=== PATIENT | male | born 1980 | race Caucasian/White ===

== ENCOUNTER 2019-08-15 20:47 | Emergency (ER) | payer OTHER ==
[~2019-08-15] VITALS: Ht 180 cm; Wt 81.0 kg
[2019-08-15] MEDS ORDERED: PROMETHAZINE INJ 25 MG/ML (PHENERGAN) AMP IVP STA (21:18)
[2019-08-15] MEDS ORDERED: NS IV 1000 ML 1,000 ML IV SCH (21:18)
[2019-08-15] MEDS ORDERED: morphine INJ 10 MG/ML 1ML (SYR OR VIAL) IVP STA (21:19)
[2019-08-15 21:21] LABS: BASOPHILS % (AUTO) 0 % (0-10); EOSINOPHILS # (AUTO) 0.5 10^3/uL (0.0-0.3); EOSINOPHILS % (AUTO) 5 % (0-10); HEMATOCRIT 44 % (40-54); HEMOGLOBIN 14.4 G/DL (13.3-17.7); LYMPHOCYTES # (AUTO) 2.5 X 10^3 (1.0-4.0); LYMPHOCYTES % (AUTO) 24 % (12-44); MEAN CORPUSCULAR HEMOGLOBIN 30 PG (25-34); MEAN CORPUSCULAR HGB CONC 33 G/DL (32-36); MEAN CORPUSCULAR VOLUME 91 FL (80-99); MEAN PLATELET VOLUME 10.8 FL (7.4-10.4); MONOCYTES # (AUTO) 0.6 X 10^3 (0.0-1.0); MONOCYTES % (AUTO) 6 % (0-12); NEUTROPHILS # (AUTO) 6.6 X 10^3 (1.8-7.8); NEUTROPHILS % (AUTO) 65 % (42-75); PLATELET COUNT 239 10^3/uL (130-400); RED CELL DISTRIBUTION WIDTH 14.9 % (10.0-14.5); WHITE BLOOD COUNT 10.3 10^3/uL (4.3-11.0)
--- NOTE | 2019-08-15 21:31 | ED GU-Male ---
General Chief Complaint: Abdominal/GI Problems Stated Complaint: KIDNEY STONE SYMPTOMS Nursing Triage Note: PT AMBULATES TO [facility] WITH c/o RIGHT SIDED FLANK PAIN, STARTED AT 2000 THIS EVENING. PT HAS HX OF KIDNEY STONES AND REPORTS PASSING A FEW LAST WEEK. PT ALSO REPORTS N/V WITH ONSET OF PAIN. History of Present Illness Date Seen by Provider: Aug 15, 2019 Time Seen by Provider: 21:00 Initial Comments 39-year-old male presents for right sided abdominal and low back pain compatible with kidney stone. She chronically has kidney stones and kidney disease. He sees a Disability Benefits Specialist in [place], [place]. He is on Morphine ER po at home for chronic kidney pain and breakthrough pain. He also vomited, due to the pain. Symptoms began at 2000 tonight. He reports last passing stones 2 weeks ago. They are usually small enough to pass and he hasn't required surgery for several years. Patient tearful, from pain. Patient taking Amoxicillin from his PCP for UTI. Timing/Duration: just prior to arrival Severity/Quality: severe Location: RLQ Radiation: right flank Activities at Onset: none Associated Symptoms: abdominal pain, dysuria, lower back pain, nausea/vomiting Allergies and Home Medications Allergies Coded Allergies: acetaminophen (Unverified Allergy, Intermediate, 08/15/19) dexamethasone (Unverified Allergy, Intermediate, 08/15/19) fentanyl (Unverified Allergy, Intermediate, 08/15/19) glycopyrrolate (Unverified Allergy, Intermediate, 08/15/19) ketorolac (Unverified Allergy, Intermediate, 08/15/19) metoclopramide (Unverified Allergy, Intermediate, 08/15/19) oxycodone (Unverified Allergy, Intermediate, 08/15/19) prochlorperazine (Unverified Allergy, Intermediate, 08/15/19) promethazine (Unverified Allergy, Intermediate, 08/15/19) suppository route only Patient Home Medication List Home Medication List Reviewed: Yes Review of Systems Review of Systems Constitutional: no symptoms reported, see HPI Gastrointestinal: RLQ, see HPI Genitourinary: see HPI, flank pain All Other Systemes Reviewed Negative Unless Noted: Yes Past Dswjtde-Pgaduh-Vxgiho Hx Past Med/Social Hx: Reviewed Nursing Past Med/Soc Hx Patient Social History Alcohol Use: Denies Use Recreational Drug Use: No Smoking Status: Never a Smoker 2nd Hand Smoke Exposure: No Recent Foreign Travel: No Contact w/Someone Who Travel: No Recent Infectious Disease Expo: No Recent Hopitalizations: No Physical Abuse: No Sexual Abuse: No Mistreated: No Fear: No Seasonal Allergies Seasonal Allergies: No Past Medical History Surgeries: Yes (2 LITHOTRIPSY ) Respiratory: No Cardiac: No Neurological: No Genitourinary: No Gastrointestinal: No Musculoskeletal: No Endocrine: No HEENT: No Cancer: No Psychosocial: No Integumentary: No Blood Disorders: No Physical Exam Vital Signs Vital Signs - First Documented 08/15/19 20:55 Temp 37.2 Pulse 135 Resp 18 B/P (MAP) 136/89 (105) Pulse Ox 89 O2 Delivery Room Air Capillary Refill : Less Than 3 Seconds Height, Weight, BMI Height: '" Weight: lbs. oz. kg; 25.00 BMI Method: General Appearance: WD/WN, no apparent distress HEENT: PERRL/EOMI, normal ENT inspection, TMs normal, pharynx normal Neck: non-tender, full range of motion, supple, normal inspection Cardiovascular: normal peripheral pulses, regular rate, rhythm Respiratory: chest non-tender, lungs clear, normal breath sounds Gastrointestinal: normal bowel sounds, soft; No distended, No guarding, No rebound; tenderness (right lower quadrant) Back: normal inspection, no vertebral tenderness, CVA tenderness (R); No CVA tenderness (L) Extremities: normal range of motion, non-tender, normal inspection Neurologic/Psychiatric: no motor/sensory deficits, alert, normal mood/affect, oriented x 3 Skin: normal color, warm/dry Progress/Results/Core Measures Suspected Sepsis Recent Fever Within 48 Hours: No Infection Criteria Present: None New/Unexplained Altered Menta: No Sepsis Screen: No Definite Risk SIRS Temperature: Pulse: 135 Respiratory Rate: 18 Laboratory Tests 08/15/19 21:10: White Blood Count 10.3 Blood Pressure 136 /89 Mean: 105 Laboratory Tests 08/15/19 21:10: Creatinine 3.35H, Platelet Count 239, Total Bilirubin 0.4 Results/Orders Lab Results Laboratory Tests Test 08/15/19 21:10 08/15/19 21:24 Range/Units White Blood Count 10.3 4.3-11.0 10^3/uL Red Blood Count 4.85 4.35-5.85 10^6/uL Hemoglobin 14.4 13.3-17.7 G/DL Hematocrit 44 40-54 % Mean Corpuscular Volume 91 80-99 FL Mean Corpuscular Hemoglobin 30 25-34 PG Mean Corpuscular Hemoglobin Concent 33 32-36 G/DL Red Cell Distribution Width 14.9 H 10.0-14.5 % Platelet Count 239 130-400 10^3/uL Mean Platelet Volume 10.8 H 7.4-10.4 FL Neutrophils (%) (Auto) 65 42-75 % Lymphocytes (%) (Auto) 24 12-44 % Monocytes (%) (Auto) 6 0-12 % Eosinophils (%) (Auto) 5 0-10 % Basophils (%) (Auto) 0 0-10 % Neutrophils # (Auto) 6.6 1.8-7.8 X 10^3 Lymphocytes # (Auto) 2.5 1.0-4.0 X 10^3 Monocytes # (Auto) 0.6 0.0-1.0 X 10^3 Eosinophils # (Auto) 0.5 H 0.0-0.3 10^3/uL Basophils # (Auto) 0.0 0.0-0.1 10^3/uL Sodium Level 142 135-145 MMOL/L Potassium Level 3.4 L 3.6-5.0 MMOL/L Chloride Level 106 98-107 MMOL/L Carbon Dioxide Level 24 21-32 MMOL/L Anion Gap 12 5-14 MMOL/L Blood Urea Nitrogen 29 H 7-18 MG/DL Creatinine 3.35 H 0.60-1.30 MG/DL Estimat Glomerular Filtration Rate 21 BUN/Creatinine Ratio 9 Glucose Level 135 H 70-105 MG/DL Calcium Level 9.2 8.5-10.1 MG/DL Corrected Calcium 8.8 8.5-10.1 MG/DL Total Bilirubin 0.4 0.1-1.0 MG/DL Aspartate Amino Transf (AST/SGOT) 22 5-34 U/L Alanine Aminotransferase (ALT/SGPT) 26 0-55 U/L Alkaline Phosphatase 162 H 40-136 U/L Total Protein 8.5 H 6.4-8.2 GM/DL Albumin 4.5 3.2-4.5 GM/DL Urine Color YELLOW Urine Clarity CLEAR Urine pH 7 5-9 Urine Specific [place] 1.015 L 1.016-1.022 Urine Protein 3+ H NEGATIVE Urine Glucose (UA) 2+ H NEGATIVE Urine Ketones NEGATIVE NEGATIVE Urine Nitrite NEGATIVE NEGATIVE Urine Bilirubin NEGATIVE NEGATIVE Urine Urobilinogen NORMAL NORMAL MG/DL Urine Leukocyte Esterase 3+ H NEGATIVE Urine RBC (Auto) 3+ H NEGATIVE Urine RBC 0-2 /HPF Urine WBC 50-100 H /HPF Urine Squamous Epithelial Cells NONE /HPF Urine Crystals NONE /LPF Urine Bacteria FEW H /HPF Urine Casts NONE /LPF Urine Mucus NEGATIVE /LPF Urine Culture Indicated YES My Orders Orders - MARVIN WILLIAMSON Ua Culture If Indicated (08/15/19 20:54) Ct Abd/Pelvis Wo(Kidney Stone) (08/15/19 21:05) Cbc With Automated Diff (08/15/19 21:05) Comprehensive Metabolic Panel (08/15/19 21:05) Ed Iv/Invasive Line Start (08/15/19 21:10) Promethazine Injection (Phenergan Injec (08/15/19 21:18) Ed Iv/Invasive Line Start (08/15/19 21:18) Ns Iv 1000 Ml (Sodium Chloride 0.9%) (08/15/19 21:18) Morphine Injection (Morphine Injection (08/15/19 21:19) Urine Culture (08/15/19 21:24) Vital Signs/I&O 08/15/19 20:55 Temp 37.2 Pulse 135 Resp 18 B/P (MAP) 136/89 (105) Pulse Ox 89 O2 Delivery Room Air Capillary Refill : Less Than 3 Seconds Blood Pressure Mean: 105 Progress Note : Time: 21:00 Progress Note Patient seen and evaluated, we'll obtain CT of the abdomen and pelvis for kidney stones, Phenergan 25 mg IV for nausea and vomiting(Patient can having IV Phenergan, does not tolerate Phenergan suppository), morphine 5 mg IV for pain, normal saline 1 L per IV. Pain 05/19 2145 Pain 02/[address] findings with the patient and his mother. He does report that his last creatinine was around 3.2 but he is unsure of the exact amount. Today at 3.35. She reports no further nausea and vomiting. Pain continues to be maintained. Discharge instructions and return precautions reviewed with him. He will schedule follow-up with his automatic spooler operator. Diagnostic Imaging Diagonstic Imaging: CT Plain Films/CT/US/NM/MRI: abdomen, pelvis Comments NAME: YUE GIL [facility] REC#: [id number] PT STATUS: REG ER : 1980 PHYSICIAN: MARVIN WILLIAMSON ADMIT DATE: 08/15/19/ER Draft Date of Exam:08/15/19 CT ABD/PELVIS WO(KIDNEY STONE) INDICATION: Abdominal pain, history of kidney stones. CT abdomen and pelvis obtained without IV contrast. Visualized portions of the lung bases are clear. There were no pleural fluid collections. There is no free intraperitoneal air. The liver and gallbladder appear normal. Spleen, adrenals, and pancreas appear normal. Kidneys bilaterally show numerous nonocclusive stones throughout both kidneys as well as some medullary calcifications. There is a cyst in the right kidney measuring about 3 cm. There is no retroperitoneal mass or adenopathy. There is no ureteral stone or hydronephrosis. There is no pelvic mass. Visualized bowel loops including the appendix appear unremarkable. IMPRESSION: Extensive bilateral nephrolithiasis. Benign-appearing cyst in right kidney. There is no hydronephrosis or ureteral stone. Dictated on workstation # [id number] Dict: 08/15/192135 Trans: 08/15/192141 [facility] [id number] Interpreted by: LUCIA HAIRSTON MD Electronically signed by: Reviewed: Reviewed by Me Departure Impression Primary Impression: Recurrent nephrolithiasis Additional Impressions: Urinary tract infection Qualified Codes: N30.01 - Acute cystitis with hematuria Chronic kidney disease (CKD) Qualified Codes: N18.9 - Chronic kidney disease, unspecified Disposition: HOME, SELF-CARE Condition: Improved Departure-Patient Inst. Decision time for Depature: 22:15 Referrals: SEAN MCGREGOR MD (PCP/Family) Primary Care Physician Patient Instructions: Kidney Stones (DC) Add. Discharge Instructions: Continue taking your amoxicillin. Continue taking your home medications for pain and nausea. Schedule follow-up with your automatic spooler operator. Return to the emergency department for fever greater than 101 not relieved by Tylenol or ibuprofen, persistent nausea and vomiting, or new concerns. All discharge instructions reviewed with patient and/or family. Voiced understanding. MARVIN WILLIAMSON Aug 15, 2019 21:31
[2019-08-15 21:36] LABS: BILIRUBIN,URINE NEGATIVE (NEGATIVE); CLARITY,URINE CLEAR; COLOR,URINE YELLOW; GLUCOSE, URINE (UA) 2+ (NEGATIVE); KETONES,URINE NEGATIVE (NEGATIVE); LEUKOCYTE ESTERASE ,URINE 3+ (NEGATIVE); NITRITE,URINE NEGATIVE (NEGATIVE); PH,URINE 7 (5-9); PROTEIN,URINE 3+ (NEGATIVE); UROBILINOGEN,URINE NORMAL (NORMAL)
[2019-08-15 21:43] LABS: BACTERIA,URINE FEW /HPF; RBC,URINE 0-2 /HPF; WBC,URINE 50-100 /HPF
[2019-08-15 21:44] LABS: ALBUMIN 4.5 GM/DL (3.2-4.5); BILIRUBIN,TOTAL 0.4 MG/DL (0.1-1.0); CALCIUM 9.2 MG/DL (8.5-10.1); CREATININE SERUM 3.35 MG/DL (0.60-1.30); POTASSIUM 3.4 MMOL/L (3.6-5.0); TOTAL PROTEIN 8.5 GM/DL (6.4-8.2)
--- NOTE | 2019-08-15 21:44 | Diagnostic Imaging Report ---
INDICATION: Abdominal pain, history of kidney stones. CT abdomen and pelvis obtained without IV contrast. Visualized portions of the lung bases are clear. There were no pleural fluid collections. There is no free intraperitoneal air. The liver and gallbladder appear normal. Spleen, adrenals, and pancreas appear normal. Kidneys bilaterally show numerous nonocclusive stones throughout both kidneys as well as some medullary calcifications. There is a cyst in the right kidney measuring about 3 cm. There is no retroperitoneal mass or adenopathy. There is no ureteral stone or hydronephrosis. There is no pelvic mass. Visualized bowel loops including the appendix appear unremarkable. IMPRESSION: Extensive bilateral nephrolithiasis. Benign-appearing cyst in right kidney. There is no hydronephrosis or ureteral stone. Dictated by: Dictated on workstation # [id number]
[2019-08-15 22:38] VITALS: BP 130/88
== END 2019-08-15 22:38 | disposition home or self-care (01) ==
LOC: EDUNIT# 20:47 → ER 20:50
DX: N20.0 Calculus of kidney (principal); N39.0 Urinary tract infection, site not specified; N18.9 Chronic kidney disease, unspecified; Z88.6 Allergy status to analgesic agent; Z88.5 Allergy status to narcotic agent; Z88.8 Allergy status to other drugs, medicaments and biological substances
CPT/HCPCS: 36415; 74176; 80053; 81000; 85025; 87088

== ENCOUNTER 2021-03-13 15:44 | Emergency (ER) | payer MEDICARE, MEDICAID ==
[~2021-03-13] VITALS: Ht 180.3 cm; Wt 67.7 kg
[2021-03-13 16:11] LABS: BILIRUBIN,URINE NEGATIVE (NEGATIVE); CLARITY,URINE CLEAR; COLOR,URINE YELLOW; GLUCOSE, URINE (UA) TRACE (NEGATIVE); KETONES,URINE NEGATIVE (NEGATIVE); LEUKOCYTE ESTERASE ,URINE TRACE (NEGATIVE); NITRITE,URINE POSITIVE (NEGATIVE); PROTEIN,URINE 2+ (NEGATIVE)
[2021-03-13 16:20] LABS: AMORPHOUS SEDIMENT,UR FEW AMOR URATES /LPF; BACTERIA,URINE TRACE /HPF; RENAL EPITHELIAL CELLS,URINE 0-2 /HPF; SQUAMOUS EPITHELIAL CELL,UR 0-2 /HPF
[2021-03-13] MEDS ORDERED: NS IV 1000 ML 1,000 ML IV SCH (16:30)
[2021-03-13] MEDS ORDERED: fentaNYL INJ 100 MCG/2 ML AMP IVP ONE (16:45)
[2021-03-13] MEDS ORDERED: ONDANSETRON 4 MG/2 ML (SDV) Z0FRAN IVP ONE (16:45)
[2021-03-13] MEDS ORDERED: morphine INJ 4 MG/ML 1 ML (VIAL/SYRINGE) IVP ONE (16:45)
[2021-03-13] MEDS ORDERED: morphine INJ 10 MG/ML 1ML (SYR OR VIAL) ONE (16:48)
[2021-03-13 16:49] LABS: BASOPHILS # (AUTO) 0.1 10^3/uL (0.0-0.1); BASOPHILS % (AUTO) 1 % (0-10); EOSINOPHILS % (AUTO) 0 % (0-10); HEMATOCRIT 35 % (40-54); HEMOGLOBIN 11.2 g/dL (13.3-17.7); LYMPHOCYTES # (AUTO) 1.7 10^3/uL (1.0-4.0); LYMPHOCYTES % (AUTO) 23 % (12-44); MEAN CORPUSCULAR HEMOGLOBIN 30 pg (25-34); MEAN CORPUSCULAR HGB CONC 32 g/dL (32-36); MEAN CORPUSCULAR VOLUME 95 fL (80-99); MEAN PLATELET VOLUME 12.1 fL (9.0-12.2); MONOCYTES # (AUTO) 0.3 10^3/uL (0.0-1.0); MONOCYTES % (AUTO) 5 % (0-12); NEUTROPHILS # (AUTO) 5.1 10^3/uL (1.8-7.8); NEUTROPHILS % (AUTO) 71 % (42-75); PLATELET COUNT 175 10^3/uL (130-400); WHITE BLOOD COUNT 7.2 10^3/uL (4.3-11.0)
[2021-03-13] MEDS ORDERED: morphine INJ 10 MG/ML 1ML (SYR OR VIAL) IVP STA (16:53)
[2021-03-13 16:57] LABS: AMPHETAMINE SCREEN, URINE NEGATIVE (NEGATIVE); BARBITURATE SCREEN URINE NEGATIVE (NEGATIVE); BENZODIAZEPINES SCREEN URINE NEGATIVE (NEGATIVE); CANNABINOID SCREEN, URINE NEGATIVE (NEGATIVE); COCAINE SCREEN URINE NEGATIVE (NEGATIVE); METHADONE STAT NEGATIVE (NEGATIVE); METHAMPHETAMINE SCREEN URINE S NEGATIVE (NEGATIVE); OPIATE SCREEN URINE POSITIVE (NEGATIVE); OXYCODONE STAT NEGATIVE (NEGATIVE); PROPOXYPHENE STAT NEGATIVE (NEGATIVE); TRICYCLIC ANTIDEPRESSANTS SCRE NEGATIVE (NEGATIVE)
[2021-03-13 17:04] LABS: ALBUMIN 4.1 GM/DL (3.2-4.5); BILIRUBIN,TOTAL 0.5 MG/DL (0.1-1.0); CALCIUM 8.9 MG/DL (8.5-10.1); CREATININE SERUM 3.47 MG/DL (0.60-1.30); POTASSIUM 2.8 MMOL/L (3.6-5.0); TOTAL PROTEIN 7.6 GM/DL (6.4-8.2)
--- NOTE | 2021-03-13 17:43 | Diagnostic Imaging Report ---
PROCEDURE: CT urinary tract, rule out kidney stone. TECHNIQUE: Multiple contiguous axial images were obtained through the abdomen and pelvis without the use of intravenous contrast. Auto Exposure Controls were utilized during the CT exam to meet ALARA standards for radiation dose reduction. INDICATION: Right flank pain, history of nephrolithiasis. COMPARISON: Exam compared with study of 08/15/2019. 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 There is no hydroureteronephrosis. A right renal cyst is unchanged. No perinephric or periureteric edema. No radiopaque ureteral calculi. There was no bladder stone. The bladder wall is non thickened. Uterus is absent. No adnexal lesion. There is noninflamed diverticulosis of the sigmoid. The appendix is unremarkable. There are stones layering within the dependent gallbladder. No bile duct dilatation. Spleen, adrenals, and pancreas are unremarkable. IMPRESSION: Bilateral nephrolithiasis, unchanged. No hydronephrosis or ureteral stone. Nonacute appendix. Noninflamed diverticulosis. Cholelithiasis without CT findings of acute cholecystitis or biliary ductal dilatation. Dictated by: Dictated on workstation # [id number]
[2021-03-13] MEDS: POTASSIUM CL 10MEQ/50ML IVPB 50 ML IV SCH ×2 (17:56→18:58)
--- NOTE | 2021-03-13 17:56 | ED GU-Male ---
General Chief Complaint: Abdominal/GI Problems Stated Complaint: FLANK PAIN Nursing Triage Note: AMB TO ED WITH FEMALE C/O R SIDE PAIN HAS PMH OF KIDNEY DIEASE AND SEE'S NEPHROLOGY IN [place] HAS APPOINTMENT ON 03/15 REPORTS KIDNEYS HAS LOTS OF STONES. History of Present Illness Date Seen by Provider: March 13, 2021 Time Seen by Provider: 15:50 Initial Comments 41-year-old male presents for bilateral flank pain. He has had multiple kidney stones in the past and follows with a cook house supervisor in [place] for medullary sponge kidney disease. He complains of significant nausea and vomited after taking his morphine at home. He has an appointment scheduled in 2 days with his cook house supervisor. He last passed kidney stones approximately 4 weeks ago. Timing/Duration: this afternoon Severity/Quality: moderate Location: right flank, left flank Activities at Onset: none Associated Symptoms: lower back pain, nausea/vomiting Allergies and Home Medications Allergies Coded Allergies: acetaminophen (Unverified Allergy, Intermediate, 08/15/19) dexamethasone (Unverified Allergy, Intermediate, 08/15/19) fentanyl (Unverified Allergy, Intermediate, 08/15/19) glycopyrrolate (Unverified Allergy, Intermediate, 08/15/19) ketorolac (Unverified Allergy, Intermediate, 08/15/19) metoclopramide (Unverified Allergy, Intermediate, 08/15/19) oxycodone (Unverified Allergy, Intermediate, 08/15/19) prochlorperazine (Unverified Allergy, Intermediate, 08/15/19) promethazine (Unverified Allergy, Intermediate, 08/15/19) suppository route only Home Medications Nitrofurantoin Macrocrystal 100 Mg Capsule, 100 MG PO BID Prescribed by: MARVIN WILLIAMSON on 03/13/211913 Ondansetron 4 Mg Tab.rapdis, 4 MG PO Q6H PRN for NAUSEA/VOMITING Prescribed by: MARVIN WILLIAMSON on 03/13/211913 Patient Home Medication List Home Medication List Reviewed: Yes Review of Systems Review of Systems Constitutional: no symptoms reported, see HPI Gastrointestinal: see HPI; No diarrhea; nausea, vomiting Genitourinary: see HPI, dysuria, pain All Other Systemes Reviewed Negative Unless Noted: Yes Past Zdyhqal-Qrxyyp-Dpulvq Hx Past Med/Social Hx: Reviewed Nursing Past Med/Soc Hx Patient Social History Alcohol Use: Denies Use Smoking Status: Never a Smoker 2nd Hand Smoke Exposure: No Recent Infectious Disease Expo: No Recent Hopitalizations: No Seasonal Allergies Seasonal Allergies: No Past Medical History Surgeries: Yes (2 LITHOTRIPSY ) Respiratory: No Cardiac: No Neurological: No Genitourinary: Yes Gastrointestinal: No Musculoskeletal: No Endocrine: No HEENT: No Cancer: No Psychosocial: No Integumentary: No Blood Disorders: No Physical Exam Vital Signs Vital Signs - First Documented 03/13/21 15:48 Temp 36.5 Pulse 100 Resp 18 B/P (MAP) 130/66 (87) Pulse Ox 100 O2 Delivery Room Air Capillary Refill : Less Than 3 Seconds Height, Weight, BMI Height: '" Weight: lbs. oz. kg; 20.00 BMI Method: General Appearance: WD/WN, no apparent distress HEENT: PERRL/EOMI, normal ENT inspection, TMs normal, pharynx normal Neck: non-tender, full range of motion, supple, normal inspection Cardiovascular: normal peripheral pulses, regular rate, rhythm Respiratory: chest non-tender, lungs clear, normal breath sounds Gastrointestinal: normal bowel sounds, non tender, soft; No distended, No guarding, No rebound, No tenderness Back: CVA tenderness (R), CVA tenderness (L) Extremities: normal range of motion, non-tender, normal inspection Neurologic/Psychiatric: no motor/sensory deficits, alert, normal mood/affect, oriented x 3 Skin: normal color, warm/dry Progress/Results/Core Measures Suspected Sepsis Recent Fever Within 48 Hours: No Infection Criteria Present: None New/Unexplained Altered Menta: No Sepsis Screen: No Definite Risk SIRS Temperature: Pulse: 100 Respiratory Rate: 18 Laboratory Tests 03/13/21 16:00: White Blood Count 7.2 Blood Pressure 130 /66 Mean: 87 Laboratory Tests 03/13/21 16:00: Creatinine 3.47H, Platelet Count 175, Total Bilirubin 0.5 Results/Orders Lab Results Laboratory Tests Test 03/13/21 16:00 03/13/21 16:05 Range/Units White Blood Count 7.2 4.3-11.0 10^3/uL Red Blood Count 3.71 L 4.30-5.52 10^6/uL Hemoglobin 11.2 L 13.3-17.7 g/dL Hematocrit 35 L 40-54 % Mean Corpuscular Volume 95 80-99 fL Mean Corpuscular Hemoglobin 30 25-34 pg Mean Corpuscular Hemoglobin Concent 32 32-36 g/dL Red Cell Distribution Width 13.5 10.0-14.5 % Platelet Count 175 130-400 10^3/uL Mean Platelet Volume 12.1 9.0-12.2 fL Immature Granulocyte % (Auto) 0 % Neutrophils (%) (Auto) 71 42-75 % Lymphocytes (%) (Auto) 23 12-44 % Monocytes (%) (Auto) 5 0-12 % Eosinophils (%) (Auto) 0 0-10 % Basophils (%) (Auto) 1 0-10 % Neutrophils # (Auto) 5.1 1.8-7.8 10^3/uL Lymphocytes # (Auto) 1.7 1.0-4.0 10^3/uL Monocytes # (Auto) 0.3 0.0-1.0 10^3/uL Eosinophils # (Auto) 0.0 0.0-0.3 10^3/uL Basophils # (Auto) 0.1 0.0-0.1 10^3/uL Immature Granulocyte # (Auto) 0.0 0.0-0.1 10^3/uL Sodium Level 140 135-145 MMOL/L Potassium Level 2.8 L 3.6-5.0 MMOL/L Chloride Level 103 98-107 MMOL/L Carbon Dioxide Level 29 21-32 MMOL/L Anion Gap 8 5-14 MMOL/L Blood Urea Nitrogen 22 H 7-18 MG/DL Creatinine 3.47 H 0.60-1.30 MG/DL Estimat Glomerular Filtration Rate 20 BUN/Creatinine Ratio 6 Glucose Level 113 H 70-105 MG/DL Calcium Level 8.9 8.5-10.1 MG/DL Corrected Calcium 8.8 8.5-10.1 MG/DL Total Bilirubin 0.5 0.1-1.0 MG/DL Aspartate Amino Transf (AST/SGOT) 16 5-34 U/L Alanine Aminotransferase (ALT/SGPT) 11 0-55 U/L Alkaline Phosphatase 75 40-136 U/L Total Protein 7.6 6.4-8.2 GM/DL Albumin 4.1 3.2-4.5 GM/DL Urine Color YELLOW Urine Clarity CLEAR Urine pH 6.0 5-9 Urine Specific [place] 1.020 1.016-1.022 Urine Protein 2+ H NEGATIVE Urine Glucose (UA) TRACE H NEGATIVE Urine Ketones NEGATIVE NEGATIVE Urine Nitrite POSITIVE H NEGATIVE Urine Bilirubin NEGATIVE NEGATIVE Urine Urobilinogen 0.2 < = 1.0 MG/DL Urine Leukocyte Esterase TRACE H NEGATIVE Urine RBC (Auto) 2+ H NEGATIVE Urine RBC NONE /HPF Urine WBC 5-10 H /HPF Urine Squamous Epithelial Cells 0-2 /HPF Urine Renal Epithelial Cells 0-2 /HPF Urine Crystals PRESENT H /LPF Urine Amorphous Sediment FEW LUCINDA URATES H /LPF Urine Bacteria TRACE /HPF Urine Casts NONE /LPF Urine Mucus NEGATIVE /LPF Urine Culture Indicated YES Urine Opiates Screen POSITIVE H NEGATIVE Urine Oxycodone Screen NEGATIVE NEGATIVE Urine Methadone Screen NEGATIVE NEGATIVE Urine Propoxyphene Screen NEGATIVE NEGATIVE Urine Barbiturates Screen NEGATIVE NEGATIVE Ur Tricyclic Antidepressants Screen NEGATIVE NEGATIVE Urine Phencyclidine Screen NEGATIVE NEGATIVE Urine Amphetamines Screen NEGATIVE NEGATIVE Urine Methamphetamines Screen NEGATIVE NEGATIVE Urine Benzodiazepines Screen NEGATIVE NEGATIVE Urine Cocaine Screen NEGATIVE NEGATIVE Urine Cannabinoids Screen NEGATIVE NEGATIVE My Orders Orders - CLAY,MARVIN DEVELOPMENTAL WRITING INSTRUCTOR Ua Culture If Indicated (03/13/21 15:47) Urine Culture (03/13/21 16:05) Ed Iv/Invasive Line Start (03/13/21 16:22) Ns Iv 1000 Ml (Sodium Chloride 0.9%) (03/13/21 16:30) Drug Screen Stat (Urine) (03/13/21 16:32) Ondansetron Injection (Zofran Injectio (03/13/21 16:45) Ct Abd/Pelvis Wo(Kidney Stone) (03/13/21 16:43) Cbc With Automated Diff (03/13/21 16:44) Comprehensive Metabolic Panel (03/13/21 16:44) Morphine Injection (Morphine Injection (03/13/21 16:53) Morphine Injection (Morphine Injection (03/13/21 16:48) Potassium Cl 10meq/50ml Ivpb (Kcl 10 Meq (03/13/21 17:45) Ceftriaxone For Iv Use (Rocephin For I (03/13/21 18:15) Rx-Nitrofurantoin [place] (Rx-Macrobid) (03/13/21 18:18) Rx-Ondansetron Po (Rx-Zofran Po) (03/13/21 18:18) Medications Given in ED Current Medications Medications Dose Ordered Sig/Ashley Route Start Time Stop Time Status Last Admin Dose Admin Ceftriaxone Sodium 2000 mg/ Sterile Water 20 ml @ 240 mls/hr ONCE ONCE IV 03/13/21 18:15 03/13/21 18:19 DC 03/13/21 18:25 240 MLS/HR Ondansetron HCl 8 mg ONCE ONCE IVP 03/13/21 16:45 03/13/21 16:46 DC 03/13/21 16:57 8 MG Vital Signs/I&O 03/13/21 03/13/21 15:48 19:38 Temp 36.5 36.5 Pulse 100 89 Resp 18 18 B/P (MAP) 130/66 (87) 128/67 (87) Pulse Ox 100 100 O2 Delivery Room Air Capillary Refill : Less Than 3 Seconds Blood Pressure Mean: 87 Progress Note : Time: 15:50 Progress Note Patient seen and evaluated, will give Toradol 30 mg IV, Zofran 8 mg IV, normal saline 1 L per IV, labs and obtain a CT of the abdomen pelvis for kidney stones. 1640 no nephrolithiasis, pain has improved after morphine 5 mg IV no further nausea or vomiting. Potassium is low we will give 20 mEq IV. 1730 UA results reviewed with the patient, will give Rocephin 2 g IV. 183 discharge instructions and return precautions reviewed with the patient. All questions answered. Diagnostic Imaging Diagonstic Imaging: CT Plain Films/CT/US/NM/MRI: abdomen, pelvis Comments NAME: YUE GIL [facility] REC#: [id number] PT STATUS: REG ER : 1980 PHYSICIAN: MARVIN WILLIAMSONP ADMIT DATE: 03/13/21/ER Signed Date of Exam:03/13/21 CT ABD/PELVIS WO(KIDNEY STONE) PROCEDURE: CT urinary tract, rule out kidney stone. TECHNIQUE: Multiple contiguous axial images were obtained through the abdomen and pelvis without the use of intravenous contrast. Auto Exposure Controls were utilized during the CT exam to meet ALARA standards for radiation dose reduction. INDICATION: Right flank pain, history of nephrolithiasis. COMPARISON: Exam compared with study of 08/15/2019. 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 There is no hydroureteronephrosis. A right renal cyst is unchanged. No perinephric or periureteric edema. No radiopaque ureteral calculi. There was no bladder stone. The bladder wall is non thickened. Uterus is absent. No adnexal lesion. There is noninflamed diverticulosis of the sigmoid. The appendix is unremarkable. There are stones layering within the dependent gallbladder. No bile duct dilatation. Spleen, adrenals, and pancreas are unremarkable. IMPRESSION: Bilateral nephrolithiasis, unchanged. No hydronephrosis or ureteral stone. Nonacute appendix. Noninflamed diverticulosis. Cholelithiasis without CT findings of acute cholecystitis or biliary ductal dilatation. Dictated by: Dictated on workstation # [id number] Dict: 03/13/21 1735 Trans: 03/13/211742 AS6 [id number] Interpreted by: CHARLIE STEELE Electronically signed by: CHARLIE STEELE 03/13/211742 Departure Impression Primary Impression: Medullary sponge kidney Additional Impressions: Urinary tract infection Qualified Codes: N30.01 - Acute cystitis with hematuria Nausea and vomiting Qualified Codes: R11.2 - Nausea with vomiting, unspecified Disposition: HOME, SELF-CARE Condition: Improved Departure-Patient Inst. Decision time for Depature: 18:30 Referrals: SEAN MCGREGOR MD (PCP/Family) Primary Care Physician Patient Instructions: Urinary Tract Infection, Adult (DC) Add. Discharge Instructions: Increase water intake, 16 ounces every 2-3 hours while awake. Take antibiotics as prescribed. Keep your scheduled follow-up with nephrology. Use Zofran every 6-8 hours as needed for nausea and vomiting. Return to the emergency department for new, urgent healthcare problems. All discharge instructions reviewed with patient and/or family. Voiced understanding. Scripts Ondansetron (Ondansetron Odt) 4 Mg Tab.rapdis 4 MG PO Q6H PRN for NAUSEA/VOMITING, #8 TAB 0 Refills Prov: MARVIN WILLIAMSON DEVELOPMENTAL WRITING INSTRUCTOR 03/13/21 Nitrofurantoin Macrocrystal (Nitrofurantoin) 100 Mg Capsule 100 MG PO BID, #14 CAP 0 Refills Prov: MARVIN WILLIAMSON DEVELOPMENTAL WRITING INSTRUCTOR 03/13/21 MARVIN WILLIAMSON DEVELOPMENTAL WRITING INSTRUCTOR March 13, 2021 17:56
[2021-03-13] MEDS ORDERED: cefTRIAXone FOR IV USE 2,000 MG in WATER (STERILE) FOR INJECTION 20 ML IV ONE (18:15)
[2021-03-13] MEDS ORDERED: RX-NITROFURANTOIN 100 MG (MACROBID) CAP PPK#2 PO STA (18:18)
[2021-03-13] MEDS ORDERED: RX-ONDANSETRON 4 MG ODT (ZOFRAN) PPK #4 PO STA (18:18)
[2021-03-13] MEDS ORDERED: ONDA4TAB11 PO (19:14)
[2021-03-13] MEDS ORDERED: NITR100C PO (19:14)
[2021-03-13 19:38] VITALS: BP 128/67
[2021-03-15] MEDS ORDERED: morphine IMMEDIATE RELEASE 15 MG TABLET PO SCH (14:15)
[2021-03-15] MEDS ORDERED: ONDANSETRON 4 MG/2 ML (SDV) Z0FRAN IVP ONE (14:15)
[2021-03-15] MEDS ORDERED: NS IV 1000 ML 1,000 ML IV SCH (14:15)
== END 2021-03-13 19:38 | disposition home or self-care (01) ==
LOC: EDUNIT# 15:44 → ER 15:46
DX: Q61.5 Medullary cystic kidney (principal); N39.0 Urinary tract infection, site not specified; R11.2 Nausea with vomiting, unspecified; Z88.5 Allergy status to narcotic agent; Z88.6 Allergy status to analgesic agent; Z88.8 Allergy status to other drugs, medicaments and biological substances
CPT/HCPCS: 36415; 74176; 80053; 80306; 81000; 85025; 87077; 87088

== ENCOUNTER 2021-03-15 14:02 | Emergency (ER) | payer MEDICARE, MEDICAID ==
[~2021-03-15] VITALS: Ht 180 cm; Wt 67.7 kg
[~2021-03-15 14:02] MED LIST: NITR100C PO; ONDA4TAB11 PO
--- NOTE | 2021-03-15 14:21 | ED GU-Female ---
General Chief Complaint: - Urinary Stated Complaint: L FLANK PAIN Nursing Triage Note: PT TO [facility] 7 BY EMS WITH CC OF KIDNEY STONES, CRYING ON ARRIVAL. TAKES MORPHINE PO BUT STATES HE KEEPS THROWING IT UP, LAST DOSE WAS 0800 THEN THREW UP A DOSE AT 1200. Nursing Sepsis Screen: No Definite Risk Source: patient Exam Limitations: no limitations History of Present Illness Date Seen by Provider: March 15, 2021 Time Seen by Provider: 14:19 Initial Comments To ER by [facility] with reports of severe right sided abdominal pain. He was here 2 days ago for the same with a CT demonstrating his known medullary sponge kidney for which he follows with nephrology in [place]. He is on morphine immediate release and extended release at home. His last dose was this morning, he is unable to take more of it because of nausea and vomiting. He states that he must have morphine or Dilaudid to control his pain. He is allergic to all other options. Timing/Duration: constant Severity/Quality: moderate Location: right flank Radiation: none Activities at Onset: none Prior Genitourinary Problems: none Associated Symptoms: denies symptoms Allergies and Home Medications Allergies Coded Allergies: acetaminophen (Unverified Allergy, Intermediate, 08/15/19) dexamethasone (Unverified Allergy, Intermediate, 08/15/19) fentanyl (Unverified Allergy, Intermediate, 08/15/19) glycopyrrolate (Unverified Allergy, Intermediate, 08/15/19) ketorolac (Unverified Allergy, Intermediate, 08/15/19) metoclopramide (Unverified Allergy, Intermediate, 08/15/19) oxycodone (Unverified Allergy, Intermediate, 08/15/19) prochlorperazine (Unverified Allergy, Intermediate, 08/15/19) promethazine (Unverified Allergy, Intermediate, 08/15/19) suppository route only Home Medications Nitrofurantoin Macrocrystal 100 Mg Capsule, 100 MG PO BID Prescribed by: MARVIN WILLIAMSON on 03/13/211913 Ondansetron 4 Mg Tab.rapdis, 4 MG PO Q6H PRN for NAUSEA/VOMITING Prescribed by: MARVIN WILLIAMSON on 03/13/211913 Patient Home Medication List Home Medication List Reviewed: Yes Review of Systems Review of Systems Constitutional: see HPI EENTM: see HPI Respiratory: no symptoms reported Cardiovascular: no symptoms reported Genitourinary: no symptoms reported Musculoskeletal: no symptoms reported Skin: no symptoms reported Psychiatric/Neurological: No Symptoms Reported Endocrine: No Symptoms Reported Hematologic/Lymphatic: No Symptoms Reported Past Kktftqm-Qumqux-Ppllja Hx Patient Social History Alcohol Use: Denies Use Smoking Status: Never a Smoker 2nd Hand Smoke Exposure: No Recent Infectious Disease Expo: No Recent Hopitalizations: No Seasonal Allergies Seasonal Allergies: No Past Medical History Surgeries: Yes (3 LITHOTRIPSY ) Respiratory: No Cardiac: No Neurological: No Genitourinary: Yes Kidney Stones, UTI-Chronic Gastrointestinal: No Musculoskeletal: No Endocrine: No HEENT: No Cancer: No Psychosocial: No Integumentary: No Blood Disorders: No Physical Exam Vital Signs Vital Signs - First Documented 03/15/21 14:08 Temp 37.0 Pulse 100 Resp 22 B/P (MAP) 107/78 (88) Pulse Ox 100 O2 Delivery Room Air Capillary Refill : Less Than 3 Seconds Height, Weight, BMI Height: '" Weight: lbs. oz. kg; 20.00 BMI Method: General Appearance: WD/WN, no apparent distress, other (Crying. Stable vital signs) HEENT: PERRL/EOMI, normal ENT inspection Neck: non-tender, full range of motion Respiratory: no respiratory distress, no accessory muscle use Gastrointestinal: normal bowel sounds, soft, tenderness Extremities: normal range of motion, non-tender Neurologic/Psychiatric: alert, normal mood/affect Skin: normal color, warm/dry Progress/Results/Core Measures Suspected Sepsis Recent Fever Within 48 Hours: No Infection Criteria Present: None New/Unexplained Altered Menta: No Sepsis Screen: No Definite Risk SIRS Temperature: Pulse: 100 Respiratory Rate: 22 Laboratory Tests 03/15/21 14:13: White Blood Count 7.0 Blood Pressure 107 /78 Mean: 88 Laboratory Tests 03/15/21 14:13: Creatinine 3.19H, Platelet Count 171, Total Bilirubin 0.6 Results/Orders Lab Results Laboratory Tests Test 03/15/21 14:13 03/15/21 15:05 03/15/21 15:45 Range/Units White Blood Count 7.0 4.3-11.0 10^3/uL Red Blood Count 3.65 L 4.30-5.52 10^6/uL Hemoglobin 11.1 L 13.3-17.7 g/dL Hematocrit 34 L 40-54 % Mean Corpuscular Volume 93 80-99 fL Mean Corpuscular Hemoglobin 30 25-34 pg Mean Corpuscular Hemoglobin Concent 33 32-36 g/dL Red Cell Distribution Width 13.4 10.0-14.5 % Platelet Count 171 130-400 10^3/uL Mean Platelet Volume 11.2 9.0-12.2 fL Immature Granulocyte % (Auto) 0 % Neutrophils (%) (Auto) 80 H 42-75 % Lymphocytes (%) (Auto) 13 12-44 % Monocytes (%) (Auto) 5 0-12 % Eosinophils (%) (Auto) 1 0-10 % Basophils (%) (Auto) 1 0-10 % Neutrophils # (Auto) 5.6 1.8-7.8 10^3/uL Lymphocytes # (Auto) 0.9 L 1.0-4.0 10^3/uL Monocytes # (Auto) 0.4 0.0-1.0 10^3/uL Eosinophils # (Auto) 0.1 0.0-0.3 10^3/uL Basophils # (Auto) 0.1 0.0-0.1 10^3/uL Immature Granulocyte # (Auto) 0.0 0.0-0.1 10^3/uL Sodium Level 141 135-145 MMOL/L Potassium Level 2.8 L 3.6-5.0 MMOL/L Chloride Level 105 98-107 MMOL/L Carbon Dioxide Level 25 21-32 MMOL/L Anion Gap 11 5-14 MMOL/L Blood Urea Nitrogen 18 7-18 MG/DL Creatinine 3.19 H 0.60-1.30 MG/DL Estimat Glomerular Filtration Rate 22 BUN/Creatinine Ratio 6 Glucose Level 115 H 70-105 MG/DL Calcium Level 9.1 8.5-10.1 MG/DL Corrected Calcium 8.9 8.5-10.1 MG/DL Total Bilirubin 0.6 0.1-1.0 MG/DL Aspartate Amino Transf (AST/SGOT) 18 5-34 U/L Alanine Aminotransferase (ALT/SGPT) 12 0-55 U/L Alkaline Phosphatase 79 40-136 U/L Total Protein 7.5 6.4-8.2 GM/DL Albumin 4.2 3.2-4.5 GM/DL Serum Alcohol < 10 <10 MG/DL Urine Color YELLOW Urine Clarity CLEAR Urine pH 7.0 5-9 Urine Specific [place] 1.015 L 1.016-1.022 Urine Protein 2+ H NEGATIVE Urine Glucose (UA) TRACE H NEGATIVE Urine Ketones 1+ H NEGATIVE Urine Nitrite NEGATIVE NEGATIVE Urine Bilirubin NEGATIVE NEGATIVE Urine Urobilinogen 0.2 < = 1.0 MG/DL Urine Leukocyte Esterase 1+ H NEGATIVE Urine RBC (Auto) 2+ H NEGATIVE Urine RBC NONE /HPF Urine WBC 2-5 /HPF Urine Squamous Epithelial Cells 0-2 /HPF Urine Crystals NONE /LPF Urine Bacteria TRACE /HPF Urine Casts NONE /LPF Urine Mucus NEGATIVE /LPF Urine Culture Indicated YES My Orders Orders - DONNA GIBSON APRN Cbc With Automated Diff (03/15/21 14:16) Comprehensive Metabolic Panel (03/15/21 14:16) Ua Culture If Indicated (03/15/21 14:16) Drug Screen Stat (Urine) (03/15/21 14:16) Alcohol (03/15/21 14:16) Ed Iv/Invasive Line Start (03/15/21 14:16) Morphine Immediate Release Tab (Morphine (03/15/21 14:30) Ondansetron Injection (Zofran Injectio (03/15/21 14:30) Ns Iv 1000 Ml (Sodium Chloride 0.9%) (03/15/21 14:30) Urine Culture (03/15/21 15:05) Potassium Chloride (Tablet) (Klor Con Ta (03/15/21 16:00) Medications Given in ED Current Medications Medications Dose Ordered Sig/Ashley Route Start Time Stop Time Status Last Admin Dose Admin Ondansetron HCl 8 mg ONCE ONCE IVP 03/15/21 14:30 03/15/21 14:31 DC 03/15/21 14:31 8 MG Vital Signs/I&O 03/15/21 03/15/21 14:08 14:49 Temp 37.0 37.0 Pulse 100 Resp 22 B/P (MAP) 107/78 (88) Pulse Ox 100 O2 Delivery Room Air Capillary Refill : Less Than 3 Seconds Blood Pressure Mean: 88 Departure Impression Primary Impression: Medullary sponge kidney Additional Impression: Chronic pain Disposition: 01 HOME, SELF-CARE Condition: Stable Departure-Patient Inst. Decision time for Depature: 16:01 Referrals: SEAN MCGREGOR MD (PCP/Family) Primary Care Physician Patient Instructions: Chronic Pain Scripts Ondansetron (Ondansetron Odt) 8 Mg Tab.rapdis 8 MG PO Q6H PRN for NAUSEA/VOMITING, #10 TAB Prov: DONNA IGBSON APRN 03/15/21 DONNA GIBSON APRN March 15, 2021 14:21
[2021-03-15 14:24] LABS: BASOPHILS # (AUTO) 0.1 10^3/uL (0.0-0.1); BASOPHILS % (AUTO) 1 % (0-10); EOSINOPHILS # (AUTO) 0.1 10^3/uL (0.0-0.3); EOSINOPHILS % (AUTO) 1 % (0-10); HEMATOCRIT 34 % (40-54); HEMOGLOBIN 11.1 g/dL (13.3-17.7); LYMPHOCYTES # (AUTO) 0.9 10^3/uL (1.0-4.0); LYMPHOCYTES % (AUTO) 13 % (12-44); MEAN CORPUSCULAR HEMOGLOBIN 30 pg (25-34); MEAN CORPUSCULAR HGB CONC 33 g/dL (32-36); MEAN CORPUSCULAR VOLUME 93 fL (80-99); MEAN PLATELET VOLUME 11.2 fL (9.0-12.2); MONOCYTES # (AUTO) 0.4 10^3/uL (0.0-1.0); MONOCYTES % (AUTO) 5 % (0-12); NEUTROPHILS # (AUTO) 5.6 10^3/uL (1.8-7.8); NEUTROPHILS % (AUTO) 80 % (42-75); PLATELET COUNT 171 10^3/uL (130-400)
[2021-03-15] MEDS ORDERED: morphine IMMEDIATE RELEASE 15 MG TABLET PO SCH (14:30)
[2021-03-15] MEDS ORDERED: NS IV 1000 ML 1,000 ML IV SCH (14:30)
[2021-03-15] MEDS ORDERED: ONDANSETRON 4 MG/2 ML (SDV) Z0FRAN IVP ONE (14:30)
[2021-03-15 15:14] LABS: BILIRUBIN,URINE NEGATIVE (NEGATIVE); CLARITY,URINE CLEAR; COLOR,URINE YELLOW; GLUCOSE, URINE (UA) TRACE (NEGATIVE); KETONES,URINE 1+ (NEGATIVE); LEUKOCYTE ESTERASE ,URINE 1+ (NEGATIVE); NITRITE,URINE NEGATIVE (NEGATIVE); PROTEIN,URINE 2+ (NEGATIVE)
[2021-03-15 15:18] LABS: BACTERIA,URINE TRACE /HPF; SQUAMOUS EPITHELIAL CELL,UR 0-2 /HPF
[2021-03-15 15:44] LABS: ALBUMIN 4.2 GM/DL (3.2-4.5); CHLORIDE 105 MMOL/L (98-107); POTASSIUM 2.8 MMOL/L (3.6-5.0); SODIUM 141 MMOL/L (135-145)
[2021-03-15 15:45] LABS: CALCIUM 9.1 MG/DL (8.5-10.1)
[2021-03-15 15:46] LABS: GLUCOSE 115 MG/DL (70-105); TOTAL PROTEIN 7.5 GM/DL (6.4-8.2)
[2021-03-15 15:47] LABS: CARBON DIOXIDE 25 MMOL/L (21-32)
[2021-03-15 15:48] LABS: BILIRUBIN,TOTAL 0.6 MG/DL (0.1-1.0)
[2021-03-15 15:50] LABS: ALKALINE PHOSPHATASE 79 U/L (40-136); CREATININE SERUM 3.19 MG/DL (0.60-1.30); GFR ESTIMATED 22
[2021-03-15 15:51] LABS: BUN/CREATININE RATIO 6
[2021-03-15 15:53] LABS: ALANINE AMINOTRANSFERASE 12 U/L (0-55)
[2021-03-15] MEDS ORDERED: KCL 10 MEQ TAB (MICRO K) PO ONE (16:00)
[2021-03-15] MEDS ORDERED: ONDA8TAB13 PO (16:02)
[2021-03-15 16:07] LABS: AMPHETAMINE SCREEN, URINE NEGATIVE (NEGATIVE); BARBITURATE SCREEN URINE NEGATIVE (NEGATIVE); BENZODIAZEPINES SCREEN URINE NEGATIVE (NEGATIVE); CANNABINOID SCREEN, URINE NEGATIVE (NEGATIVE); COCAINE SCREEN URINE NEGATIVE (NEGATIVE); METHADONE STAT NEGATIVE (NEGATIVE); METHAMPHETAMINE SCREEN URINE S NEGATIVE (NEGATIVE); OPIATE SCREEN URINE POSITIVE (NEGATIVE); OXYCODONE STAT NEGATIVE (NEGATIVE); PROPOXYPHENE STAT NEGATIVE (NEGATIVE); TRICYCLIC ANTIDEPRESSANTS SCRE NEGATIVE (NEGATIVE)
[2021-03-15 16:15] VITALS: BP 94/64
== END 2021-03-15 16:15 | disposition home or self-care (01) ==
LOC: EDUNIT# 14:02 → ER 14:06
DX: Q61.5 Medullary cystic kidney (principal); G89.29 Other chronic pain; Z88.5 Allergy status to narcotic agent; Z88.6 Allergy status to analgesic agent; Z88.8 Allergy status to other drugs, medicaments and biological substances
CPT/HCPCS: 80053; 80306; 81000; 85025; 87088; 99284; G0480; 36415; 80320

== ENCOUNTER 2021-03-17 19:15 | Emergency (ER) | payer MEDICARE, MEDICAID ==
[~2021-03-17] VITALS: Ht 180 cm; Wt 67.7 kg
[~2021-03-17 19:15] MED LIST changes: +ONDA8TAB13 PO
--- NOTE | 2021-03-17 19:35 | ED Back Pain ---
General Chief Complaint: Back Problems Stated Complaint: RIGHT FLANK PAIN Source of Information: Patient Exam Limitations: No Limitations History of Present Illness Date Seen by Provider: March 17, 2021 Time Seen by Provider: 19:18 Initial Comments Is a 41-year-old male with a history medullary sponge kidney presents to the ER with complaints of right-sided flank pain that started around 4 PM this afternoon. States pain came on suddenly, sharp in nature, constant. Currently rating pain 10/10. States he has a history of kidney stones and this feels like prior episodes. Has a history of chronic kidney pain and takes morphine at home. States he took morphine right his pain started and it seemed to help briefly however states pain has increased severely. Took Atarax at home for nausea reported some improvement. Has some urinary hesitancy, no frequency, no dysuria, no hematuria. No fever, chills, chest pain, shortness of breath. Allergies and Home Medications Allergies Coded Allergies: acetaminophen (Unverified Allergy, Intermediate, 08/15/19) dexamethasone (Unverified Allergy, Intermediate, 08/15/19) fentanyl (Unverified Allergy, Intermediate, 08/15/19) glycopyrrolate (Unverified Allergy, Intermediate, 08/15/19) ketorolac (Unverified Allergy, Intermediate, 08/15/19) metoclopramide (Unverified Allergy, Intermediate, 08/15/19) oxycodone (Unverified Allergy, Intermediate, 08/15/19) prochlorperazine (Unverified Allergy, Intermediate, 08/15/19) promethazine (Unverified Allergy, Intermediate, 08/15/19) suppository route only Home Medications Nitrofurantoin Macrocrystal 100 Mg Capsule, 100 MG PO BID Prescribed by: MARVIN WILLIAMSON on 03/13/211913 Ondansetron 4 Mg Tab.rapdis, 4 MG PO Q6H PRN for NAUSEA/VOMITING Prescribed by: MARVIN WILLIAMSON on 03/13/211913 Ondansetron 8 Mg Tab.rapdis, 8 MG PO Q6H PRN for NAUSEA/VOMITING Prescribed by: DONNA GIBSON on 03/15/21 1602 Patient Home Medication List Home Medication List Reviewed: Yes Review of Systems Constitutional: no symptoms reported EENTM: no symptoms reported Respiratory: no symptoms reported Cardiovascular: no symptoms reported Gastrointestinal: see HPI Genitourinary: see HPI Musculoskeletal: see HPI Skin: no symptoms reported Psychiatric/Neurological: No Symptoms Reported Past Qzzhhgw-Jrqehy-Gqkpze Hx Patient Social History 2nd Hand Smoke Exposure: No Recent Hopitalizations: No Seasonal Allergies Seasonal Allergies: No Past Medical History Surgeries: Yes (3 LITHOTRIPSY ) Respiratory: No Cardiac: No Neurological: No Genitourinary: Yes Kidney Stones, UTI-Chronic Gastrointestinal: No Musculoskeletal: No Endocrine: No HEENT: No Cancer: No Psychosocial: No Integumentary: No Blood Disorders: No Physical Exam Vital Signs Capillary Refill : Height, Weight, BMI Height: '" Weight: lbs. oz. kg; 20.00 BMI Method: General Appearance: No Apparent Distress, WD/WN HEENT: PERRL/EOMI, Normal ENT Inspection, Moist Mucous Membranes Neck: Full Range of Motion, Normal Inspection Cardiovascular: Regular Rate, Rhythm, Normal Peripheral Pulses Respiratory: Lungs Clear, Normal Breath Sounds, No Accessory Muscle Use Gastrointestinal: Normal Bowel Sounds, Non Tender, Soft Back: Normal Inspection, CVA Tenderness (R) Extremity: Normal Inspection, Normal Range of Motion Neurologic/Psychiatric: Alert, Oriented x3, No Motor/Sensory Deficits, Normal Mood/Affect Skin: Normal Color, Warm/Dry Progress/Results/Core Measures Results/Orders Lab Results Laboratory Tests Test 03/17/21 19:02 03/17/21 19:33 Range/Units Urine Color YELLOW Urine Clarity CLEAR Urine pH 8.0 5-9 Urine Specific [place] 1.015 L 1.016-1.022 Urine Protein 2+ H NEGATIVE Urine Glucose (UA) TRACE H NEGATIVE Urine Ketones NEGATIVE NEGATIVE Urine Nitrite NEGATIVE NEGATIVE Urine Bilirubin NEGATIVE NEGATIVE Urine Urobilinogen 0.2 < = 1.0 MG/DL Urine Leukocyte Esterase NEGATIVE NEGATIVE Urine RBC (Auto) 1+ H NEGATIVE Urine RBC NONE /HPF Urine WBC 0-2 /HPF Urine Squamous Epithelial Cells 0-2 /HPF Urine Crystals NONE /LPF Urine Bacteria TRACE /HPF Urine Casts NONE /LPF Urine Mucus NEGATIVE /LPF Urine Culture Indicated NO White Blood Count 6.8 4.3-11.0 10^3/uL Red Blood Count 4.00 L 4.30-5.52 10^6/uL Hemoglobin 12.0 L 13.3-17.7 g/dL Hematocrit 38 L 40-54 % Mean Corpuscular Volume 94 80-99 fL Mean Corpuscular Hemoglobin 30 25-34 pg Mean Corpuscular Hemoglobin Concent 32 32-36 g/dL Red Cell Distribution Width 13.4 10.0-14.5 % Platelet Count 179 130-400 10^3/uL Mean Platelet Volume 11.2 9.0-12.2 fL Immature Granulocyte % (Auto) 0 % Neutrophils (%) (Auto) 77 H 42-75 % Lymphocytes (%) (Auto) 16 12-44 % Monocytes (%) (Auto) 5 0-12 % Eosinophils (%) (Auto) 1 0-10 % Basophils (%) (Auto) 0 0-10 % Neutrophils # (Auto) 5.3 1.8-7.8 10^3/uL Lymphocytes # (Auto) 1.1 1.0-4.0 10^3/uL Monocytes # (Auto) 0.4 0.0-1.0 10^3/uL Eosinophils # (Auto) 0.1 0.0-0.3 10^3/uL Basophils # (Auto) 0.0 0.0-0.1 10^3/uL Immature Granulocyte # (Auto) 0.0 0.0-0.1 10^3/uL Sodium Level 144 135-145 MMOL/L Potassium Level 3.3 L 3.6-5.0 MMOL/L Chloride Level 104 98-107 MMOL/L Carbon Dioxide Level 29 21-32 MMOL/L Anion Gap 11 5-14 MMOL/L Blood Urea Nitrogen 20 H 7-18 MG/DL Creatinine 3.37 H 0.60-1.30 MG/DL Estimat Glomerular Filtration Rate 20 BUN/Creatinine Ratio 6 Glucose Level 116 H 70-105 MG/DL Calcium Level 9.2 8.5-10.1 MG/DL Corrected Calcium 8.9 8.5-10.1 MG/DL Total Bilirubin 0.5 0.1-1.0 MG/DL Aspartate Amino Transf (AST/SGOT) 20 5-34 U/L Alanine Aminotransferase (ALT/SGPT) 14 0-55 U/L Alkaline Phosphatase 85 40-136 U/L Total Protein 8.0 6.4-8.2 GM/DL Albumin 4.4 3.2-4.5 GM/DL My Orders Orders - GENE FUENTES APRN Hydromorphone Injection (Dilaudid Inject (03/17/21 19:45) Ondansetron Injection (Zofran Injectio (03/17/21 19:45) Ct Abd/Pelvis Wo(Kidney Stone) (03/17/21 19:33) Ed Iv/Invasive Line Start (03/17/21 19:33) Cbc With Automated Diff (03/17/21 19:33) Comprehensive Metabolic Panel (03/17/21 19:33) Ns Iv 1000 Ml (Sodium Chloride 0.9%) (03/17/21 19:45) Medications Given in ED Current Medications Medications Dose Ordered Sig/Ashley Route Start Time Stop Time Status Last Admin Dose Admin Hydromorphone HCl 1 mg ONCE ONCE IV 03/17/21 19:45 03/17/21 19:46 DC 03/17/21 19:40 1 MG Ondansetron HCl 4 mg ONCE ONCE IVP 03/17/21 19:45 03/17/21 19:46 DC 03/17/21 19:40 4 MG Sodium Chloride 1,000 ml @ 999 mls/hr Q1H ONCE IV 03/17/21 19:45 03/17/21 20:45 DC 03/17/21 19:44 999 MLS/HR Progress Progress Note : Progress Note Upon arrival patient is extremely tearful and crying, currently rating pain 10/10 in his right flank region. Orders placed for kidney stone work-up as he has h/o of multiple bilateral kidney stones, UA, Normal Saline 1litler, Dilaudid 1 mg IVP and Zofran 4mg IVP for severe pain and nausea. CT abdomen pelvis without shows bilateral renal calculi, no obstruction. Pain reduced 2/10 with Dilaudid reports improvement of nausea. Labs reviewed his BUN and creatinine at his baseline. Discussed calling Friday to follow-up with his slab worker as his appointment is currently scheduled in July. Reviewed discharge POC and he is agreeable with plan. Diagnostic Imaging Diagonstic Imaging: CT Plain Films/CT/US/NM/MRI: abdomen Comments NAME: YUE GIL Guillermo MED REC#: [id number] PT STATUS: REG ER : 1980 PHYSICIAN: GENE FUENTES CLEAN UP WORKER ADMIT DATE: 03/17/21/ER Draft Date of Exam:03/17/21 CT ABD/PELVIS WO(KIDNEY STONE) PROCEDURE: CT urinary tract, rule out kidney stone. TECHNIQUE: Multiple contiguous axial images were obtained through the abdomen and pelvis without the use of intravenous contrast. Auto Exposure Controls were utilized during the CT exam to meet ALARA standards for radiation dose reduction. INDICATION: Right flank pain. Nausea and vomiting. COMPARISON: 03/13/2021. FINDINGS: Included portions of the lung bases are clear. CT abdomen: Moderate air and stool is seen scattered throughout the colon. Small bowel loops are nondistended. Normal appendix is identified. Multiple bilateral nonobstructive calyceal and renal pelvic calculi are again identified, bilaterally. No ureteral calculi are seen on either side. Additionally, there is no hydroureteronephrosis or other evidence of obstruction. Hypodense right renal cyst is again noted. The adrenal glands, spleen, pancreas and liver have an unremarkable noncontrast CT appearance. There is cholelithiasis. No loculated fluid collection, free fluid or free air is seen within the abdomen. No abnormal mesenteric or retroperitoneal adenopathy is seen. Osseous structures show no acute abnormality. CT pelvis: Urinary bladder is unopacified. No calculi are seen within the urinary bladder. There is no loculated fluid collection, free fluid or free air. No abnormal lymph node is identified. Osseous structures show no acute abnormality. IMPRESSION: 1. Bilateral renal calculi. 2. No ureteral calculi, hydronephrosis or other evidence of obstruction. 3. Cholelithiasis. 4. Moderate colonic air and stool. Please correlate for constipation. Dictated on workstation # [id number] Dict: 03/17/212023 Trans: 03/17/212040 [facility] [id number] Interpreted by: ELIZABETH RODAS MD Electronically signed by: Reviewed: Reviewed by Me Departure Impression Primary Impression: Medullary sponge kidney Additional Impressions: Nephrolithiasis Constipation Disposition: 01 HOME, SELF-CARE Condition: Improved Departure-Patient Inst. Decision time for Depature: 20:45 Referrals: SEAN MCGREGOR MD (PCP/Family) Primary Care Physician Patient Instructions: Renal Colic (DC), Constipation, Adult ED Add. Discharge Instructions: Plan: 1. Call your slab worker on Friday for persistent problems. 2. Drink plenty of fluids. Use Miralax daily for constipation. Your Morphine increases your likelihood of developing constipation. 3. Continue Morphine as directed for pain and Atarax as directed for nausea. 4. Return to ER for any new or concerning symptoms. All discharge instructions reviewed with patient and/or family. Voiced understanding. GENE FUENTES CLEAN UP WORKER March 17, 2021 19:35
[2021-03-17 19:43] LABS: BASOPHILS % (AUTO) 0 % (0-10); EOSINOPHILS # (AUTO) 0.1 10^3/uL (0.0-0.3); EOSINOPHILS % (AUTO) 1 % (0-10); HEMATOCRIT 38 % (40-54); LYMPHOCYTES # (AUTO) 1.1 10^3/uL (1.0-4.0); LYMPHOCYTES % (AUTO) 16 % (12-44); MEAN CORPUSCULAR HEMOGLOBIN 30 pg (25-34); MEAN CORPUSCULAR HGB CONC 32 g/dL (32-36); MEAN CORPUSCULAR VOLUME 94 fL (80-99); MEAN PLATELET VOLUME 11.2 fL (9.0-12.2); MONOCYTES # (AUTO) 0.4 10^3/uL (0.0-1.0); MONOCYTES % (AUTO) 5 % (0-12); NEUTROPHILS # (AUTO) 5.3 10^3/uL (1.8-7.8); NEUTROPHILS % (AUTO) 77 % (42-75); PLATELET COUNT 179 10^3/uL (130-400); WHITE BLOOD COUNT 6.8 10^3/uL (4.3-11.0)
[2021-03-17] MEDS ORDERED: HYDROmorphone 2 MG/ML VIAL (DILAUDID) IV ONE (19:45)
[2021-03-17] MEDS ORDERED: NS IV 1000 ML 1,000 ML IV ONE (19:45)
[2021-03-17] MEDS ORDERED: ONDANSETRON 4 MG/2 ML (SDV) Z0FRAN IVP ONE (19:45)
[2021-03-17 20:03] LABS: ALBUMIN 4.4 GM/DL (3.2-4.5); BILIRUBIN,TOTAL 0.5 MG/DL (0.1-1.0); CALCIUM 9.2 MG/DL (8.5-10.1); CREATININE SERUM 3.37 MG/DL (0.60-1.30); POTASSIUM 3.3 MMOL/L (3.6-5.0)
[2021-03-17 20:15] LABS: BILIRUBIN,URINE NEGATIVE (NEGATIVE); CLARITY,URINE CLEAR; COLOR,URINE YELLOW; GLUCOSE, URINE (UA) TRACE (NEGATIVE); KETONES,URINE NEGATIVE (NEGATIVE); LEUKOCYTE ESTERASE ,URINE NEGATIVE (NEGATIVE); NITRITE,URINE NEGATIVE (NEGATIVE); PROTEIN,URINE 2+ (NEGATIVE)
[2021-03-17 20:24] LABS: BACTERIA,URINE TRACE /HPF; SQUAMOUS EPITHELIAL CELL,UR 0-2 /HPF; WBC,URINE 0-2 /HPF
--- NOTE | 2021-03-17 20:42 | Diagnostic Imaging Report ---
PROCEDURE: CT urinary tract, rule out kidney stone. TECHNIQUE: Multiple contiguous axial images were obtained through the abdomen and pelvis without the use of intravenous contrast. Auto Exposure Controls were utilized during the CT exam to meet ALARA standards for radiation dose reduction. INDICATION: Right flank pain. Nausea and vomiting. COMPARISON: 03/13/2021. FINDINGS: Included portions of the lung bases are clear. CT abdomen: Moderate air and stool is seen scattered throughout the colon. Small bowel loops are nondistended. Normal appendix is identified. Multiple bilateral nonobstructive calyceal and renal pelvic calculi are again identified, bilaterally. No ureteral calculi are seen on either side. Additionally, there is no hydroureteronephrosis or other evidence of obstruction. Hypodense right renal cyst is again noted. The adrenal glands, spleen, pancreas and liver have an unremarkable noncontrast CT appearance. There is cholelithiasis. No loculated fluid collection, free fluid or free air is seen within the abdomen. No abnormal mesenteric or retroperitoneal adenopathy is seen. Osseous structures show no acute abnormality. CT pelvis: Urinary bladder is unopacified. No calculi are seen within the urinary bladder. There is no loculated fluid collection, free fluid or free air. No abnormal lymph node is identified. Osseous structures show no acute abnormality. IMPRESSION: 1. Bilateral renal calculi. 2. No ureteral calculi, hydronephrosis or other evidence of obstruction. 3. Cholelithiasis. 4. Moderate colonic air and stool. Please correlate for constipation. Dictated by: Dictated on workstation # [id number]
[2021-03-17 21:08] VITALS: BP 106/63
== END 2021-03-17 21:11 | disposition home or self-care (01) ==
LOC: EDUNIT# 19:15 → ER 19:19
DX: Q61.5 Medullary cystic kidney (principal); N20.0 Calculus of kidney; K59.00 Constipation, unspecified; N39.0 Urinary tract infection, site not specified; Z88.6 Allergy status to analgesic agent; Z88.5 Allergy status to narcotic agent; Z88.8 Allergy status to other drugs, medicaments and biological substances; Z79.899 Other long term (current) drug therapy
CPT/HCPCS: 36415; 74176; 80053; 81000; 85025

== ENCOUNTER 2021-03-20 16:51 | Emergency (ER) | payer MEDICARE, MEDICAID ==
[~2021-03-20] VITALS: Ht 180.3 cm; Wt 67.7 kg
[2021-03-20] MEDS ORDERED: ONDANSETRON 4 MG (ZOFRAN) ORAL DISSOLVE TAB PO ONE (17:00)
--- NOTE | 2021-03-20 17:02 | ED General ---
General Stated Complaint: RIGHT SIDE PAIN Source of Information: Patient Exam Limitations: No Limitations History of Present Illness Date Seen by Provider: March 20, 2021 Time Seen by Provider: 17:01 Initial Comments To ER by private vehicle with recurrent right flank pain. He was seen here recently. States that morphine and Dilaudid are the most helpful things for his pain. He has medullary sponge kidney for which she is follows with nephrology in [place]. He is on oral morphine at home but it is not quite controlling his pain. Timing/Duration: 1-2 Days Severity: Moderate Associated Systoms: Denies Symptoms Allergies and Home Medications Allergies Coded Allergies: acetaminophen (Unverified Allergy, Intermediate, 08/15/19) dexamethasone (Unverified Allergy, Intermediate, 08/15/19) fentanyl (Unverified Allergy, Intermediate, 08/15/19) glycopyrrolate (Unverified Allergy, Intermediate, 08/15/19) ketorolac (Unverified Allergy, Intermediate, 08/15/19) metoclopramide (Unverified Allergy, Intermediate, 08/15/19) oxycodone (Unverified Allergy, Intermediate, 08/15/19) prochlorperazine (Unverified Allergy, Intermediate, 08/15/19) promethazine (Unverified Allergy, Intermediate, 08/15/19) suppository route only Home Medications Nitrofurantoin Macrocrystal 100 Mg Capsule, 100 MG PO BID Prescribed by: MARVIN WILLIAMSON on 03/13/211913 Ondansetron 4 Mg Tab.rapdis, 4 MG PO Q6H PRN for NAUSEA/VOMITING Prescribed by: MARVIN WILLIAMSON on 03/13/211913 Ondansetron 8 Mg Tab.rapdis, 8 MG PO Q6H PRN for NAUSEA/VOMITING Prescribed by: DONNA GIBSON on 03/15/21 1602 Patient Home Medication List Home Medication List Reviewed: Yes Review of Systems Review of Systems Constitutional: see HPI EENTM: see HPI Respiratory: no symptoms reported Cardiovascular: no symptoms reported Genitourinary: no symptoms reported Musculoskeletal: no symptoms reported Skin: no symptoms reported Psychiatric/Neurological: No Symptoms Reported Hematologic/Lymphatic: No Symptoms Reported Past Pxjoxjj-Nizizt-Rugndo Hx Patient Social History 2nd Hand Smoke Exposure: No Recent Hopitalizations: No Seasonal Allergies Seasonal Allergies: No Past Medical History Surgeries: Yes (3 LITHOTRIPSY ) Respiratory: No Cardiac: No Neurological: No Genitourinary: Yes Kidney Stones, UTI-Chronic Gastrointestinal: No Musculoskeletal: No Endocrine: No HEENT: No Cancer: No Psychosocial: No Integumentary: No Blood Disorders: No Physical Exam Vital Signs Capillary Refill : Height, Weight, BMI Height: '" Weight: lbs. oz. kg; 20.00 BMI Method: General Appearance: No Apparent Distress, WD/WN (Crying) Eyes: Bilateral Eye Normal Inspection, Bilateral Eye PERRL, Bilateral Eye EOMI Neck: Full Range of Motion, Normal Inspection Respiratory: No Accessory Muscle Use, No Respiratory Distress Gastrointestinal: Normal Bowel Sounds, Non Tender, Soft Extremity: Normal Capillary Refill, Normal Inspection Neurologic/Psychiatric: Alert, Oriented x3 Skin: Normal Color, Warm/Dry Progress/Results/Core Measures Suspected Sepsis SIRS Temperature: Pulse: Respiratory Rate: Blood Pressure / Mean: Results/Orders Vital Signs/I&O Capillary Refill : Departure Impression Primary Impression: Chronic pain Additional Impression: Medullary sponge kidney Disposition: 01 HOME, SELF-CARE Condition: Stable Departure-Patient Inst. Decision time for Depature: 17:02 Referrals: SEAN MCGREGOR MD (PCP/Family) Primary Care Physician Patient Instructions: CHRONIC PAIN DONNA GIBSON MANAGER LANDSCAPE March 20, 2021 17:02
[2021-03-20 17:25] LABS: POTASSIUM 3.8 MMOL/L (3.6-5.0)
[2021-03-20 17:26] LABS: CALCIUM 9.1 MG/DL (8.5-10.1)
[2021-03-20 17:31] LABS: CREATININE SERUM 3.39 MG/DL (0.60-1.30)
[2021-03-20 18:02] LABS: BASOPHILS % (AUTO) 1 % (0-10); EOSINOPHILS # (AUTO) 0.1 10^3/uL (0.0-0.3); EOSINOPHILS % (AUTO) 1 % (0-10); HEMATOCRIT 35 % (40-54); HEMOGLOBIN 11.4 g/dL (13.3-17.7); LYMPHOCYTES # (AUTO) 1.2 10^3/uL (1.0-4.0); LYMPHOCYTES % (AUTO) 19 % (12-44); MEAN CORPUSCULAR HEMOGLOBIN 30 pg (25-34); MEAN CORPUSCULAR HGB CONC 32 g/dL (32-36); MEAN CORPUSCULAR VOLUME 93 fL (80-99); MEAN PLATELET VOLUME 11.1 fL (9.0-12.2); MONOCYTES # (AUTO) 0.3 10^3/uL (0.0-1.0); MONOCYTES % (AUTO) 4 % (0-12); NEUTROPHILS # (AUTO) 4.8 10^3/uL (1.8-7.8); NEUTROPHILS % (AUTO) 75 % (42-75); PLATELET COUNT 175 10^3/uL (130-400); WHITE BLOOD COUNT 6.4 10^3/uL (4.3-11.0)
[2021-03-20 18:21] VITALS: BP 118/69
== END 2021-03-20 18:25 | disposition home or self-care (01) ==
LOC: EDUNIT# 16:51 → ER 16:54
DX: G89.29 Other chronic pain (principal); Q61.5 Medullary cystic kidney; Z88.6 Allergy status to analgesic agent; Z88.5 Allergy status to narcotic agent; Z88.8 Allergy status to other drugs, medicaments and biological substances
CPT/HCPCS: 36415; 80048; 85025

== ENCOUNTER 2021-03-23 16:20 | Emergency (ER) | payer MEDICARE, MEDICAID ==
[~2021-03-23] VITALS: Ht 180 cm; Wt 67.6 kg
--- NOTE | 2021-03-23 16:29 | ED General ---
General Stated Complaint: R SIDE FLANK PAIN Source of Information: Patient Exam Limitations: No Limitations History of Present Illness Date Seen by Provider: March 23, 2021 Time Seen by Provider: 16:27 Initial Comments To ER with recurrence ongoing right-sided flank pain uncontrolled by his chronic morphine. He is allergic to everything except morphine and Dilaudid for pain control. He states that his primary care provider is not comfortable prescribing higher doses of morphine. Timing/Duration: 1-2 Days Severity: Moderate Allergies and Home Medications Allergies Coded Allergies: acetaminophen (Unverified Allergy, Intermediate, 08/15/19) dexamethasone (Unverified Allergy, Intermediate, 08/15/19) fentanyl (Unverified Allergy, Intermediate, 08/15/19) glycopyrrolate (Unverified Allergy, Intermediate, 08/15/19) ketorolac (Unverified Allergy, Intermediate, 08/15/19) metoclopramide (Unverified Allergy, Intermediate, 08/15/19) oxycodone (Unverified Allergy, Intermediate, 08/15/19) prochlorperazine (Unverified Allergy, Intermediate, 08/15/19) promethazine (Unverified Allergy, Intermediate, 08/15/19) suppository route only Home Medications Nitrofurantoin Macrocrystal 100 Mg Capsule, 100 MG PO BID Prescribed by: MARVIN WILLIASMON on 03/13/211913 Ondansetron 4 Mg Tab.rapdis, 4 MG PO Q6H PRN for NAUSEA/VOMITING Prescribed by: MARVIN WILLIAMSON on 03/13/211913 Ondansetron 8 Mg Tab.rapdis, 8 MG PO Q6H PRN for NAUSEA/VOMITING Prescribed by: DONNA GIBSON on 03/15/21 1602 Patient Home Medication List Home Medication List Reviewed: Yes Review of Systems Review of Systems Constitutional: see HPI EENTM: see HPI Respiratory: no symptoms reported Cardiovascular: no symptoms reported Genitourinary: no symptoms reported Musculoskeletal: no symptoms reported Skin: no symptoms reported Psychiatric/Neurological: No Symptoms Reported Hematologic/Lymphatic: No Symptoms Reported Past Czlsqts-Stvtnm-Ulvtcn Hx Patient Social History 2nd Hand Smoke Exposure: No Recent Hopitalizations: No Seasonal Allergies Seasonal Allergies: No Past Medical History Surgeries: Yes (3 LITHOTRIPSY ) Respiratory: No Cardiac: No Neurological: No Genitourinary: Yes Kidney Stones, UTI-Chronic Gastrointestinal: No Musculoskeletal: No Endocrine: No HEENT: No Cancer: No Psychosocial: No Integumentary: No Blood Disorders: No Physical Exam Vital Signs Vital Signs - First Documented 03/23/21 16:25 Temp 36.6 Pulse 102 Resp 18 B/P (MAP) 104/70 (81) Pulse Ox 98 O2 Delivery Room Air Capillary Refill : Height, Weight, BMI Height: '" Weight: lbs. oz. kg; 20.00 BMI Method: General Appearance: No Apparent Distress, WD/WN, Other (Appears older than stated age, crying) Eyes: Bilateral Eye Normal Inspection, Bilateral Eye PERRL, Bilateral Eye EOMI Respiratory: No Accessory Muscle Use, No Respiratory Distress Gastrointestinal: Normal Bowel Sounds, Non Tender, Soft Neurologic/Psychiatric: Alert, Oriented x3 Skin: Normal Color, Warm/Dry Progress/Results/Core Measures Suspected Sepsis SIRS Temperature: Pulse: Respiratory Rate: Laboratory Tests 03/23/21 16:41: White Blood Count 6.6 Blood Pressure / Mean: Laboratory Tests 03/23/21 16:41: Creatinine 3.51H, Platelet Count 170 Results/Orders Lab Results Laboratory Tests Test 03/23/21 16:41 03/23/21 17:20 Range/Units White Blood Count 6.6 4.3-11.0 10^3/uL Red Blood Count 3.43 L 4.30-5.52 10^6/uL Hemoglobin 10.4 L 13.3-17.7 g/dL Hematocrit 32 L 40-54 % Mean Corpuscular Volume 94 80-99 fL Mean Corpuscular Hemoglobin 30 25-34 pg Mean Corpuscular Hemoglobin Concent 32 32-36 g/dL Red Cell Distribution Width 13.4 10.0-14.5 % Platelet Count 170 130-400 10^3/uL Mean Platelet Volume 10.9 9.0-12.2 fL Immature Granulocyte % (Auto) 0 % Neutrophils (%) (Auto) 73 42-75 % Lymphocytes (%) (Auto) 19 12-44 % Monocytes (%) (Auto) 5 0-12 % Eosinophils (%) (Auto) 1 0-10 % Basophils (%) (Auto) 1 0-10 % Neutrophils # (Auto) 4.9 1.8-7.8 10^3/uL Lymphocytes # (Auto) 1.3 1.0-4.0 10^3/uL Monocytes # (Auto) 0.4 0.0-1.0 10^3/uL Eosinophils # (Auto) 0.1 0.0-0.3 10^3/uL Basophils # (Auto) 0.1 0.0-0.1 10^3/uL Immature Granulocyte # (Auto) 0.0 0.0-0.1 10^3/uL Sodium Level 141 135-145 MMOL/L Potassium Level 3.5 L 3.6-5.0 MMOL/L Chloride Level 104 98-107 MMOL/L Carbon Dioxide Level 27 21-32 MMOL/L Anion Gap 10 5-14 MMOL/L Blood Urea Nitrogen 26 H 7-18 MG/DL Creatinine 3.51 H 0.60-1.30 MG/DL Estimat Glomerular Filtration Rate 19 BUN/Creatinine Ratio 7 Glucose Level 121 H 70-105 MG/DL Calcium Level 9.0 8.5-10.1 MG/DL Urine Color YELLOW Urine Clarity CLEAR Urine pH 7.5 5-9 Urine Specific [place] 1.020 1.016-1.022 Urine Protein 2+ H NEGATIVE Urine Glucose (UA) TRACE H NEGATIVE Urine Ketones NEGATIVE NEGATIVE Urine Nitrite NEGATIVE NEGATIVE Urine Bilirubin NEGATIVE NEGATIVE Urine Urobilinogen 0.2 < = 1.0 MG/DL Urine Leukocyte Esterase NEGATIVE NEGATIVE Urine RBC (Auto) 1+ H NEGATIVE Urine RBC NONE /HPF Urine WBC RARE /HPF Urine Squamous Epithelial Cells RARE /HPF Urine Crystals NONE /LPF Urine Bacteria NEGATIVE /HPF Urine Casts NONE /LPF Urine Mucus NEGATIVE /LPF Urine Culture Indicated NO My Orders Orders - DONNA GIBSON [employer] Cbc With Automated Diff (03/23/21 16:34) Basic Metabolic Panel (03/23/21 16:34) Ondansetron Oral Dissolve Tab (Zofran (03/23/21 16:45) Ua Culture If Indicated (03/23/21 16:38) Lidocaine 2% Pf 10 Ml (Xylocaine 2% Pf) (03/23/21 16:45) Ns Iv 500 Ml (Sodium Chloride 0.9%) (03/23/21 17:58) Medications Given in ED Current Medications Medications Dose Ordered Sig/Ashley Route Start Time Stop Time Status Last Admin Dose Admin Lidocaine HCl 5 ml ONCE ONCE INJ 03/23/21 16:45 03/23/21 17:35 DC 03/23/21 16:55 5 ML Ondansetron HCl 4 mg ONCE ONCE PO 03/23/21 16:45 03/23/21 17:35 DC 03/23/21 16:41 4 MG Vital Signs/I&O 03/23/21 16:25 Temp 36.6 Pulse 102 Resp 18 B/P (MAP) 104/70 (81) Pulse Ox 98 O2 Delivery Room Air Capillary Refill : Departure Communication (Admissions) Family Conversation 182-he reports that the IV lidocaine did help to "take the pressure off. He is no longer crying. He has had no rash or adverse effect and certainly no sergio rgic reaction to this IV lidocaine. We will discharged home with his mother who is at the bedside. 0-we will try IV lidocaine at a dose of 1.5 mg/kg which is 100 mg of preservative-free 2% lidocaine diluted in a flush administered over 10 minutes which has been shown to be safe and helpful in renal colic. I do have some concerns about opiate addiction given his high doses of oral morphine that are allegedly not controlling his pain. I spoke with his primary care provider's office in [place] who reports that they have not seen him since December but that visit was also for right flank pain follow-up from the ER. He follows with Dr. Duarte from nephrology in [place] and [facility] in [place] for "possible transplant". Impression Primary Impression: Chronic pain Additional Impression: Medullary sponge kidney Disposition: HOME, SELF-CARE Condition: Improved Departure-Patient Inst. Referrals: SEAN MCGREGOR MD (PCP/Family) Primary Care Physician DONNA GIBSON APRN March 23, 2021 16:28
[2021-03-23] MEDS ORDERED: ONDANSETRON 4 MG (ZOFRAN) ORAL DISSOLVE TAB PO ONE (16:45)
[2021-03-23] MEDS ORDERED: LIDOCAINE PF 2% 10 ML (XYLOCAINE) AMP INJ ONE (16:45)
[2021-03-23 16:53] LABS: BASOPHILS # (AUTO) 0.1 10^3/uL (0.0-0.1); BASOPHILS % (AUTO) 1 % (0-10); EOSINOPHILS # (AUTO) 0.1 10^3/uL (0.0-0.3); EOSINOPHILS % (AUTO) 1 % (0-10); HEMATOCRIT 32 % (40-54); HEMOGLOBIN 10.4 g/dL (13.3-17.7); LYMPHOCYTES # (AUTO) 1.3 10^3/uL (1.0-4.0); LYMPHOCYTES % (AUTO) 19 % (12-44); MEAN CORPUSCULAR HEMOGLOBIN 30 pg (25-34); MEAN CORPUSCULAR HGB CONC 32 g/dL (32-36); MEAN CORPUSCULAR VOLUME 94 fL (80-99); MEAN PLATELET VOLUME 10.9 fL (9.0-12.2); MONOCYTES # (AUTO) 0.4 10^3/uL (0.0-1.0); MONOCYTES % (AUTO) 5 % (0-12); NEUTROPHILS # (AUTO) 4.9 10^3/uL (1.8-7.8); NEUTROPHILS % (AUTO) 73 % (42-75); PLATELET COUNT 170 10^3/uL (130-400); WHITE BLOOD COUNT 6.6 10^3/uL (4.3-11.0)
[2021-03-23 17:02] LABS: POTASSIUM 3.5 MMOL/L (3.6-5.0)
[2021-03-23 17:08] LABS: CREATININE SERUM 3.51 MG/DL (0.60-1.30)
[2021-03-23 17:28] LABS: BILIRUBIN,URINE NEGATIVE (NEGATIVE); CLARITY,URINE CLEAR; COLOR,URINE YELLOW; GLUCOSE, URINE (UA) TRACE (NEGATIVE); KETONES,URINE NEGATIVE (NEGATIVE); LEUKOCYTE ESTERASE ,URINE NEGATIVE (NEGATIVE); NITRITE,URINE NEGATIVE (NEGATIVE); PH,URINE 7.5 (5-9); PROTEIN,URINE 2+ (NEGATIVE)
[2021-03-23 17:37] LABS: BACTERIA,URINE NEGATIVE /HPF; SQUAMOUS EPITHELIAL CELL,UR RARE /HPF; WBC,URINE RARE /HPF
[2021-03-23] MEDS ORDERED: NS IV 500 ML 500 ML ONE (17:58)
[2021-03-23 18:28] VITALS: BP 100/64
[2021-03-23] MEDS ORDERED: NS IV 500 ML 500 ML IV SCH (18:30)
== END 2021-03-23 18:27 | disposition home or self-care (01) ==
LOC: EDUNIT# 16:20 → ER 16:21
DX: G89.29 Other chronic pain (principal); Q61.5 Medullary cystic kidney; Z88.6 Allergy status to analgesic agent; Z88.5 Allergy status to narcotic agent; Z88.8 Allergy status to other drugs, medicaments and biological substances
CPT/HCPCS: 36415; 80048; 81000; 85025

== ENCOUNTER 2021-03-23 22:02 | Emergency (ER) | payer MEDICARE, MEDICAID ==
[~2021-03-23] VITALS: Ht 180.3 cm; Wt 67.5 kg
[2021-03-23] MEDS ORDERED: LACTATED RINGERS 1,000 ML IV ONE (23:45)
[2021-03-23] MEDS ORDERED: ONDANSETRON 4 MG/2 ML (SDV) Z0FRAN IVP ONE (23:45)
[2021-03-24 00:11] LABS: BASOPHILS % (AUTO) 1 % (0-10); EOSINOPHILS # (AUTO) 0.1 10^3/uL (0.0-0.3); EOSINOPHILS % (AUTO) 1 % (0-10); HEMATOCRIT 32 % (40-54); HEMOGLOBIN 10.6 g/dL (13.3-17.7); LYMPHOCYTES # (AUTO) 1.2 10^3/uL (1.0-4.0); LYMPHOCYTES % (AUTO) 17 % (12-44); MEAN CORPUSCULAR HEMOGLOBIN 30 pg (25-34); MEAN CORPUSCULAR HGB CONC 33 g/dL (32-36); MEAN CORPUSCULAR VOLUME 93 fL (80-99); MEAN PLATELET VOLUME 11.8 fL (9.0-12.2); MONOCYTES # (AUTO) 0.3 10^3/uL (0.0-1.0); MONOCYTES % (AUTO) 5 % (0-12); NEUTROPHILS # (AUTO) 5.2 10^3/uL (1.8-7.8); NEUTROPHILS % (AUTO) 76 % (42-75); PLATELET COUNT 201 10^3/uL (130-400); WHITE BLOOD COUNT 6.8 10^3/uL (4.3-11.0)
[2021-03-24 00:26] LABS: ALBUMIN 3.9 GM/DL (3.2-4.5); POTASSIUM 3.3 MMOL/L (3.6-5.0)
[2021-03-24 00:29] LABS: TOTAL PROTEIN 7.3 GM/DL (6.4-8.2)
[2021-03-24 00:30] LABS: BILIRUBIN,TOTAL 0.4 MG/DL (0.1-1.0)
[2021-03-24 00:32] LABS: CREATININE SERUM 3.52 MG/DL (0.60-1.30)
[2021-03-24 00:58] LABS: BILIRUBIN,URINE NEGATIVE (NEGATIVE); CLARITY,URINE CLEAR; COLOR,URINE YELLOW; GLUCOSE, URINE (UA) TRACE (NEGATIVE); KETONES,URINE NEGATIVE (NEGATIVE); LEUKOCYTE ESTERASE ,URINE NEGATIVE (NEGATIVE); NITRITE,URINE NEGATIVE (NEGATIVE); PH,URINE 7.5 (5-9); PROTEIN,URINE 1+ (NEGATIVE)
[2021-03-24 01:13] LABS: BACTERIA,URINE NEGATIVE /HPF; RBC,URINE 0-2 /HPF; SQUAMOUS EPITHELIAL CELL,UR 0-2 /HPF
[2021-03-24 01:14] LABS: AMPHETAMINE SCREEN, URINE NEGATIVE (NEGATIVE); BARBITURATE SCREEN URINE NEGATIVE (NEGATIVE); BENZODIAZEPINES SCREEN URINE NEGATIVE (NEGATIVE); CANNABINOID SCREEN, URINE NEGATIVE (NEGATIVE); COCAINE SCREEN URINE NEGATIVE (NEGATIVE); METHADONE STAT NEGATIVE (NEGATIVE); METHAMPHETAMINE SCREEN URINE S NEGATIVE (NEGATIVE); OPIATE SCREEN URINE POSITIVE (NEGATIVE); OXYCODONE STAT NEGATIVE (NEGATIVE); PROPOXYPHENE STAT NEGATIVE (NEGATIVE); TRICYCLIC ANTIDEPRESSANTS SCRE NEGATIVE (NEGATIVE)
--- NOTE | 2021-03-24 01:15 | ED Back Pain ---
General Chief Complaint: Back Problems Stated Complaint: R FLANK PAIN Nursing Triage Note: PATIENT STATES THAT HE WAS SEEN HERE IN THIS ED THIS AFTERNOON FOR RIGHT FLANK PAIN. HE STATES HE WAS GIVEN LIDOCAINE AND IT "HAS NOT HELPED". Nursing Sepsis Screen: No Definite Risk Source of Information: Patient, Old Records History of Present Illness Initial Comments PT ARRIVES VIA POV FROM HOME WITH MOTHER C/O RIGHT FLANK PAIN --CHRONIC PROBLEM STATES TODAY, IT STARTED AT 1440 TODAY. PT TAKES MORPHINE IR 15 MG TWICE A DAY, AND MORPHINE ER 15 MG TWICE A DAY. LAST DOSE WAS AT 8 PM TONIGHT. PER MED RECONCILIATION, LAST FILLED RX'S ON 03/08/21 PT WAS HERE A FEW HOURS AGO, DISMISSED AROUND 1830 TONIGHT, FOR THIS EXACT SAME COMPLAINT. PT WAS GIVEN LIDOCAINE IV. STATES IT HELPED A LITTLE, BUT ONLY LASTED AN HOUR AND NOW IS BAD IT WAS PT HAS BEEN TO THIS ER 6 TIMES SINCE 03/12/21 FOR THIS SAME COMPLAINT. PT STATES HE HAS MEDULLARY SPONGE KIDNEY, HAS KIDNEY STONES, AND UTI'S DENIES ANY PAIN OR URINARY SYMPTOMS NO FEVER NO NAUSEA/VOMITING NO PAIN IN ABDOMEN PT STATES HE SEES [facility] "DR Hart" IN [place]--LAST VISIT WAS 03/12/21--SEES HIM EVERY 6 MONTHS DOES NOT HAVE A UROLOGIST SEES DR. MCGREGOR AT [facility] FOR MORPHINE PRESCRIPTIONS Other Comments PCP: DR. MCGREGOR AT [facility]--NEXT APPOINTMENT 03/27/21 [facility]: DR. Henry" IN [place] Allergies and Home Medications Allergies Coded Allergies: acetaminophen (Unverified Allergy, Intermediate, 08/15/19) dexamethasone (Unverified Allergy, Intermediate, 08/15/19) fentanyl (Unverified Allergy, Intermediate, 08/15/19) glycopyrrolate (Unverified Allergy, Intermediate, 08/15/19) ketorolac (Unverified Allergy, Intermediate, 08/15/19) metoclopramide (Unverified Allergy, Intermediate, 08/15/19) oxycodone (Unverified Allergy, Intermediate, 08/15/19) prochlorperazine (Unverified Allergy, Intermediate, 08/15/19) promethazine (Unverified Allergy, Intermediate, 08/15/19) suppository route only Home Medications Nitrofurantoin Macrocrystal 100 Mg Capsule, 100 MG PO BID Prescribed by: MARVIN WILLIAMSON on 03/13/211913 Ondansetron 4 Mg Tab.rapdis, 4 MG PO Q6H PRN for NAUSEA/VOMITING Prescribed by: MARVIN WILLIAMSON on 03/13/211913 Ondansetron 8 Mg Tab.rapdis, 8 MG PO Q6H PRN for NAUSEA/VOMITING Prescribed by: DONNA GIBSON on 03/15/21 1602 Review of Systems Constitutional: no symptoms reported Respiratory: no symptoms reported Cardiovascular: no symptoms reported Gastrointestinal: no symptoms reported; No abdominal pain, No nausea, No vomiting Genitourinary: see HPI; No decreased output, No dysuria, No frequency, No hematuria, No hesitancy, No pain; other (RIGHT FLANK PAIN ) Musculoskeletal: see HPI, back pain Skin: no symptoms reported Psychiatric/Neurological: No Symptoms Reported Past Dbwbpid-Jwnteq-Wxqysp Hx Past Med/Social Hx: Reviewed and Corrections made Patient Social History Alcohol Use: Denies Use Drug of Choice: DENIES Smoking Status: Never a Smoker 2nd Hand Smoke Exposure: No Recent Infectious Disease Expo: No Recent Hopitalizations: No Seasonal Allergies Seasonal Allergies: No Past Medical History Surgeries: Yes ( LITHOTRIPSY X 3) Renal Respiratory: No Cardiac: No Neurological: No Genitourinary: Yes (MEDULLARY SPONGE KIDNEY) Kidney Stones, UTI-Chronic Gastrointestinal: No Musculoskeletal: Yes (CHRONIC FLANK PAIN ) Endocrine: No HEENT: No Cancer: No Psychosocial: No Integumentary: No Blood Disorders: No Physical Exam Vital Signs Vital Signs - First Documented 03/23/21 23:20 Temp 36.9 Pulse 116 Resp 22 B/P (MAP) 116/86 (96) O2 Delivery Room Air Capillary Refill : Less Than 3 Seconds Height, Weight, BMI Height: '" Weight: lbs. oz. kg; 20.00 BMI Method: General Appearance: Thin, Other (VERY DRAMATIC, CRYING LOUDLY) Cardiovascular: Regular Rate, Rhythm, No Murmur Respiratory: Normal Breath Sounds Gastrointestinal: Non Tender, Soft Back: No Vertebral Tenderness, CVA Tenderness (R) Extremity: Normal Inspection Neurologic/Psychiatric: Alert, Oriented x3, No Motor/Sensory Deficits Skin: Normal Color, Warm/Dry; No Rash Progress/Results/Core Measures Results/Orders Lab Results Laboratory Tests Test 03/24/21 00:04 03/24/21 00:50 Range/Units White Blood Count 6.8 4.3-11.0 10^3/uL Red Blood Count 3.50 L 4.30-5.52 10^6/uL Hemoglobin 10.6 L 13.3-17.7 g/dL Hematocrit 32 L 40-54 % Mean Corpuscular Volume 93 80-99 fL Mean Corpuscular Hemoglobin 30 25-34 pg Mean Corpuscular Hemoglobin Concent 33 32-36 g/dL Red Cell Distribution Width 13.5 10.0-14.5 % Platelet Count 201 130-400 10^3/uL Mean Platelet Volume 11.8 9.0-12.2 fL Immature Granulocyte % (Auto) 0 % Neutrophils (%) (Auto) 76 H 42-75 % Lymphocytes (%) (Auto) 17 12-44 % Monocytes (%) (Auto) 5 0-12 % Eosinophils (%) (Auto) 1 0-10 % Basophils (%) (Auto) 1 0-10 % Neutrophils # (Auto) 5.2 1.8-7.8 10^3/uL Lymphocytes # (Auto) 1.2 1.0-4.0 10^3/uL Monocytes # (Auto) 0.3 0.0-1.0 10^3/uL Eosinophils # (Auto) 0.1 0.0-0.3 10^3/uL Basophils # (Auto) 0.0 0.0-0.1 10^3/uL Immature Granulocyte # (Auto) 0.0 0.0-0.1 10^3/uL Sodium Level 142 135-145 MMOL/L Potassium Level 3.3 L 3.6-5.0 MMOL/L Chloride Level 104 98-107 MMOL/L Carbon Dioxide Level 28 21-32 MMOL/L Anion Gap 10 5-14 MMOL/L Blood Urea Nitrogen 26 H 7-18 MG/DL Creatinine 3.52 H 0.60-1.30 MG/DL Estimat Glomerular Filtration Rate 19 BUN/Creatinine Ratio 7 Glucose Level 99 70-105 MG/DL Calcium Level 9.0 8.5-10.1 MG/DL Corrected Calcium 9.1 8.5-10.1 MG/DL Total Bilirubin 0.4 0.1-1.0 MG/DL Aspartate Amino Transf (AST/SGOT) 20 5-34 U/L Alanine Aminotransferase (ALT/SGPT) 15 0-55 U/L Alkaline Phosphatase 70 40-136 U/L Total Protein 7.3 6.4-8.2 GM/DL Albumin 3.9 3.2-4.5 GM/DL Urine Color YELLOW Urine Clarity CLEAR Urine pH 7.5 5-9 Urine Specific [place] 1.015 L 1.016-1.022 Urine Protein 1+ H NEGATIVE Urine Glucose (UA) TRACE H NEGATIVE Urine Ketones NEGATIVE NEGATIVE Urine Nitrite NEGATIVE NEGATIVE Urine Bilirubin NEGATIVE NEGATIVE Urine Urobilinogen 0.2 < = 1.0 MG/DL Urine Leukocyte Esterase NEGATIVE NEGATIVE Urine RBC (Auto) 1+ H NEGATIVE Urine RBC 0-2 /HPF Urine WBC NONE /HPF Urine Squamous Epithelial Cells 0-2 /HPF Urine Crystals NONE /LPF Urine Bacteria NEGATIVE /HPF Urine Casts NONE /LPF Urine Mucus SMALL H /LPF Urine Culture Indicated NO Urine Opiates Screen POSITIVE H NEGATIVE Urine Oxycodone Screen NEGATIVE NEGATIVE Urine Methadone Screen NEGATIVE NEGATIVE Urine Propoxyphene Screen NEGATIVE NEGATIVE Urine Barbiturates Screen NEGATIVE NEGATIVE Ur Tricyclic Antidepressants Screen NEGATIVE NEGATIVE Urine Phencyclidine Screen NEGATIVE NEGATIVE Urine Amphetamines Screen NEGATIVE NEGATIVE Urine Methamphetamines Screen NEGATIVE NEGATIVE Urine Benzodiazepines Screen NEGATIVE NEGATIVE Urine Cocaine Screen NEGATIVE NEGATIVE Urine Cannabinoids Screen NEGATIVE NEGATIVE My Orders Orders - JIE WATSON DO Ed Iv/Invasive Line Start (03/23/21 23:36) Cbc With Automated Diff (03/23/21 23:36) Comprehensive Metabolic Panel (03/23/21 23:36) Drug Screen Stat (Urine) (03/23/21 23:36) Ua Culture If Indicated (03/23/21 23:36) Ed Iv/Invasive Line Start (03/23/21 23:36) Lactated Ringers (Lr 1000 Ml Iv Solution (03/23/21 23:45) Ondansetron Injection (Zofran Injectio (03/23/21 23:45) Ct Abd/Pelvis Wo(Kidney Stone) (03/24/21 00:01) Abdomen/Kub 1view (03/24/21 00:01) Medications Given in ED Current Medications Medications Dose Ordered Sig/Ashley Route Start Time Stop Time Status Last Admin Dose Admin Lactated Ringer's 1,000 ml @ 0 mls/hr Q0M ONCE IV 03/23/21 23:45 03/23/21 23:46 DC 03/24/21 00:09 999 MLS/HR Ondansetron HCl 4 mg ONCE ONCE IVP 03/23/21 23:45 03/23/21 23:46 DC 03/24/21 00:09 4 MG Vital Signs/I&O 03/23/21 23:20 Temp 36.9 Pulse 116 Resp 22 B/P (MAP) 116/86 (96) O2 Delivery Room Air Blood Pressure Mean: 96 Departure Impression Primary Impression: Chronic right flank pain Additional Impressions: Chronic renal failure Opiate dependence Disposition: HOME, SELF-CARE Condition: Stable Departure-Patient Inst. Referrals: SEAN MCGREGOR MD (PCP/Family) Primary Care Physician Patient Instructions: Chronic Pain (DC) Add. Discharge Instructions: TAKE YOUR MEDICATIONS PRESCRIBED FOLLOW UP WITH YOUR DR ON FRIDAY FOR FURTHER CARE All discharge instructions reviewed with patient and/or family. Voiced understanding. JIE WATSON DO March 24, 2021 01:15
[2021-03-24 03:09] VITALS: BP 114/75
--- NOTE | 2021-03-24 06:47 | Diagnostic Imaging Report ---
PROCEDURE: CT urinary tract, rule out kidney stone. TECHNIQUE: Multiple contiguous axial images were obtained through the abdomen and pelvis without the use of intravenous contrast. Auto Exposure Controls were utilized during the CT exam to meet ALARA standards for radiation dose reduction. INDICATION: Right-sided abdominal pain. Comparison is made with prior CT from 03/17/2021. The lung bases are clear. The liver is unremarkable. Gallbladder contains small stones. There is no biliary duct dilatation. The pancreas and spleen are unremarkable. No adrenal mass is detected. Innumerable calyceal and renal pelvic calculi are noted bilaterally. Low-density lesion in the lower pole right kidney is unchanged most consistent with a cyst. This measures 3.2 cm in size. No definite ureteral or bladder calculi are seen. There is no hydronephrosis. Aorta is nonaneurysmal. The small and large bowel loops are normal caliber. There is moderate stool in the colon. There is no free fluid or fluid collection. Prostate is unremarkable. IMPRESSION: 1. Bilateral nonobstructing nephrolithiasis, similar to prior exam. No ureteral or bladder calculi are seen. There is no evidence of hydronephrosis. 2. Cholelithiasis. 3. No acute feature in the abdomen or pelvis is identified. Dictated by: Dictated on workstation # [id number]
--- NOTE | 2021-03-24 06:52 | Diagnostic Imaging Report ---
HISTORY: Bilateral renal calcifications TECHNIQUE: Frontal view of the abdomen COMPARISON: CT from the same day FINDINGS: Extensive calcifications are seen throughout the kidneys bilaterally. No definite calcifications are seen along the expected course of the ureters or upper pelvis. There is a small to moderate amount of stool. No distended loops of bowel are seen. There is no large collection of free air. IMPRESSION: 1. Extensive calcifications throughout the kidneys bilaterally. No calcification is seen along the expected course of the ureters. Dictated by: Dictated on workstation # [id number]
== END 2021-03-24 03:12 | disposition home or self-care (01) ==
LOC: EDUNIT# 22:02 → ER 22:04
DX: G89.29 Other chronic pain (principal); R10.31 Right lower quadrant pain; N18.9 Chronic kidney disease, unspecified; F11.20 Opioid dependence, uncomplicated; Q61.5 Medullary cystic kidney; Z87.442 Personal history of urinary calculi; Z87.440 Personal history of urinary (tract) infections; Z88.5 Allergy status to narcotic agent; Z88.6 Allergy status to analgesic agent; Z88.8 Allergy status to other drugs, medicaments and biological substances
CPT/HCPCS: 36415; 74018; 74176; 80053; 80306; 81000; 85025

== ENCOUNTER 2021-05-22 18:17 | Emergency (ER) | payer MEDICARE, MEDICAID ==
[~2021-05-22] VITALS: Ht 180.3 cm; Wt 65.0 kg
[2021-05-22 18:50] LABS: BILIRUBIN,URINE NEGATIVE (NEGATIVE); CLARITY,URINE CLEAR; COLOR,URINE YELLOW; GLUCOSE, URINE (UA) TRACE (NEGATIVE); KETONES,URINE NEGATIVE (NEGATIVE); LEUKOCYTE ESTERASE ,URINE NEGATIVE (NEGATIVE); NITRITE,URINE NEGATIVE (NEGATIVE); PROTEIN,URINE 1+ (NEGATIVE)
[2021-05-22 19:16] LABS: AMORPHOUS SEDIMENT,UR RARE AMOR URATES /LPF; BACTERIA,URINE TRACE /HPF; RBC,URINE RARE /HPF; WBC,URINE 0-2 /HPF
--- NOTE | 2021-05-22 19:26 | Diagnostic Imaging Report ---
INDICATION: Right-sided pelvic pain and nausea. TIME OF EXAM: 7:23 PM COMPARISON is made with prior radiograph from 03/24/2021. Numerous bilateral renal calculi are again noted and similar to prior exam. No definite calculi along the course of the ureters are seen. Bowel gas pattern is nonobstructed. IMPRESSION: Bilateral nephrolithiasis. No definite calculi within the ureters are identified. Dictated by: Dictated on workstation # [id number]
[2021-05-22] MEDS ORDERED: morphine INJ 10 MG/ML 1ML (SYR OR VIAL) IVP STA (19:30)
--- NOTE | 2021-05-22 19:32 | ED GU-Male ---
General Chief Complaint: Abdominal/GI Problems Stated Complaint: KIDNEY PAIN Nursing Triage Note: AMB TO ED [facility] OF KIDNEY STONES. REPORTS STONES CARO IN BOTH KIDNEYS . APX 12AM TODAY ONSET OF PAIN IN R LOWER BACK WITH RADIATION TO R GROIN. Source: patient Exam Limitations: no limitations History of Present Illness Date Seen by Provider: May 22, 2021 Time Seen by Provider: 19:13 Initial Comments This is a 41-year-old male presents to the ER with complaints of right flank pain x4 days. This is a history of medullary sponge kidney and renal colic. He was evaluated and treated at [facility] for the same symptoms on Friday. States that he has intermittent episodes and is usually controlled with Zofran and his home morphine 15 mg extended release. States he took his morphine around 1600 this evening however his symptoms have not improved. He is out of Zofran and took Benadryl with some relief of nausea. Denies fever, chills, difficulty urinating, hesitancy. This pain is same as prior episodes. He is allergic to multiple medications states that Dilaudid is usually what helps with this pain. He has been given lidocaine in the past but reports this did not help at all. Allergies and Home Medications Allergies Coded Allergies: acetaminophen (Unverified Allergy, Intermediate, 08/15/19) dexamethasone (Unverified Allergy, Intermediate, 08/15/19) fentanyl (Unverified Allergy, Intermediate, 08/15/19) glycopyrrolate (Unverified Allergy, Intermediate, 08/15/19) ketorolac (Unverified Allergy, Intermediate, 08/15/19) metoclopramide (Unverified Allergy, Intermediate, 08/15/19) oxycodone (Unverified Allergy, Intermediate, 08/15/19) prochlorperazine (Unverified Allergy, Intermediate, 08/15/19) promethazine (Unverified Allergy, Intermediate, 08/15/19) suppository route only Home Medications Nitrofurantoin Macrocrystal 100 Mg Capsule, 100 MG PO BID Prescribed by: MARVIN WILLIAMSON on 03/13/211913 Ondansetron 4 Mg Tab.rapdis, 4 MG PO Q6H PRN for NAUSEA/VOMITING Prescribed by: MARVIN WILLIAMSON on 03/13/211913 Ondansetron 8 Mg Tab.rapdis, 8 MG PO Q6H PRN for NAUSEA/VOMITING Prescribed by: DONNA GIBSON on 03/15/21 1600 Patient Home Medication List Home Medication List Reviewed: Yes Review of Systems Review of Systems Constitutional: no symptoms reported EENTM: no symptoms reported Respiratory: no symptoms reported Cardiovascular: no symptoms reported Gastrointestinal: see HPI Genitourinary: see HPI Musculoskeletal: no symptoms reported Skin: no symptoms reported Psychiatric/Neurological: No Symptoms Reported Endocrine: No Symptoms Reported Hematologic/Lymphatic: No Symptoms Reported Past Xlhwult-Dndolo-Azcjno Hx Patient Social History Tobacco Use?: No Substance use?: No Alcohol Use?: No Immunizations Up To Date Influenza Vaccine Up-to-Date: Yes; Up-to-Date Seasonal Allergies Seasonal Allergies: No Past Medical History Surgery/Hospitalization HX: GALLBLADDER Surgeries: Yes ( LITHOTRIPSY X 3) Renal Respiratory: No Cardiac: No Neurological: No Genitourinary: Yes (MEDULLARY SPONGE KIDNEY) Kidney Stones, UTI-Chronic Gastrointestinal: No Musculoskeletal: Yes (CHRONIC FLANK PAIN ) Endocrine: No HEENT: No Cancer: No Psychosocial: No Integumentary: No Blood Disorders: No Physical Exam Vital Signs Vital Signs - First Documented 05/22/21 18:37 Pulse 100 Resp 18 Pulse Ox 100 O2 Delivery Room Air Capillary Refill : Less Than 3 Seconds Height, Weight, BMI Height: '" Weight: lbs. oz. kg; 19.00 BMI Method: General Appearance: WD/WN, no apparent distress HEENT: normal ENT inspection, pharynx normal Neck: full range of motion, normal inspection Cardiovascular: regular rate, rhythm, no murmur Respiratory: lungs clear, normal breath sounds Gastrointestinal: normal bowel sounds, non tender, soft Back: normal inspection, CVA tenderness (R) Neurologic/Psychiatric: no motor/sensory deficits, alert, normal mood/affect, oriented x 3 Skin: normal color, warm/dry Progress/Results/Core Measures Suspected Sepsis SIRS Temperature: Pulse: 100 Respiratory Rate: 18 Blood Pressure / Mean: Results/Orders Lab Results Laboratory Tests Test 05/22/21 18:39 Range/Units Urine Color YELLOW Urine Clarity CLEAR Urine pH 6.0 5-9 Urine Specific [place] 1.015 L 1.016-1.022 Urine Protein 1+ H NEGATIVE Urine Glucose (UA) TRACE H NEGATIVE Urine Ketones NEGATIVE NEGATIVE Urine Nitrite NEGATIVE NEGATIVE Urine Bilirubin NEGATIVE NEGATIVE Urine Urobilinogen 0.2 < = 1.0 MG/DL Urine Leukocyte Esterase NEGATIVE NEGATIVE Urine RBC (Auto) 1+ H NEGATIVE Urine RBC RARE /HPF Urine WBC 0-2 /HPF Urine Crystals PRESENT H /LPF Urine Amorphous Sediment RARE LUCINDA URATES H /LPF Urine Bacteria TRACE /HPF Urine Casts NONE /LPF Urine Mucus SMALL H /LPF Urine Culture Indicated NO My Orders Orders - GENE FUENTES SHAKE TABLE OPERATOR Ua Culture If Indicated (05/22/21 18:27) Ed Iv/Invasive Line Start (05/22/21 19:09) Cbc With Automated Diff (05/22/21 19:09) Comprehensive Metabolic Panel (05/22/21 19:09) Abdomen/Kub 1view (05/22/21 19:09) Morphine Injection (Morphine Injection (05/22/21 19:30) Ondansetron Injection (Zofran Injectio (05/22/21 19:45) Vital Signs/I&O 05/22/21 18:37 Pulse 100 Resp 18 B/P (MAP) Pulse Ox 100 O2 Delivery Room Air Capillary Refill : Less Than 3 Seconds Diagnostic Imaging Diagonstic Imaging: Xray Plain Films/CT/US/NM/MRI: abdomen Comments [facility] [place] [place] NAME: YUE GIL [facility] REC#: [id number] PT STATUS: REG ER : 1980 PHYSICIAN: GENE FUENTES SHAKE TABLE OPERATOR ADMIT DATE: 05/22/21/ER Signed Date of Exam:05/22/21 ABDOMEN/KUB 1VIEW INDICATION: Right-sided pelvic pain and nausea. TIME OF EXAM: 7:23 PM COMPARISON is made with prior radiograph from 03/24/2021. Numerous bilateral renal calculi are again noted and similar to prior exam. No definite calculi along the course of the ureters are seen. Bowel gas pattern is nonobstructed. IMPRESSION: Bilateral nephrolithiasis. No definite calculi within the ureters are identified. Dictated by: Dictated on workstation # [id number] Dict: 05/22/211922 Trans: 05/22/211925 [facility] [id number] Interpreted by: KELLEY SHARPE MD Electronically signed by: KELLEY SHARPE MD 05/22/211925 Reviewed: Reviewed by Me Departure Impression Primary Impression: Medullary sponge kidney Additional Impression: Nephrolithiasis Departure-Patient Inst. Referrals: SEAN MCGREGOR MD (PCP) Primary Care Physician Patient Instructions: Renal Colic (DC) Add. Discharge Instructions: 1. Continue home medications. 2. Follow up with your tool and production planner for persistent symptoms. 3. Drink plenty of fluids. 4. Return for any new, concerning, or worsening symptoms. All discharge instructions reviewed with patient and/or family. Voiced understanding. GENE FUENTES SHAKE TABLE OPERATOR May 22, 2021 19:32
[2021-05-22] MEDS ORDERED: ONDANSETRON 4 MG/2 ML (SDV) Z0FRAN IVP ONE (19:45)
[2021-05-22 20:14] LABS: BASOPHILS # (AUTO) 0.1 10^3/uL (0.0-0.1); BASOPHILS % (AUTO) 1 % (0-10); EOSINOPHILS % (AUTO) 0 % (0-10); HEMATOCRIT 35 % (40-54); HEMOGLOBIN 11.3 g/dL (13.3-17.7); LYMPHOCYTES # (AUTO) 1.6 10^3/uL (1.0-4.0); LYMPHOCYTES % (AUTO) 23 % (12-44); MEAN CORPUSCULAR HEMOGLOBIN 30 pg (25-34); MEAN CORPUSCULAR HGB CONC 33 g/dL (32-36); MEAN CORPUSCULAR VOLUME 92 fL (80-99); MEAN PLATELET VOLUME 10.4 fL (9.0-12.2); MONOCYTES # (AUTO) 0.4 10^3/uL (0.0-1.0); MONOCYTES % (AUTO) 5 % (0-12); NEUTROPHILS # (AUTO) 5.1 10^3/uL (1.8-7.8); NEUTROPHILS % (AUTO) 71 % (42-75); PLATELET COUNT 203 10^3/uL (130-400); WHITE BLOOD COUNT 7.2 10^3/uL (4.3-11.0)
[2021-05-22 20:39] LABS: ALBUMIN 4.5 GM/DL (3.2-4.5); POTASSIUM 3.2 MMOL/L (3.6-5.0)
[2021-05-22 20:40] LABS: CALCIUM 9.8 MG/DL (8.5-10.1)
[2021-05-22 20:42] LABS: TOTAL PROTEIN 8.2 GM/DL (6.4-8.2)
[2021-05-22 20:44] LABS: BILIRUBIN,TOTAL 0.6 MG/DL (0.1-1.0)
[2021-05-22 20:45] LABS: CREATININE SERUM 3.8 MG/DL (0.60-1.30)
[2021-05-22] MEDS ORDERED: morphine INJ 10 MG/ML 1ML (SYR OR VIAL) IV STA (21:16)
[2021-05-22 21:30] VITALS: BP 108/73
== END 2021-05-22 21:30 | disposition home or self-care (01) ==
LOC: EDUNIT# 18:17 → ER 18:19
DX: Q61.5 Medullary cystic kidney (principal); N20.0 Calculus of kidney; Z88.5 Allergy status to narcotic agent
CPT/HCPCS: 36415; 74018; 80053; 81000; 85025

== ENCOUNTER 2021-05-29 20:26 | Emergency (ER) | payer MEDICARE, MEDICAID ==
[2021-05-29 21:13] LABS: BILIRUBIN,URINE NEGATIVE (NEGATIVE); CLARITY,URINE CLEAR; COLOR,URINE YELLOW; GLUCOSE, URINE (UA) TRACE (NEGATIVE); KETONES,URINE NEGATIVE (NEGATIVE); LEUKOCYTE ESTERASE ,URINE NEGATIVE (NEGATIVE); NITRITE,URINE NEGATIVE (NEGATIVE); PROTEIN,URINE 1+ (NEGATIVE)
[2021-05-29 21:14] LABS: BASOPHILS # (AUTO) 0.1 10^3/uL (0.0-0.1); BASOPHILS % (AUTO) 1 % (0-10); EOSINOPHILS # (AUTO) 0.2 10^3/uL (0.0-0.3); EOSINOPHILS % (AUTO) 3 % (0-10); HEMATOCRIT 35 % (40-54); HEMOGLOBIN 11.4 g/dL (13.3-17.7); LYMPHOCYTES % (AUTO) 27 % (12-44); MEAN CORPUSCULAR HEMOGLOBIN 30 pg (25-34); MEAN CORPUSCULAR HGB CONC 32 g/dL (32-36); MEAN CORPUSCULAR VOLUME 94 fL (80-99); MONOCYTES # (AUTO) 0.4 10^3/uL (0.0-1.0); MONOCYTES % (AUTO) 5 % (0-12); NEUTROPHILS # (AUTO) 4.6 10^3/uL (1.8-7.8); NEUTROPHILS % (AUTO) 64 % (42-75); PLATELET COUNT 208 10^3/uL (130-400); WHITE BLOOD COUNT 7.2 10^3/uL (4.3-11.0)
[2021-05-29 21:17] LABS: ALBUMIN 4.1 GM/DL (3.2-4.5); POTASSIUM 3.8 MMOL/L (3.6-5.0)
[2021-05-29 21:18] LABS: CALCIUM 9.4 MG/DL (8.5-10.1)
[2021-05-29 21:20] LABS: TOTAL PROTEIN 7.8 GM/DL (6.4-8.2)
[2021-05-29 21:21] LABS: BILIRUBIN,TOTAL 0.4 MG/DL (0.1-1.0)
[2021-05-29 21:24] LABS: CREATININE SERUM 3.63 MG/DL (0.60-1.30)
[2021-05-29] MEDS ORDERED: diphenhydrAMINE 50 MG/ML INJ (BENADRYL) IVP ONE (21:30)
[2021-05-29] MEDS ORDERED: ONDANSETRON 4 MG/2 ML (SDV) Z0FRAN IVP ONE (21:30)
[2021-05-29] MEDS ORDERED: morphine INJ 10 MG/ML 1ML (SYR OR VIAL) IVP STA (21:30)
[2021-05-29] MEDS ORDERED: NS IV 1000 ML 1,000 ML IV SCH (21:30)
[2021-05-29 21:42] LABS: BACTERIA,URINE TRACE /HPF; RBC,URINE 0-2 /HPF; WBC,URINE 0-2 /HPF
--- NOTE | 2021-05-29 22:03 | Diagnostic Imaging Report ---
PROCEDURE: CT urinary tract, rule out kidney stone. TECHNIQUE: Multiple contiguous axial images were obtained through the abdomen and pelvis without the use of intravenous contrast. Auto Exposure Controls were utilized during the CT exam to meet ALARA standards for radiation dose reduction. INDICATION: Left flank pain, kidney stones. COMPARISON: 03/24/2021. FINDINGS: The lung bases are clear. The gallbladder is surgically absent. Again seen are multiple bilateral renal calculi. There is no hydronephrosis or hydroureter. No obstructive stones are seen. The urinary bladder is mildly distended. The prostate is not enlarged. The gallbladder is surgically absent. Additional solid organs, vascular structures and bowel are unremarkable. There is no free air or free fluid. There is some slight constipation in the colon. Osseous structures are stable. IMPRESSION: Nonobstructive bilateral renal calculi. No significant change. There is no hydronephrosis, inflammation or obstruction. Slight distention of the urinary bladder. Surgically absent gallbladder. No free fluid identified. Slight constipation. Dictated by: Dictated on workstation # [id number]
--- NOTE | 2021-05-29 22:32 | ED Abdominal Pain ---
General Chief Complaint: Abdominal/GI Problems Stated Complaint: L FLANK PAIN Source of Information: Patient Exam Limitations: No Limitations History of Present Illness Date Seen by Provider: May 29, 2021 Time Seen by Provider: 21:02 Initial Comments This 41-year-old gentleman with history of kidney stones and medullary sponge kidney presents to the emergency room with complaints of relatively sudden onset of fairly severe left flank pain that started around 17:00. It is accompanied by mild nausea. He has not noted any urinary changes, fever, or abdominal pain. His demurrage clerk is Dr. Duarte. He tried taking morphine 3.5 mg at home and that did not alleviate his pain. Allergies and Home Medications Allergies Coded Allergies: acetaminophen (Unverified Allergy, Intermediate, 08/15/19) dexamethasone (Unverified Allergy, Intermediate, 08/15/19) fentanyl (Unverified Allergy, Intermediate, 08/15/19) glycopyrrolate (Unverified Allergy, Intermediate, 08/15/19) ketorolac (Unverified Allergy, Intermediate, 08/15/19) metoclopramide (Unverified Allergy, Intermediate, 08/15/19) oxycodone (Unverified Allergy, Intermediate, 08/15/19) prochlorperazine (Unverified Allergy, Intermediate, 08/15/19) promethazine (Unverified Allergy, Intermediate, 08/15/19) suppository route only Home Medications Nitrofurantoin Macrocrystal 100 Mg Capsule, 100 MG PO BID Prescribed by: MARVIN WILLIAMSON on 03/13/211913 Ondansetron 4 Mg Tab.rapdis, 4 MG PO Q6H PRN for NAUSEA/VOMITING Prescribed by: MARVIN WILLIAMSON on 03/13/211913 Ondansetron 8 Mg Tab.rapdis, 8 MG PO Q6H PRN for NAUSEA/VOMITING Prescribed by: DONNA GIBSON on 03/15/21 1602 Patient Home Medication List Home Medication List Reviewed: Yes Review of Systems Review of Systems Constitutional: no symptoms reported EENTM: No Symptoms Reported Respiratory: No Symptoms Reported Cardiovascular: No Symptoms Reported Gastrointestinal: See HPI Genitourinary: See HPI Musculoskeletal: no symptoms reported Skin: no symptoms reported Psychiatric/Neurological: No Symptoms Reported Endocrine: No Symptoms Reported Hematologic/Lymphatic: No Symptoms Reported Past Qsvwxgz-Lblszr-Nrvjhk Hx Seasonal Allergies Seasonal Allergies: No Past Medical History Surgery/Hospitalization HX: GALLBLADDER Surgeries: Yes ( LITHOTRIPSY X 3) Renal Respiratory: No Cardiac: No Neurological: No Genitourinary: Yes (MEDULLARY SPONGE KIDNEY) Kidney Stones, UTI-Chronic Gastrointestinal: No Musculoskeletal: Yes (CHRONIC FLANK PAIN ) Endocrine: No HEENT: No Cancer: No Psychosocial: No Integumentary: No Blood Disorders: No Physical Exam Vital Signs Capillary Refill : Height/Weight/BMI Height: '" Weight: lbs. oz. kg; 19.00 BMI Method: General Appearance: WD/WN, moderate distress HEENT: PERRL/EOMI, normal ENT inspection Neck: normal inspection Respiratory: lungs clear, normal breath sounds, no respiratory distress Cardiovascular: regular rate, rhythm, no edema, no murmur Gastrointestinal: normal bowel sounds, non tender, soft Extremities: normal inspection, no pedal edema Back: normal inspection, no CVA tenderness, no vertebral tenderness Neurologic/Psychiatric: egg crater II-XII nml as tested, no motor/sensory deficits, alert, normal mood/affect, oriented x 3 Skin: normal color, warm/dry Progress/Results/Core Measures Results/Orders Lab Results Laboratory Tests Test 05/29/21 20:54 05/29/21 21:06 Range/Units White Blood Count 7.2 4.3-11.0 10^3/uL Red Blood Count 3.75 L 4.30-5.52 10^6/uL Hemoglobin 11.4 L 13.3-17.7 g/dL Hematocrit 35 L 40-54 % Mean Corpuscular Volume 94 80-99 fL Mean Corpuscular Hemoglobin 30 25-34 pg Mean Corpuscular Hemoglobin Concent 32 32-36 g/dL Red Cell Distribution Width 13.9 10.0-14.5 % Platelet Count 208 130-400 10^3/uL Mean Platelet Volume 11.0 9.0-12.2 fL Immature Granulocyte % (Auto) 0 % Neutrophils (%) (Auto) 64 42-75 % Lymphocytes (%) (Auto) 27 12-44 % Monocytes (%) (Auto) 5 0-12 % Eosinophils (%) (Auto) 3 0-10 % Basophils (%) (Auto) 1 0-10 % Neutrophils # (Auto) 4.6 1.8-7.8 10^3/uL Lymphocytes # (Auto) 2.0 1.0-4.0 10^3/uL Monocytes # (Auto) 0.4 0.0-1.0 10^3/uL Eosinophils # (Auto) 0.2 0.0-0.3 10^3/uL Basophils # (Auto) 0.1 0.0-0.1 10^3/uL Immature Granulocyte # (Auto) 0.0 0.0-0.1 10^3/uL Sodium Level 143 135-145 MMOL/L Potassium Level 3.8 3.6-5.0 MMOL/L Chloride Level 104 98-107 MMOL/L Carbon Dioxide Level 25 21-32 MMOL/L Anion Gap 14 5-14 MMOL/L Blood Urea Nitrogen 49 H 7-18 MG/DL Creatinine 3.63 H 0.60-1.30 MG/DL Estimat Glomerular Filtration Rate 19 BUN/Creatinine Ratio 13 Glucose Level 114 H 70-105 MG/DL Calcium Level 9.4 8.5-10.1 MG/DL Corrected Calcium 9.3 8.5-10.1 MG/DL Total Bilirubin 0.4 0.1-1.0 MG/DL Aspartate Amino Transf (AST/SGOT) 21 5-34 U/L Alanine Aminotransferase (ALT/SGPT) 20 0-55 U/L Alkaline Phosphatase 70 40-136 U/L C-Reactive Protein High Sensitivity 0.11 0.00-0.50 MG/DL Total Protein 7.8 6.4-8.2 GM/DL Albumin 4.1 3.2-4.5 GM/DL Lipase 106 H 8-78 U/L Urine Color YELLOW Urine Clarity CLEAR Urine pH 7.0 5-9 Urine Specific [place] 1.015 L 1.016-1.022 Urine Protein 1+ H NEGATIVE Urine Glucose (UA) TRACE H NEGATIVE Urine Ketones NEGATIVE NEGATIVE Urine Nitrite NEGATIVE NEGATIVE Urine Bilirubin NEGATIVE NEGATIVE Urine Urobilinogen 0.2 < = 1.0 MG/DL Urine Leukocyte Esterase NEGATIVE NEGATIVE Urine RBC (Auto) 1+ H NEGATIVE Urine RBC 0-2 /HPF Urine WBC 0-2 /HPF Urine Crystals NONE /LPF Urine Bacteria TRACE /HPF Urine Casts NONE /LPF Urine Mucus NEGATIVE /LPF Urine Culture Indicated NO My Orders Orders - JUANA LOW MD Ua Culture If Indicated (05/29/21 21:02) Cbc With Automated Diff (05/29/21 21:04) Comprehensive Metabolic Panel (05/29/21 21:04) Hs C Reactive Protein (05/29/21 21:04) Lipase (05/29/21 21:04) Morphine Injection (Morphine Injection (05/29/21 21:30) Diphenhydramine Injection (Benadryl Inje (05/29/21 21:30) Ondansetron Injection (Zofran Injectio (05/29/21 21:30) Ed Iv/Invasive Line Start (05/29/21 21:30) Ns Iv 1000 Ml (Sodium Chloride 0.9%) (05/29/21 21:30) Ct Abd/Pelvis Wo(Kidney Stone) (05/29/21 21:31) Medications Given in ED Current Medications Medications Dose Ordered Sig/Ashley Route Start Time Stop Time Status Last Admin Dose Admin Diphenhydramine HCl 25 mg ONCE ONCE IVP 05/29/21 21:30 05/29/21 21:32 DC 05/29/21 21:42 25 MG Ondansetron HCl 8 mg ONCE ONCE IVP 05/29/21 21:30 05/29/21 21:32 DC 05/29/21 21:44 8 MG Progress Progress Note : Progress Note Patient was given Zofran, morphine, and IV fluids. Because of his history of ureteral stones in the fairly sudden severe onset of pain, CT kidney stone search was obtained. Numerous stones within the kidneys were noted but no ureteral stones or evidence of hydronephrosis was identified. No other abnormalities to explain his pain were observed on CT. Patient was feeling much better and was discharged home. Source of his pain was suspected to be a muscle spasm or other musculoskeletal pain in the left lower back. He was offered a muscle relaxer which she declined. Diagnostic Imaging Diagonstic Imaging: CT Plain Films/CT/US/NM/MRI: abdomen, pelvis Comments CT abdomen and pelvis viewed by me and report reviewed. See report below: NAME: YUE GIL [facility] REC#: [id number] PT STATUS: REG ER : 1980 PHYSICIAN: JUANA LOW MD ADMIT DATE: 05/29/21/ER Draft Date of Exam:05/29/21 CT ABD/PELVIS WO(KIDNEY STONE) PROCEDURE: CT urinary tract, rule out kidney stone. TECHNIQUE: Multiple contiguous axial images were obtained through the abdomen and pelvis without the use of intravenous contrast. Auto Exposure Controls were utilized during the CT exam to meet ALARA standards for radiation dose reduction. INDICATION: Left flank pain, kidney stones. COMPARISON: 03/24/2021. FINDINGS: The lung bases are clear. The gallbladder is surgically absent. Again seen are multiple bilateral renal calculi. There is no hydronephrosis or hydroureter. No obstructive stones are seen. The urinary bladder is mildly distended. The prostate is not enlarged. The gallbladder is surgically absent. Additional solid organs, vascular structures and bowel are unremarkable. There is no free air or free fluid. There is some slight constipation in the colon. Osseous structures are stable. IMPRESSION: Nonobstructive bilateral renal calculi. No significant change. There is no hydronephrosis, inflammation or obstruction. Slight distention of the urinary bladder. Surgically absent gallbladder. No free fluid identified. Slight constipation. Dictated on workstation # [id number] Dict: 05/29/212155 Trans: 05/29/21 220 [facility] [id number] Interpreted by: LATONIA HARPER Departure Impression Primary Impression: Left flank pain Additional Impressions: Medullary sponge kidney Renal stones Disposition: 01 HOME, SELF-CARE Condition: Improved Departure-Patient Inst. Decision time for Depature: 22:30 Referrals: SEAN MCGREGOR MD (PCP/Family) Primary Care Physician Patient Instructions: Kidney Stones in Adults Add. Discharge Instructions: The cause of your pain is uncertain but could be related to a recently passed kidney stone or musculoskeletal pain/muscle spasm. Use your morphine as previously prescribed for pain control. Gentle heat and gentle stretching on your lower back may also be helpful. Follow-up with your primary care provider and/or demurrage clerk by phone tomorrow for further follow-up instructions. Drink plenty of clear liquids. Adhere to primarily a clear liquid diet until morning, and then gradually advance your diet with small quantities of bland food. Call with questions or concerns. Return to care if you have worsening symptoms. All discharge instructions reviewed with patient and/or family. Voiced und erstanding. Copy Copies To 1: GLENIS DAVALOS JOSHUA T MD May 29, 2021 22:32
[2021-05-29 22:50] VITALS: BP 106/55
== END 2021-05-29 22:48 | disposition home or self-care (01) ==
LOC: EDUNIT# 20:26 → ER 20:28
DX: Q61.5 Medullary cystic kidney (principal); N20.0 Calculus of kidney; Z88.5 Allergy status to narcotic agent
CPT/HCPCS: 36415; 74176; 80053; 81000; 83690; 85025; 86141

== ENCOUNTER 2021-05-30 21:13 | Emergency (ER) | payer MEDICARE, MEDICAID ==
[~2021-05-30] VITALS: Ht 180 cm; Wt 64.8 kg
[2021-05-30] MEDS ORDERED: morphine INJ 10 MG/ML 1ML (SYR OR VIAL) IVP STA (22:08)
[2021-05-30 22:09] LABS: BILIRUBIN,URINE NEGATIVE (NEGATIVE); CLARITY,URINE CLEAR; COLOR,URINE YELLOW; GLUCOSE, URINE (UA) TRACE (NEGATIVE); KETONES,URINE NEGATIVE (NEGATIVE); LEUKOCYTE ESTERASE ,URINE NEGATIVE (NEGATIVE); NITRITE,URINE NEGATIVE (NEGATIVE); PROTEIN,URINE 1+ (NEGATIVE)
[2021-05-30] MEDS ORDERED: diphenhydrAMINE 50 MG/ML INJ (BENADRYL) IVP ONE (22:15)
--- NOTE | 2021-05-30 22:32 | ED Abdominal Pain ---
General Chief Complaint: Abdominal/GI Problems Stated Complaint: FLANK PAIN Nursing Triage Note: Pt reports LUQ pain and L flank pain. Pt was seen in this ED yesterday; pancreatic enzymes were elevated. Pt reports pain is not resolving. Pt took 2mg morphine @ 1900 and 8mg zofran @ 1830 w/ no relief. Source of Information: Patient Exam Limitations: No Limitations History of Present Illness Date Seen by Provider: May 30, 2021 Allergies and Home Medications Allergies Coded Allergies: acetaminophen (Unverified Allergy, Intermediate, 08/15/19) dexamethasone (Unverified Allergy, Intermediate, 08/15/19) fentanyl (Unverified Allergy, Intermediate, 08/15/19) glycopyrrolate (Unverified Allergy, Intermediate, 08/15/19) ketorolac (Unverified Allergy, Intermediate, 08/15/19) metoclopramide (Unverified Allergy, Intermediate, 08/15/19) oxycodone (Unverified Allergy, Intermediate, 08/15/19) prochlorperazine (Unverified Allergy, Intermediate, 08/15/19) promethazine (Unverified Allergy, Intermediate, 08/15/19) suppository route only Home Medications Nitrofurantoin Macrocrystal 100 Mg Capsule, 100 MG PO BID Prescribed by: MARVIN WILLIAMSON on 03/13/211913 Ondansetron 4 Mg Tab.rapdis, 4 MG PO Q6H PRN for NAUSEA/VOMITING Prescribed by: MARVIN WILLIAMSON on 03/13/211913 Ondansetron 8 Mg Tab.rapdis, 8 MG PO Q6H PRN for NAUSEA/VOMITING Prescribed by: DONNA GIBSON on 03/15/21 1602 Past Qvuovuq-Clgibi-Amzpjk Hx Patient Social History Tobacco Use?: No Smoking Status: Never a Smoker Substance use?: No Alcohol Use?: No Pt feels they are or have been: No Seasonal Allergies Seasonal Allergies: No Past Medical History Surgery/Hospitalization HX: MEDULLARY KIDNEY DX Surgeries: Yes ( LITHOTRIPSY X 3) Renal Respiratory: No Cardiac: No Neurological: No Genitourinary: Yes (MEDULLARY SPONGE KIDNEY) Kidney Stones, UTI-Chronic Gastrointestinal: No Musculoskeletal: Yes (CHRONIC FLANK PAIN ) Endocrine: No HEENT: No Cancer: No Psychosocial: No Integumentary: No Blood Disorders: No Physical Exam Vital Signs Vital Signs - First Documented 05/30/21 21:40 Temp 37.2 Pulse 95 Resp 18 B/P (MAP) 107/64 (78) O2 Delivery Room Air Capillary Refill : Less Than 3 Seconds Height/Weight/BMI Height: '" Weight: lbs. oz. kg; 20.00 BMI Method: Progress/Results/Core Measures Results/Orders Lab Results Laboratory Tests Test 05/30/21 22:04 Range/Units Urine Color YELLOW Urine Clarity CLEAR Urine pH 7.0 5-9 Urine Specific [place] 1.010 L 1.016-1.022 Urine Protein 1+ H NEGATIVE Urine Glucose (UA) TRACE H NEGATIVE Urine Ketones NEGATIVE NEGATIVE Urine Nitrite NEGATIVE NEGATIVE Urine Bilirubin NEGATIVE NEGATIVE Urine Urobilinogen 0.2 < = 1.0 MG/DL Urine Leukocyte Esterase NEGATIVE NEGATIVE Urine RBC (Auto) 1+ H NEGATIVE Urine RBC NONE /HPF Urine WBC 0-2 /HPF Urine Squamous Epithelial Cells NONE /HPF Urine Renal Epithelial Cells NONE /HPF Urine Crystals NONE /LPF Urine Bacteria NEGATIVE /HPF Urine Casts NONE /LPF Urine Mucus NEGATIVE /LPF Urine Culture Indicated NO My Orders Orders - GENE FUENTES DIRECTOR DIGITAL ADVERTISING Ua Culture If Indicated (05/30/21 21:59) Morphine Injection (Morphine Injection (05/30/21 22:08) Diphenhydramine Injection (Benadryl Inje (05/30/21 22:15) Ed Iv/Invasive Line Start (05/30/21 22:26) Medications Given in ED Current Medications Medications Dose Ordered Sig/Ashley Route Start Time Stop Time Status Last Admin Dose Admin Diphenhydramine HCl 25 mg ONCE ONCE IVP 05/30/21 22:15 05/30/21 22:16 DC 05/30/21 22:44 25 MG Vital Signs/I&O 05/30/21 21:40 Temp 37.2 Pulse 95 Resp 18 B/P (MAP) 107/64 (78) O2 Delivery Room Air Blood Pressure Mean: 78 Departure Impression Primary Impression: Chronic right flank pain Additional Impressions: Medullary sponge kidney Nephrolithiasis Disposition: 01 HOME, SELF-CARE Condition: Improved Departure-Patient Inst. Referrals: SEAN MCGREGOR MD (PCP/Family) Primary Care Physician Patient Instructions: Flank Pain ED Add. Discharge Instructions: Plan: 1. Please follow up with your chemical waste management technician for your persistent kidney pain. Call office tomorrow and notify them of your persistent symptoms. 2. Continue your home pain medications. May take Bendaryl as needed for nausea/vomiting as well. 3. You can continue to use heat for comfort and gentle stretching exercises as previously directed. 4. Return for new, worsening, or concerning symptoms. All discharge instructions reviewed with patient and/or family. Voiced understanding. GENE FUENTES DIRECTOR DIGITAL ADVERTISING May 30, 2021 22:32
[2021-05-30 22:40] LABS: BACTERIA,URINE NEGATIVE /HPF; WBC,URINE 0-2 /HPF
[2021-05-30 23:10] VITALS: BP 107/64
== END 2021-05-30 23:11 | disposition home or self-care (01) ==
LOC: EDUNIT# 21:13 → ER 21:15
DX: Q61.5 Medullary cystic kidney (principal); N20.0 Calculus of kidney; Z88.6 Allergy status to analgesic agent
CPT/HCPCS: 81000

== ENCOUNTER 2021-06-01 20:03 | Emergency (ER) | payer MEDICARE, MEDICAID ==
[~2021-06-01] VITALS: Ht 180.3 cm; Wt 64.8 kg
[2021-06-01] MEDS ORDERED: diphenhydrAMINE 50 MG/ML INJ (BENADRYL) IM STA (20:21)
[2021-06-01 20:28] LABS: BILIRUBIN,URINE NEGATIVE (NEGATIVE); CLARITY,URINE CLEAR; COLOR,URINE YELLOW; GLUCOSE, URINE (UA) TRACE (NEGATIVE); KETONES,URINE NEGATIVE (NEGATIVE); LEUKOCYTE ESTERASE ,URINE NEGATIVE (NEGATIVE); NITRITE,URINE NEGATIVE (NEGATIVE); PROTEIN,URINE 2+ (NEGATIVE)
[2021-06-01 20:36] LABS: BACTERIA,URINE NEGATIVE /HPF; SQUAMOUS EPITHELIAL CELL,UR 0-2 /HPF; WBC,URINE 0-2 /HPF
--- NOTE | 2021-06-01 20:53 | ED GU-Male ---
General Chief Complaint: Back Problems Stated Complaint: L FLANK PAIN History of Present Illness Date Seen by Provider: Jun 01, 2021 Time Seen by Provider: 20:25 Initial Comments 41-year-old male presents for chronic left flank pain. He dosed with morphine 5 mg at 1700 today and took Zofran 4 mg for nausea. He continues to have significant pain but his nausea is better controlled. He has left messages with his small brake form operator but no return calls for a follow-up appointment. He was evaluated here 2 days ago, he has not obtained Benadryl to help with the symptoms. Timing/Duration: intermittent Severity/Quality: moderate Location: left flank Radiation: none Associated Symptoms: No dysuria, No fever/chills; lower back pain; No urinary frequency Allergies and Home Medications Allergies Coded Allergies: acetaminophen (Unverified Allergy, Intermediate, 08/15/19) dexamethasone (Unverified Allergy, Intermediate, 08/15/19) fentanyl (Unverified Allergy, Intermediate, 08/15/19) glycopyrrolate (Unverified Allergy, Intermediate, 08/15/19) ketorolac (Unverified Allergy, Intermediate, 08/15/19) metoclopramide (Unverified Allergy, Intermediate, 08/15/19) oxycodone (Unverified Allergy, Intermediate, 08/15/19) prochlorperazine (Unverified Allergy, Intermediate, 08/15/19) promethazine (Unverified Allergy, Intermediate, 08/15/19) suppository route only Home Medications Nitrofurantoin Macrocrystal 100 Mg Capsule, 100 MG PO BID Prescribed by: MARVIN WILLIAMSON on 03/13/211913 Ondansetron 4 Mg Tab.rapdis, 4 MG PO Q6H PRN for NAUSEA/VOMITING Prescribed by: MARVIN WILLIAMSON on 03/13/211913 Ondansetron 8 Mg Tab.rapdis, 8 MG PO Q6H PRN for NAUSEA/VOMITING Prescribed by: DONNA GIBSON on 03/15/21 1602 Patient Home Medication List Home Medication List Reviewed: Yes Review of Systems Review of Systems Constitutional: no symptoms reported, see HPI Gastrointestinal: see HPI, nausea; No vomiting Genitourinary: see HPI, flank pain All Other Systemes Reviewed Negative Unless Noted: Yes Past Brumrbi-Comilc-Ianigo Hx Seasonal Allergies Seasonal Allergies: No Past Medical History Surgery/Hospitalization HX: MEDULLARY KIDNEY DX Surgeries: Yes ( LITHOTRIPSY X 3) Renal Respiratory: No Cardiac: No Neurological: No Genitourinary: Yes (MEDULLARY SPONGE KIDNEY) Kidney Stones, UTI-Chronic Gastrointestinal: No Musculoskeletal: Yes (CHRONIC FLANK PAIN ) Endocrine: No HEENT: No Cancer: No Psychosocial: No Integumentary: No Blood Disorders: No Family Medical History Reviewed Nursing Family Hx Physical Exam Vital Signs Vital Signs - First Documented 06/01/21 20:09 Temp 37.0 Pulse 107 Resp 18 B/P (MAP) 121/79 (93) Pulse Ox 100 Capillary Refill : Height, Weight, BMI Height: '" Weight: lbs. oz. kg; 20.00 BMI Method: General Appearance: WD/WN, mild distress Neck: non-tender, full range of motion, supple, normal inspection Cardiovascular: normal peripheral pulses, regular rate, rhythm Respiratory: chest non-tender, lungs clear, normal breath sounds Gastrointestinal: normal bowel sounds, non tender, soft Back: normal inspection; No CVA tenderness (R); CVA tenderness (L) Extremities: normal range of motion, non-tender, normal inspection, no pedal edema, no calf tenderness Neurologic/Psychiatric: no motor/sensory deficits, alert, normal mood/affect, oriented x 3 Skin: normal color, warm/dry Progress/Results/Core Measures Suspected Sepsis SIRS Temperature: Pulse: Respiratory Rate: Blood Pressure / Mean: Results/Orders Lab Results Laboratory Tests Test 06/01/21 20:20 Range/Units Urine Color YELLOW Urine Clarity CLEAR Urine pH 7.0 5-9 Urine Specific [place] 1.020 1.016-1.022 Urine Protein 2+ H NEGATIVE Urine Glucose (UA) TRACE H NEGATIVE Urine Ketones NEGATIVE NEGATIVE Urine Nitrite NEGATIVE NEGATIVE Urine Bilirubin NEGATIVE NEGATIVE Urine Urobilinogen 0.2 < = 1.0 MG/DL Urine Leukocyte Esterase NEGATIVE NEGATIVE Urine RBC (Auto) 2+ H NEGATIVE Urine RBC NONE /HPF Urine WBC 0-2 /HPF Urine Squamous Epithelial Cells 0-2 /HPF Urine Crystals NONE /LPF Urine Bacteria NEGATIVE /HPF Urine Casts NONE /LPF Urine Mucus NEGATIVE /LPF Urine Culture Indicated NO My Orders Orders - MARVIN WILLIAMSON Ua Culture If Indicated (06/01/21 20:05) Diphenhydramine Injection (Benadryl Inje (06/01/21 20:21) Ondansetron Injection (Zofran Injectio (06/01/21 21:30) Morphine Injection (Morphine Injection (06/01/21 21:30) Ed Iv/Invasive Line Start (06/01/21 21:31) Ns Iv 1000 Ml (Sodium Chloride 0.9%) (06/01/21 21:45) Morphine Injection (Morphine Injection (06/01/21 21:44) Medications Given in ED Current Medications Medications Dose Ordered Sig/Ashley Route Start Time Stop Time Status Last Admin Dose Admin Morphine Sulfate 10 mg STK-MED ONCE .ROUTE 06/01/21 21:44 06/01/21 21:47 DC 06/01/21 21:55 4 MG Ondansetron HCl 8 mg ONCE ONCE IVP 06/01/21 21:30 06/01/21 21:31 DC 06/01/21 21:56 8 MG Vital Signs/I&O 06/01/21 20:09 Temp 37.0 Pulse 107 Resp 18 B/P (MAP) 121/79 (93) Pulse Ox 100 Capillary Refill : Progress Note : Time: 20:25 Progress Note Patient seen and evaluated, will give Benadryl 50 mg IM and monitor for symptoms. 2114 patient having vomiting, reports pain has not improved. Will give normal saline 1 L IV, morphine 4 mg IV and Zofran 8 mg IV. 2199 patient reports symptoms have resolved. he has no having pain or nausea. Discharge instructions and return precautions have been reviewed with him. Departure Impression Primary Impression: Flank pain, chronic Additional Impression: Medullary sponge kidney Disposition: HOME, SELF-CARE Condition: Improved Departure-Patient Inst. Decision time for Depature: 20:05 Referrals: SEAN MCGREGOR MD (PCP/Family) Primary Care Physician Patient Instructions: Flank Pain (DC) Add. Discharge Instructions: Continue to use your home medication as prescribed by your small brake form operator. Call your small brake form operator for a follow-up appointment. Return to the emergency department for new, emergent problems. All discharge instructions reviewed with patient and/or family. Voiced understanding. MARVIN WILLAIMSON Jun 01, 2021 20:52
[2021-06-01] MEDS ORDERED: ONDANSETRON 4 MG/2 ML (SDV) Z0FRAN IVP ONE (21:30)
[2021-06-01] MEDS ORDERED: morphine INJ 4 MG/ML 1 ML (VIAL/SYRINGE) IVP ONE (21:30)
[2021-06-01] MEDS ORDERED: morphine INJ 10 MG/ML 1ML (SYR OR VIAL) ONE (21:44)
[2021-06-01] MEDS ORDERED: NS IV 1000 ML 1,000 ML IV SCH (21:45)
[2021-06-01 23:16] VITALS: BP 110/67
== END 2021-06-01 23:20 | disposition home or self-care (01) ==
LOC: EDUNIT# 20:03 → ER 20:04
DX: Q61.5 Medullary cystic kidney (principal)
CPT/HCPCS: 81000; 96372; 96374; 96375

== ENCOUNTER 2021-06-05 17:51 | Emergency (ER) | payer MEDICARE, MEDICAID ==
[~2021-06-05] VITALS: Ht 180 cm; Wt 55.0 kg
--- NOTE | 2021-06-05 18:30 | ED General ---
General Stated Complaint: KIDNEY PAIN Source of Information: Patient Exam Limitations: No Limitations History of Present Illness Date Seen by Provider: Jun 05, 2021 Time Seen by Provider: 18:29 Initial Comments To ER with bilateral flank pain. This is a chronic issue for him. He requests Dilaudid or IV morphine on arrival to ER typically. He was seen here 2 days ago and 2 days before that receiving IV morphine each time. He also has oral morphine at home. Timing/Duration: 1-2 Days Severity: Moderate Associated Systoms: Denies Symptoms Allergies and Home Medications Allergies Coded Allergies: acetaminophen (Unverified Allergy, Intermediate, 08/15/19) dexamethasone (Unverified Allergy, Intermediate, 08/15/19) fentanyl (Unverified Allergy, Intermediate, 08/15/19) glycopyrrolate (Unverified Allergy, Intermediate, 08/15/19) ketorolac (Unverified Allergy, Intermediate, 08/15/19) metoclopramide (Unverified Allergy, Intermediate, 08/15/19) oxycodone (Unverified Allergy, Intermediate, 08/15/19) prochlorperazine (Unverified Allergy, Intermediate, 08/15/19) promethazine (Unverified Allergy, Intermediate, 08/15/19) suppository route only Home Medications Nitrofurantoin Macrocrystal 100 Mg Capsule, 100 MG PO BID Prescribed by: MARVIN WILLIAMSON on 03/13/211913 Ondansetron 4 Mg Tab.rapdis, 4 MG PO Q6H PRN for NAUSEA/VOMITING Prescribed by: MARVIN WILLIAMSON on 03/13/211913 Ondansetron 8 Mg Tab.rapdis, 8 MG PO Q6H PRN for NAUSEA/VOMITING Prescribed by: DONNA GIBSON on 03/15/21 1602 Patient Home Medication List Home Medication List Reviewed: Yes Review of Systems Review of Systems Constitutional: see HPI EENTM: see HPI Respiratory: no symptoms reported Cardiovascular: no symptoms reported Genitourinary: no symptoms reported Musculoskeletal: no symptoms reported Skin: no symptoms reported Psychiatric/Neurological: No Symptoms Reported Hematologic/Lymphatic: No Symptoms Reported Immunological/Allergic: no symptoms reported Past Btecmzu-Kdirhb-Hblzvw Hx Seasonal Allergies Seasonal Allergies: No Past Medical History Surgery/Hospitalization HX: MEDULLARY KIDNEY DX Surgeries: Yes ( LITHOTRIPSY X 3) Renal Respiratory: No Cardiac: No Neurological: No Genitourinary: Yes (MEDULLARY SPONGE KIDNEY) Kidney Stones, UTI-Chronic Gastrointestinal: No Musculoskeletal: Yes (CHRONIC FLANK PAIN ) Endocrine: No HEENT: No Cancer: No Psychosocial: No Integumentary: No Blood Disorders: No Physical Exam Vital Signs Vital Signs - First Documented 06/05/21 18:25 Temp 37.1 Pulse 120 Resp 18 B/P (MAP) 118/75 (89) Pulse Ox 100 O2 Delivery Room Air Capillary Refill : Height, Weight, BMI Height: '" Weight: lbs. oz. kg; 19.00 BMI Method: General Appearance: No Apparent Distress, WD/WN Eyes: Bilateral Eye Normal Inspection, Bilateral Eye PERRL, Bilateral Eye EOMI HEENT: PERRL/EOMI, TMs Normal Neck: Full Range of Motion, Normal Inspection Respiratory: No Accessory Muscle Use, No Respiratory Distress Cardiovascular: Regular Rate, Rhythm, Normal Peripheral Pulses Gastrointestinal: Normal Bowel Sounds, Non Tender, Soft Neurologic/Psychiatric: Alert, Oriented x3 Skin: Normal Color, Warm/Dry Progress/Results/Core Measures Suspected Sepsis SIRS Temperature: Pulse: Respiratory Rate: Laboratory Tests 06/05/21 19:20: White Blood Count 8.5 Blood Pressure / Mean: Laboratory Tests 06/05/21 19:20: Creatinine 3.98H, Platelet Count 206 Results/Orders Lab Results Laboratory Tests Test 06/05/21 19:20 Range/Units White Blood Count 8.5 4.3-11.0 10^3/uL Red Blood Count 3.53 L 4.30-5.52 10^6/uL Hemoglobin 10.7 L 13.3-17.7 g/dL Hematocrit 33 L 40-54 % Mean Corpuscular Volume 93 80-99 fL Mean Corpuscular Hemoglobin 30 25-34 pg Mean Corpuscular Hemoglobin Concent 33 32-36 g/dL Red Cell Distribution Width 13.9 10.0-14.5 % Platelet Count 206 130-400 10^3/uL Mean Platelet Volume 10.6 9.0-12.2 fL Immature Granulocyte % (Auto) 0 % Neutrophils (%) (Auto) 79 H 42-75 % Lymphocytes (%) (Auto) 16 12-44 % Monocytes (%) (Auto) 4 0-12 % Eosinophils (%) (Auto) 0 0-10 % Basophils (%) (Auto) 1 0-10 % Neutrophils # (Auto) 6.7 1.8-7.8 10^3/uL Lymphocytes # (Auto) 1.3 1.0-4.0 10^3/uL Monocytes # (Auto) 0.3 0.0-1.0 10^3/uL Eosinophils # (Auto) 0.0 0.0-0.3 10^3/uL Basophils # (Auto) 0.1 0.0-0.1 10^3/uL Immature Granulocyte # (Auto) 0.0 0.0-0.1 10^3/uL Sodium Level 140 135-145 MMOL/L Potassium Level 4.0 3.6-5.0 MMOL/L Chloride Level 106 98-107 MMOL/L Carbon Dioxide Level 24 21-32 MMOL/L Anion Gap 10 5-14 MMOL/L Blood Urea Nitrogen 41 H 7-18 MG/DL Creatinine 3.98 H 0.60-1.30 MG/DL Estimat Glomerular Filtration Rate 17 BUN/Creatinine Ratio 10 Glucose Level 107 H 70-105 MG/DL Calcium Level 9.6 8.5-10.1 MG/DL My Orders Orders - DONNA GIBSON APRN Cbc With Automated Diff (06/05/21 18:33) Basic Metabolic Panel (06/05/21 18:33) Morphine Immediate Release Tab (Morphine (06/05/21 18:45) Ondansetron Oral Dissolve Tab (Zofran (06/05/21 20:03) Vital Signs/I&O 06/05/21 18:25 Temp 37.1 Pulse 120 Resp 18 B/P (MAP) 118/75 (89) Pulse Ox 100 O2 Delivery Room Air Capillary Refill : Departure Impression Primary Impression: Chronic pain Additional Impressions: Chronic renal failure Opiate dependence Disposition: HOME, SELF-CARE Condition: Stable Departure-Patient Inst. Decision time for Depature: 18:30 Referrals: SEAN MCGREGOR MD (PCP/Family) Primary Care Physician Patient Instructions: CHRONIC PAIN DONNA GIBSON APRN Jun 05, 2021 18:30
[2021-06-05] MEDS ORDERED: morphine IMMEDIATE RELEASE 15 MG TABLET PO SCH (18:45)
[2021-06-05 19:29] LABS: BASOPHILS # (AUTO) 0.1 10^3/uL (0.0-0.1); BASOPHILS % (AUTO) 1 % (0-10); EOSINOPHILS % (AUTO) 0 % (0-10); HEMATOCRIT 33 % (40-54); HEMOGLOBIN 10.7 g/dL (13.3-17.7); LYMPHOCYTES # (AUTO) 1.3 10^3/uL (1.0-4.0); LYMPHOCYTES % (AUTO) 16 % (12-44); MEAN CORPUSCULAR HEMOGLOBIN 30 pg (25-34); MEAN CORPUSCULAR HGB CONC 33 g/dL (32-36); MEAN CORPUSCULAR VOLUME 93 fL (80-99); MEAN PLATELET VOLUME 10.6 fL (9.0-12.2); MONOCYTES # (AUTO) 0.3 10^3/uL (0.0-1.0); MONOCYTES % (AUTO) 4 % (0-12); NEUTROPHILS # (AUTO) 6.7 10^3/uL (1.8-7.8); NEUTROPHILS % (AUTO) 79 % (42-75); PLATELET COUNT 206 10^3/uL (130-400); WHITE BLOOD COUNT 8.5 10^3/uL (4.3-11.0)
[2021-06-05 19:49] LABS: CALCIUM 9.6 MG/DL (8.5-10.1); CREATININE SERUM 3.98 MG/DL (0.60-1.30)
[2021-06-05] MEDS ORDERED: ONDANSETRON 4 MG (ZOFRAN) ORAL DISSOLVE TAB PO STA (20:03)
[2021-06-05 20:05] VITALS: BP 97/56
== END 2021-06-05 20:05 | disposition home or self-care (01) ==
LOC: EDUNIT# 17:51 → ER 17:53
DX: G89.29 Other chronic pain (principal); R10.9 Unspecified abdominal pain; N18.9 Chronic kidney disease, unspecified; F11.20 Opioid dependence, uncomplicated; Z87.440 Personal history of urinary (tract) infections; Z87.442 Personal history of urinary calculi; Z88.6 Allergy status to analgesic agent; Z88.5 Allergy status to narcotic agent
CPT/HCPCS: 36415; 80048; 85025; 99283

== ENCOUNTER 2021-06-09 08:20 | Emergency (ER) | payer MEDICARE, MEDICAID ==
[~2021-06-09] VITALS: Ht 180 cm; Wt 67.0 kg
[2021-06-09] MEDS ORDERED: diphenhydrAMINE 50 MG/ML INJ (BENADRYL) IV ONE (09:00)
[2021-06-09] MEDS ORDERED: diphenhydrAMINE 50 MG/ML INJ (BENADRYL) IM ONE (09:00)
--- NOTE | 2021-06-09 09:09 | ED Abdominal Pain ---
General Chief Complaint: Abdominal/GI Problems Stated Complaint: RIGHT FLANK PAIN Nursing Triage Note: ARRIVED VIA [facility] WITH COMPLAINTS OF CHRONIC LEFT SIDED FLANK PAIN. STATES [facility] HAS TOLD HIM HE NEEDS ON A KIDNEY TRANSPLANT LIST. STATES HE HAS TAKEN MORPHINE AND ZOFRAN THIS AM. Source of Information: Patient Exam Limitations: No Limitations History of Present Illness Date Seen by Provider: Jun 09, 2021 Time Seen by Provider: 08:45 Initial Comments Rosales is a 41-year-old male well-known to me with a history of medullary sponge kidney and frequent ER visits. He had 6 visits in March of this year is and this is his sixth visit in May of this year. Patient states that his pain is out of control he complains of right flank pain. He has had multiple scans in his past to evaluate for kidney stones. He states the pain is worse this morning than usual. He denies any burning with urination or urgency or frequency. He has chronic kidney failure and follows with Dr. Duarte out of [facility] in [facility]. Patient states he is not scheduled to have an appointment until September with Dr. Duarte. He denies fevers or chills, he is having nausea and vomiting. He denies blood in his vomit. No diarrhea no black or bloody stools. Denies genitourinary complaints specifically swelling in his scrotum or testicular pain. He cannot recall the last time that he had an active kidney stone. He was most recently in the hospital 3 or 4 days ago. Normal work-up at that time. On May 29 he had a CAT scan of the abdomen and pelvis done which showed bilateral nonobstructing renal stones. No hydronephrosis. Per review of the medical record the patient's renal function has been steadily declining since he started coming to [facility]. His creatinine is 4 today. It has been in the range of 3 and a little higher on his previous ER visits. Rosales is strongly counseled on opiate dependence and seeking opiate medications in the ED. He tells me that he has a referral in progress to pain management out of [facility] in [place]. He states he is going to call on Friday to see the status of his referral. He has his oral morphine at home but states that his 4 mg tablets have not been treating his pain. He also has Zofran at home. He is "allergic" to most all other pain medications and nausea medications. He does not recall the adverse effects to most of these medicines. Nursing reported significant difficulty in obtaining IV access therefore IM Benadryl was given. He was given 15 mg of immediate release morphine. He was also given another 8 mg of oral Zofran. Timing/Duration: 12-24 Hours Severity/Quality: Severe, Aching Location: RLQ Radiation: No Radiation Activities at Onset: None Associated Symptoms: Nausea/Vomiting Allergies and Home Medications Allergies Coded Allergies: acetaminophen (Unverified Allergy, Intermediate, 08/15/19) dexamethasone (Unverified Allergy, Intermediate, 08/15/19) fentanyl (Unverified Allergy, Intermediate, 08/15/19) glycopyrrolate (Unverified Allergy, Intermediate, 08/15/19) ketorolac (Unverified Allergy, Intermediate, 08/15/19) metoclopramide (Unverified Allergy, Intermediate, 08/15/19) oxycodone (Unverified Allergy, Intermediate, 08/15/19) prochlorperazine (Unverified Allergy, Intermediate, 08/15/19) promethazine (Unverified Allergy, Intermediate, 08/15/19) suppository route only Home Medications Nitrofurantoin Macrocrystal 100 Mg Capsule, 100 MG PO BID Prescribed by: MARVIN WILLIAMSON on 03/13/211913 Ondansetron 4 Mg Tab.rapdis, 4 MG PO Q6H PRN for NAUSEA/VOMITING Prescribed by: MARVIN WILLIAMSON on 03/13/211913 Ondansetron 8 Mg Tab.rapdis, 8 MG PO Q6H PRN for NAUSEA/VOMITING Prescribed by: DONNA GIBSON on 03/15/21 1602 Patient Home Medication List Home Medication List Reviewed: Yes Review of Systems Review of Systems Constitutional: see HPI EENTM: No Symptoms Reported Respiratory: No Symptoms Reported Cardiovascular: No Symptoms Reported Gastrointestinal: Abdominal Pain, Nausea Genitourinary: No Symptoms Reported Musculoskeletal: no symptoms reported Skin: no symptoms reported Psychiatric/Neurological: Anxiety All Other Systems Reviewed Negative Unless Noted: Yes Past Uohgnux-Efjwic-Wldhdc Hx Patient Social History Tobacco Use?: No Smokeless Tobacco Frequency: Never a User Substance use?: No Alcohol Use?: No Seasonal Allergies Seasonal Allergies: No Past Medical History Surgery/Hospitalization HX: MEDULLARY KIDNEY DX Surgeries: Yes ( LITHOTRIPSY X 3) Renal Respiratory: No Cardiac: No Neurological: No Genitourinary: Yes (MEDULLARY SPONGE KIDNEY) Kidney Stones, UTI-Chronic Gastrointestinal: No Musculoskeletal: Yes (CHRONIC FLANK PAIN ) Endocrine: No HEENT: No Cancer: No Psychosocial: No Integumentary: No Blood Disorders: No Physical Exam Vital Signs Vital Signs - First Documented 06/09/21 08:29 Temp 36.5 Pulse 135 Resp 16 B/P (MAP) 109/82 (91) Pulse Ox 100 O2 Delivery Room Air Capillary Refill : Less Than 3 Seconds Height/Weight/BMI Height: '" Weight: lbs. oz. kg; 20.00 BMI Method: General Appearance: WD/WN, moderate distress (tearful and crying), thin HEENT: PERRL/EOMI Respiratory: lungs clear, normal breath sounds, no respiratory distress, no accessory muscle use Cardiovascular: regular rate, rhythm Gastrointestinal: soft, tenderness (mild tenderness, mild CVA tenderness) Extremities: non-tender, normal inspection, no pedal edema Back: normal inspection Neurologic/Psychiatric: alert, oriented x 3, depressed affect, other (anxious and tearful) Skin: normal color, warm/dry Progress/Results/Core Measures Results/Orders Lab Results Laboratory Tests Test 06/09/21 09:40 Range/Units Sodium Level 143 135-145 MMOL/L Potassium Level 3.7 3.6-5.0 MMOL/L Chloride Level 105 98-107 MMOL/L Carbon Dioxide Level 25 21-32 MMOL/L Anion Gap 13 5-14 MMOL/L Blood Urea Nitrogen 40 H 7-18 MG/DL Creatinine 4.06 H 0.60-1.30 MG/DL Estimat Glomerular Filtration Rate 16 BUN/Creatinine Ratio 10 Glucose Level 107 H 70-105 MG/DL Calcium Level 9.6 8.5-10.1 MG/DL My Orders Orders - ARIE FERNANDEZ MD Ed Iv/Invasive Line Start (06/09/21 08:51) Basic Metabolic Panel (06/09/21 08:51) Diphenhydramine Injection (Benadryl Inje (06/09/21 09:00) Diphenhydramine Injection (Benadryl Inje (06/09/21 09:00) Morphine Immediate Release Tab (Morphine (06/09/21 09:45) Ondansetron Oral Dissolve Tab (Zofran (06/09/21 10:12) Medications Given in ED Current Medications Medications Dose Ordered Sig/Ashley Route Start Time Stop Time Status Last Admin Dose Admin Diphenhydramine HCl 50 mg ONCE ONCE IM 06/09/21 09:00 06/09/21 09:01 DC 06/09/21 09:04 50 MG Vital Signs/I&O 06/09/21 08:29 Temp 36.5 Pulse 135 Resp 16 B/P (MAP) 109/82 (91) Pulse Ox 100 O2 Delivery Room Air Blood Pressure Mean: 91 Progress Progress Note : Time: 10:46 Progress Note Notified by Rosanna the patient's nurse that he is feeling better. Patient will be discharged to home at this time. Departure Impression Primary Impression: Abdominal pain Qualified Codes: R10.31 - Right lower quadrant pain Additional Impressions: Medullary sponge kidney of both kidneys Chronic renal failure Qualified Codes: N18.9 - Chronic kidney disease, unspecified Disposition: HOME, SELF-CARE Condition: Stable Departure-Patient Inst. Decision time for Depature: 10:18 Referrals: DARELL DUARTE MD, BENJAMEN H MD (PCP) Primary Care Physician Patient Instructions: Kidney Failure Add. Discharge Instructions: Follow-up with your stile ripsaw operator next week. Your kidney function is declining. I would anticipate you are looking at hemodialysis or peritoneal dialysis in near future. Please keep on top of appointments with your stile ripsaw operator. Please call on Friday to see where your referral to pain management is standing. Follow a clear liquid diet today then slowly advance your diet as tolerated. Use your Zofran on a scheduled basis every 6-8 hours for nausea. Continue your home opiate medications. Come back to the emergency room for any fevers in the setting of worsening abdominal pain, burning with urination or other emergent concerns. ARIE FERNANDEZ MD Jun 09, 2021 09:09
[2021-06-09] MEDS ORDERED: morphine IMMEDIATE RELEASE 15 MG TABLET PO SCH (09:45)
[2021-06-09 09:58] LABS: POTASSIUM 3.7 MMOL/L (3.6-5.0)
[2021-06-09 10:00] LABS: CALCIUM 9.6 MG/DL (8.5-10.1)
[2021-06-09 10:04] LABS: CREATININE SERUM 4.06 MG/DL (0.60-1.30)
[2021-06-09] MEDS ORDERED: ONDANSETRON 4 MG (ZOFRAN) ORAL DISSOLVE TAB PO STA (10:12)
[2021-06-09 10:57] VITALS: BP 107/71
== END 2021-06-09 10:57 | disposition home or self-care (01) ==
LOC: EDUNIT# 08:20 → ER 08:23
DX: N18.9 Chronic kidney disease, unspecified (principal); Q61.5 Medullary cystic kidney; Z87.442 Personal history of urinary calculi; Z87.440 Personal history of urinary (tract) infections
CPT/HCPCS: 36415; 80048; 99284

== ENCOUNTER 2022-05-17 22:34 | Emergency (ER) | payer MEDICARE, MEDICAID ==
--- NOTE | 2022-05-17 22:50 | ED Psychosocial ---
General Chief Complaint: Psych/Social Disorder Stated Complaint: ANXIETY ATTACK Source: patient Exam Limitations: no limitations History of Present Illness Date Seen by Provider: May 18, 2022 Time Seen by Provider: 22:37 Initial Comments 42yoM presenting for what he says is a panic attack. Began crying and getting emotional just over an hour ago, heart started racing. This happens frequently and most recent one was a month ago. He typically takes Ativan for it, but it ran out. No chest pain, SOA, abd pain, vomiting, diarrhea, weakness, numbness or any other concerns. KTRACs reviewed by me showing he had a month of Ativan written for him over a month ago so he is appropriately out of the medication. Allergies and Home Medications Allergies Coded Allergies: acetaminophen (Unverified Allergy, Intermediate, 08/15/19) dexamethasone (Unverified Allergy, Intermediate, 08/15/19) fentanyl (Unverified Allergy, Intermediate, 08/15/19) glycopyrrolate (Unverified Allergy, Intermediate, 08/15/19) ketorolac (Unverified Allergy, Intermediate, 08/15/19) metoclopramide (Unverified Allergy, Intermediate, 08/15/19) oxycodone (Unverified Allergy, Intermediate, 08/15/19) prochlorperazine (Unverified Allergy, Intermediate, 08/15/19) promethazine (Unverified Allergy, Intermediate, 08/15/19) suppository route only Patient Home Medication List Home Medication List Reviewed: Yes Nitrofurantoin Macrocrystal (Nitrofurantoin) 100 Mg Capsule, 100 MG PO BID Prescribed by: MARVIN WILLIAMSON on 03/13/211913 Ondansetron (Ondansetron Odt) 4 Mg Tab.rapdis, 4 MG PO Q6H PRN for WINIFRED SEA/VOMITING Prescribed by: MARVIN WILLIAMSON on 03/13/211913 Ondansetron (Ondansetron Odt) 8 Mg Tab.rapdis, 8 MG PO Q6H PRN for NAUSEA/VOMITING Prescribed by: DONNA GIBSON on 03/15/21 1602 Review of Systems Constitutional: No fever EENTM: No blurred vision Respiratory: No cough Cardiovascular: No chest pain Gastrointestinal: No abdominal pain Genitourinary: no symptoms reported Musculoskeletal: no symptoms reported Skin: no symptoms reported Psychiatric/Neurological: Anxiety All Other Systems Reviewed Negative Unless Noted: Yes Past Spfhzmf-Znqvjz-Ipdmzl Hx Patient Social History Tobacco Use?: No Seasonal Allergies Seasonal Allergies: No Past Medical History Surgery/Hospitalization HX: MEDULL[facility] KIDNEY DX Surgeries: Yes ( LITHOTRIPSY X 3) Renal Respiratory: No Cardiac: No Neurological: No Genitourinary: Yes (MEDULLARY SPONGE KIDNEY) Kidney Stones, UTI-Chronic Gastrointestinal: No Musculoskeletal: Yes (CHRONIC FLANK PAIN ) Endocrine: No HEENT: No Cancer: No Psychosocial: No Integumentary: No Blood Disorders: No Physical Exam Vital Signs - First Documented 05/17/22 22:40 Temp 37.1 Pulse 135 Resp 24 B/P (MAP) 123/91 (102) Pulse Ox 98 O2 Delivery Room Air Capillary Refill : Height, Weight, BMI Height: '" Weight: lbs. oz. kg; 20.00 BMI Method: General Appearance: WD/WN, mild distress HEENT: PERRL/EOMI, normal ENT inspection, pharynx normal Neck: non-tender, full range of motion, supple, normal inspection Respiratory: chest non-tender, lungs clear, normal breath sounds, no respiratory distress, no accessory muscle use Cardiovascular: regular rate, rhythm, no edema, no murmur Gastrointestinal: normal bowel sounds, non tender, soft; No distended, No guarding, No rebound Extremities: normal range of motion, non-tender, normal inspection, no pedal edema, no calf tenderness, normal capillary refill Neurologic/Psychiatric: no motor/sensory deficits, alert, normal mood/affect Appearance/Memory: appropriate appearance, appropriate insight, other (anxious) Behavior/Eye Contact: cooperative, good eye contact Thoughts/Hallucinations: normal thought pattern, no apparent hallucination Skin: normal color, warm/dry Lymphatic: no adenopathy Suicide Risk Suicide Risk Suicide Risk Level / RN Screen: Low Low Suicide Risk Level []Suicidal Ideation WITHOUT method, intent, plan or behavior more than a month ago []]Modifiable risk factors and strong protective factors []No reported history of suicidal ideation or behavior []Patient reports/exhibits symptoms consistent with psychosis []Patient reports a plan that would be unrealistic/impossible to complete and intent []Suicide attempt prior to arrival (Indicates at LEAST Low Suicide Risk, consider other risk factors) Moderate Suicide Risk Level: []Suicidal ideation with method, WITHOUT plan, intent or behavior in the past month []Multiple risk factors and few protective factors []Patient reports intent to follow through on plan to end life if allowed to [facility], and has attempted to elope from the hospital High Suicide Risk Level: [] Suicidal ideation with intent or intent with a plan in the past month [] Patient has harmed self or attempted suicide while in the hospital [] Patient has hx of or current Command Auditory hallucinations to harm self or others that they follow without hesitation [] Patient refuses to disclose plan, and indicates intent to complete [] Patient reports plan that is possible to accomplish and/or has means to complete Risk factors supporting recommendation: [] Non-compliance with treatment (acute or chronic) [] Patient has access to or owns firearms and/or stockpiled medications [] Hx Impulsive behavior [] Pending incarceration or homelessness [] Sexual abuse [] Family history and/or exposure to suicide [] Adverse childhood experiences [] Exposure to violence or negative socio-political cultural, and economic forces [] Current or hx of substance use/abuse [] Chronic physical pain or other acute medical problem (AIDS, COPD, Cancer, etc) [] Perceived burden on family or others [] Patient has attempted to elope [] Unable to answer and/or unable to identify [] Refuses to agree to a safety plan Protective Factors supporting recommendation: [] Identifies reasons for living [] Future plans/goals [] Engaged in work or School [] Good family support network [] Good social support network [] Responsibility to family [] Belief that suicide is immoral, against their oriental orthodox beliefs [] High spirituality and involvement in yarsanism community [] Fear of or dying due to pain and suffering [] Established outpt psychiatric services [] Unable to answer and/or unable to identify Risk Assessment Tool Score: Low Progress/Results/Core Measures Results/Orders My Orders Orders - MIRTHA IBANEZ MD Lorazepam Tablet (Ativan Tablet) (05/17/22 23:00) Lorazepam Tablet (Ativan Tablet) (05/17/22 22:55) Medications Given in ED Current Medications Medications Dose Ordered Sig/Ashley Route Start Time Stop Time Status Last Admin Dose Admin Lorazepam 0.5 mg STK-MED ONCE .ROUTE 05/17/22 22:55 05/17/22 22:58 DC 05/17/22 23:00 1 MG Vital Signs/I&O 05/17/22 05/17/22 22:40 23:18 Temp 37.1 37.1 Pulse 135 106 Resp 24 18 B/P (MAP) 123/91 (102) 119/79 Pulse Ox 98 98 O2 Delivery Room Air Room Air Progress Progress Note : Progress Note 42-year-old male with above history coming in due to what he says is his typical panic attack. He says they are very characteristic and this is exactly what they are like. He is not having any red flags such as chest pain, shortness of breath, or any other concerns such as that. On KTRACs he is typically written for Ativan 1mg #28 for 28 days. Last script filled on 04/12/22 so he is appropriately out of the medication. He says he just needs to schedule another appointment to get a refill which he will do. His last dose was over a week ago so withdrawal unlikely. I will give him a single dose here of his typical dose. I believe he stable for discharge with outpatient follow-up. He was sent home with strict return precautions. Departure Impression Primary Impression: Anxiety disorder Qualified Codes: F41.0 - Panic disorder [episodic paroxysmal anxiety] Disposition: 01 HOME, SELF-CARE Condition: Improved Departure-Patient Inst. Decision time for Depature: 23:15 Referrals: SEAN MCGREGOR MD (PCP/Family) Primary Care Physician Patient Instructions: Generalized Anxiety Disorder Add. Discharge Instructions: I recommend following up with your regular doctor to get a refill of your prescription. I also would recommend asking your physician to start you on a medication that you would take daily to help minimize the number of panic attacks you have. Typically some type of SSRI is helpful for this. Work/School Note: Work Release Form Date Seen in the Emergency Department: May 17, 2022 Return to Work: May 18, 2022 MIRTHA IBANEZ MD May 17, 2022 22:50
[2022-05-17] MEDS ORDERED: LORazepam 0.5 MG (ATIVAN) TABLET ONE (22:55)
[2022-05-17] MEDS ORDERED: LORazepam 1 MG (ATIVAN) TAB PO ONE (23:00)
[2022-05-17 23:18] VITALS: BP 119/79
== END 2022-05-17 23:18 | disposition home or self-care (01) ==
LOC: EDUNIT# 22:34 → ER 22:36
DX: F41.9 Anxiety disorder, unspecified (principal)
CPT/HCPCS: 99283

== ENCOUNTER 2022-08-11 20:13 | Emergency (ER) | payer MEDICARE, MEDICAID ==
[~2022-08-11] VITALS: Ht 180 cm; Wt 77.1 kg
--- NOTE | 2022-08-11 20:32 | ED GI ---
General Chief Complaint: Abdominal/GI Problems Stated Complaint: NAUSEA Nursing Triage Note: PT AMB TO RM 9 W C/O NAUSEA AND 4 EPISODES OF VOMITING SX 1600 TODAY. PT REPORTS HE TOOK 4MG ZOFRAN PO 2X W/O RELIEF. PT A&OX4, DENIES PAIN. Source of Information: Patient (CALLYALEXANDRA FRENCH) History of Present Illness Date Seen by Provider: Aug 11, 2022 Time Seen by Provider: 20:30 Initial Comments Patient is a 42 yo M who presents to the ED with nausea and vomiting that began at 1600 today. He states he has had 4 episodes of NBNB emesis since that time. Denies fever, abd pain, urinary symptoms, diarrhea. States he took zofran without improvment. States he has had improvement in the past with IM phenergan if the zofran does not work. Denies any pain. Timing/Duration: 4-6 Hours Radiation: No Radiation (ALEXANDRA ALAMO APRN) Allergies and Home Medications Allergies Coded Allergies: acetaminophen (Unverified Allergy, Intermediate, 08/15/19) dexamethasone (Unverified Allergy, Intermediate, 08/15/19) fentanyl (Unverified Allergy, Intermediate, 08/15/19) glycopyrrolate (Unverified Allergy, Intermediate, 08/15/19) ketorolac (Unverified Allergy, Intermediate, 08/15/19) metoclopramide (Unverified Allergy, Intermediate, 08/15/19) oxycodone (Unverified Allergy, Intermediate, 08/15/19) prochlorperazine (Unverified Allergy, Intermediate, 08/15/19) promethazine (Unverified Allergy, Intermediate, 08/15/19) suppository route only Patient Home Medication List Home Medication List Reviewed: Yes (ALEXANDRA ALAMO APRN) Nitrofurantoin Macrocrystal (Nitrofurantoin) 100 Mg Capsule, 100 MG PO BID Prescribed by: MARVIN WILLIAMSON on 03/13/211913 Ondansetron (Ondansetron Odt) 4 Mg Tab.rapdis, 4 MG PO Q6H PRN for NAUSEA/VOMITING Prescribed by: MARVIN WILLIAMSON on 03/13/211913 Ondansetron (Ondansetron Odt) 8 Mg Tab.rapdis, 8 MG PO Q6H PRN for NAUSEA/V OMITING Prescribed by: DONNA GIBSON on 03/15/21 1602 Review of Systems Review of Systems Constitutional: no symptoms reported EENTM: No Symptoms Reported Respiratory: No Symptoms Reported Cardiovascular: No Symptoms Reported Gastrointestinal: Nausea, Vomiting Genitourinary: No Symptoms Reported Skin: no symptoms reported (ALEXANDRA ALAMO APRN) Past Kjmdbov-Rjufox-Fsachv Hx Patient Social History Tobacco Use?: No Use of E-Cig and/or Vaping dev: No Substance use?: No Alcohol Use?: No (ALEXANDRA ALAMO APRN) Immunizations Up To Date Influenza Vaccine Up-to-Date: No; Not Current First/Initial COVID19 Vaccinat: NONE Second COVID19 Vaccination Erlin: NONE Third COVID19 Vaccination Date: NONE COVID19 Vaccine Sports Statistician: NONE (ALEXANDRA ALAMO APRN) Seasonal Allergies Seasonal Allergies: No (ALEXANDRA ALAOM APRN) Past Medical History Surgery/Hospitalization HX: MEDULLARY KIDNEY DX Surgeries: Yes ( LITHOTRIPSY X 3) Renal Respiratory: No Cardiac: No Neurological: No Genitourinary: Yes (MEDULLARY SPONGE KIDNEY) Kidney Stones, UTI-Chronic Gastrointestinal: No Musculoskeletal: Yes (CHRONIC FLANK PAIN ) Endocrine: No HEENT: No Cancer: No Psychosocial: No Integumentary: No Blood Disorders: No (ALEXANDRA ALAMO APRN) Physical Exam Vital Signs Vital Signs - First Documented 08/11/22 20:20 Temp 36.8 Pulse 112 Resp 20 B/P (MAP) 129/91 (104) Pulse Ox 100 O2 Delivery Room Air (SHIRLEY,JIE K DO) Vital Signs Capillary Refill : Less Than 3 Seconds (ALEXANDRA ALAMO APRN) Height/Weight/BMI Height: '" Weight: lbs. oz. kg; 23.00 BMI Method: General Appearance: WD/WN, no apparent distress HEENT: PERRL/EOMI, normal ENT inspection Neck: non-tender, full range of motion Respiratory: chest non-tender Cardiovascular: regular rate, rhythm Gastrointestinal: normal bowel sounds, non tender, soft Extremities: normal range of motion, non-tender Neurologic/Psychiatric: alert, normal mood/affect, oriented x 3 Skin: normal color, warm/dry (ALEXANDRA ALAMO APRN) Progress/Results/Core Measures Results/Orders Medications Given in ED Current Medications Medications Dose Ordered Sig/Ashley Route Start Time Stop Time Status Last Admin Dose Admin Promethazine HCl 25 mg ONCE ONCE IM 08/11/22 20:45 08/11/22 20:46 DC 08/11/22 20:44 25 MG (JIE WATSON DO) Vital Signs/I&O 08/11/22 08/11/22 20:20 21:18 Temp 36.8 36.6 Pulse 112 98 Resp 20 20 B/P (MAP) 129/91 (104) 122/80 Pulse Ox 100 100 O2 Delivery Room Air Room Air (JIE WATSON DO) Blood Pressure Mean: 104 Progress Progress Note : Progress Note Patient is nontoxic and well hydrated on exam. No evidence of marked dehydration noted on exam. Pt is mildly tachycardic but vital signs are otherwise reassuring. Abdominal exam is reassuring. Pt given an IM dose of phenergan. Will d/c home with recs for supportive care and follow-up with PCP for persistent symptoms. Return precautions for urgent symptomology discussed. Patient verbalized understanding. (ALEXANDRA ALAMO APRN) Departure Impression Primary Impression: Nausea and vomiting Qualified Codes: R11.2 - Nausea with vomiting, unspecified Disposition: HOME, SELF-CARE Condition: Stable Departure-Patient Inst. Decision time for Depature: 20:50 (ALEXANDRA ALAMO APRN) Referrals: SEAN MCGREGOR MD (PCP/Family) Primary Care Physician Patient Instructions: Nausea and Vomiting, Adult ATTENDING PHYSICIAN NOTE: I WAS PHYSICALLY PRESENT ER PHYSICIAN, BUT I WAS NOT INVOLVED IN ANY DECISION MAKING OR ANY CARE OF THIS PATIENT, AND I AM NOT COLLABORATING PHYSICIAN. (JIE WATSON DO) ALEXANDRA ALAMO APRN Aug 11, 2022 20:32 JIE WATSON DO Aug 11, 2022 23:44
[2022-08-11] MEDS ORDERED: PROMETHAZINE INJ 25 MG/ML (PHENERGAN) AMP IM ONE (20:45)
[2022-08-11 21:18] VITALS: BP 122/80
== END 2022-08-11 21:18 | disposition home or self-care (01) ==
LOC: EDUNIT# 20:13 → ER 20:14
DX: R11.2 Nausea with vomiting, unspecified (principal); R00.0 Tachycardia, unspecified; Z28.310 Unvaccinated for COVID-19
CPT/HCPCS: 96372; 99284

== ENCOUNTER 2022-08-16 19:27 | Emergency (ER) | payer MEDICARE, MEDICAID ==
[~2022-08-16] VITALS: Ht 180 cm; Wt 90.0 kg
[2022-08-16 19:36] VITALS: BP 123/87
[2022-08-16] MEDS ORDERED: morphine INJ 10 MG/ML 1ML (SYR OR VIAL) IM STA (19:40)
--- NOTE | 2022-08-16 19:44 | ED GU-Male ---
General Chief Complaint: Abdominal/GI Problems Stated Complaint: RIGHT FLANK PAIN Nursing Triage Note: Patient presented to the ER tonight with complaints of right lower quadrant abdominal pain that began this morning. Patient states pain is a 05/19. Source: patient Exam Limitations: no limitations History of Present Illness Date Seen by Provider: Aug 16, 2022 Time Seen by Provider: 19:42 Initial Comments To ER by private vehicle with reports of worsening of his chronic right flank pain since this afternoon. No fevers or chills. He also has nausea. He takes morphine at home and states that he had his last dose a few hours ago. Timing/Duration: constant Severity/Quality: moderate Location: right flank Radiation: none Activities at Onset: none Prior Genitourinary Problems: none Associated Symptoms: nausea/vomiting Allergies and Home Medications Allergies Coded Allergies: acetaminophen (Unverified Allergy, Intermediate, 08/15/19) dexamethasone (Unverified Allergy, Intermediate, 08/15/19) fentanyl (Unverified Allergy, Intermediate, 08/15/19) glycopyrrolate (Unverified Allergy, Intermediate, 08/15/19) ketorolac (Unverified Allergy, Intermediate, 08/15/19) metoclopramide (Unverified Allergy, Intermediate, 08/15/19) oxycodone (Unverified Allergy, Intermediate, 08/15/19) prochlorperazine (Unverified Allergy, Intermediate, 08/15/19) promethazine (Unverified Allergy, Intermediate, 08/15/19) suppository route only Patient Home Medication List Home Medication List Reviewed: Yes Nitrofurantoin Macrocrystal (Nitrofurantoin) 100 Mg Capsule, 100 MG PO BID Prescribed by: MARVIN WILLIAMSON on 03/13/211913 Ondansetron (Ondansetron Odt) 4 Mg Tab.rapdis, 4 MG PO Q6H PRN for NAUSEA/VOMITING Prescribed by: MARVIN WILLIAMSON on 03/13/211913 Ondansetron (Ondansetron Odt) 8 Mg Tab.rapdis, 8 MG PO Q6H PRN for NAUSEA/VOMITING Prescribed by: DONNA GIBSON on 03/15/21 1602 Review of Systems Review of Systems Constitutional: see HPI EENTM: see HPI Respiratory: no symptoms reported Cardiovascular: no symptoms reported Genitourinary: see HPI, flank pain Musculoskeletal: no symptoms reported Skin: no symptoms reported Psychiatric/Neurological: No Symptoms Reported Endocrine: No Symptoms Reported Hematologic/Lymphatic: No Symptoms Reported Past Bmqholn-Huasjf-Njlxkw Hx Patient Social History Tobacco Use?: No Substance use?: No Alcohol Use?: No Pt feels they are or have been: No Immunizations Up To Date First/Initial COVID19 Vaccinat: NONE Second COVID19 Vaccination Erlin: NONE Third COVID19 Vaccination Date: NONE Seasonal Allergies Seasonal Allergies: No Past Medical History Surgery/Hospitalization HX: MEDULLARY KIDNEY DX Surgeries: Yes ( LITHOTRIPSY X 3) Renal Respiratory: No Cardiac: No Neurological: No Genitourinary: Yes (MEDULLARY SPONGE KIDNEY) Kidney Stones, UTI-Chronic Gastrointestinal: No Musculoskeletal: Yes (CHRONIC FLANK PAIN ) Endocrine: No HEENT: No Cancer: No Psychosocial: No Integumentary: No Blood Disorders: No Physical Exam Vital Signs Vital Signs - First Documented 08/16/22 19:36 Temp 36.2 Pulse 120 Resp 18 B/P (MAP) 123/87 (99) Pulse Ox 94 O2 Delivery Room Air Capillary Refill : Less Than 3 Seconds Height, Weight, BMI Height: '" Weight: lbs. oz. kg; 27.00 BMI Method: General Appearance: WD/WN, no apparent distress, other (Tearful as per his usual on previous visits.) HEENT: PERRL/EOMI, normal ENT inspection Neck: non-tender, full range of motion Respiratory: no respiratory distress, no accessory muscle use Gastrointestinal: normal bowel sounds, non tender Back: CVA tenderness (R) Extremities: normal range of motion, non-tender Neurologic/Psychiatric: alert, normal mood/affect, oriented x 3 Skin: normal color, warm/dry Progress/Results/Core Measures Suspected Sepsis SIRS Temperature: Pulse: 120 Respiratory Rate: 18 Laboratory Tests 08/16/22 19:45: White Blood Count 9.1 Blood Pressure 123 /87 Mean: 99 Laboratory Tests 08/16/22 19:45: Creatinine 3.85H, Platelet Count 215, Total Bilirubin 0.5 Results/Orders Lab Results Laboratory Tests Test 08/16/22 19:40 08/16/22 19:45 Range/Units Urine Color YELLOW Urine Clarity CLEAR Urine pH 6.0 5-9 Urine Specific [place] 1.015 L 1.016-1.022 Urine Protein 2+ H NEGATIVE Urine Glucose (UA) TRACE H NEGATIVE Urine Ketones NEGATIVE NEGATIVE Urine Nitrite NEGATIVE NEGATIVE Urine Bilirubin NEGATIVE NEGATIVE Urine Urobilinogen 0.2 < = 1.0 MG/DL Urine Leukocyte Esterase TRACE H NEGATIVE Urine RBC (Auto) 2+ H NEGATIVE Urine RBC 0-2 /HPF Urine WBC 5-10 H /HPF Urine Squamous Epithelial Cells 0-2 /HPF Urine Crystals NONE /LPF Urine Bacteria FEW H /HPF Urine Casts NONE /LPF Urine Mucus NEGATIVE /LPF Urine Culture Indicated YES White Blood Count 9.1 4.3-11.0 10^3/uL Red Blood Count 3.96 L 4.30-5.52 10^6/uL Hemoglobin 11.5 L 13.3-17.7 g/dL Hematocrit 36 L 40-54 % Mean Corpuscular Volume 91 80-99 fL Mean Corpuscular Hemoglobin 29 25-34 pg Mean Corpuscular Hemoglobin Concent 32 32-36 g/dL Red Cell Distribution Width 14.3 10.0-14.5 % Platelet Count 215 130-400 10^3/uL Mean Platelet Volume 10.1 9.0-12.2 fL Immature Granulocyte % (Auto) 0 % Neutrophils (%) (Auto) 72 42-75 % Lymphocytes (%) (Auto) 19 12-44 % Monocytes (%) (Auto) 5 0-12 % Eosinophils (%) (Auto) 3 0-10 % Basophils (%) (Auto) 1 0-10 % Neutrophils # (Auto) 6.6 1.8-7.8 10^3/uL Lymphocytes # (Auto) 1.7 1.0-4.0 10^3/uL Monocytes # (Auto) 0.5 0.0-1.0 10^3/uL Eosinophils # (Auto) 0.2 0.0-0.3 10^3/uL Basophils # (Auto) 0.1 0.0-0.1 10^3/uL Immature Granulocyte # (Auto) 0.0 0.0-0.1 10^3/uL Sodium Level 139 135-145 MMOL/L Potassium Level 3.7 3.6-5.0 MMOL/L Chloride Level 106 98-107 MMOL/L Carbon Dioxide Level 23 21-32 MMOL/L Anion Gap 10 5-14 MMOL/L Blood Urea Nitrogen 30 H 7-18 MG/DL Creatinine 3.85 H 0.60-1.30 MG/DL Estimat Glomerular Filtration Rate 19 BUN/Creatinine Ratio 8 Glucose Level 147 H 70-105 MG/DL Calcium Level 9.1 8.5-10.1 MG/DL Corrected Calcium 9.0 8.5-10.1 MG/DL Total Bilirubin 0.5 0.1-1.0 MG/DL Aspartate Amino Transf (AST/SGOT) 22 5-34 U/L Alanine Aminotransferase (ALT/SGPT) 21 0-55 U/L Alkaline Phosphatase 154 H 40-136 U/L Total Protein 7.9 6.4-8.2 GM/DL Albumin 4.1 3.2-4.5 GM/DL My Orders Orders - DONNA GIBSON APRN Promethazine Injection (Phenergan Injec (08/16/22 19:45) Morphine Injection (Morphine Injection (08/16/22 19:40) Cbc With Automated Diff (08/16/22 19:40) Comprehensive Metabolic Panel (08/16/22 19:40) Ua Culture If Indicated (08/16/22 19:40) Drug Screen Stat (Urine) (08/16/22 19:44) Urine Culture (08/16/22 19:40) Cefdinir Capsule (Omnicef Capsule) (08/16/22 20:30) Medications Given in ED Current Medications Medications Dose Ordered Sig/Ashley Route Start Time Stop Time Status Last Admin Dose Admin Promethazine HCl 25 mg ONCE ONCE IM 08/16/22 19:45 08/16/22 19:46 DC 08/16/22 19:50 25 MG Vital Signs/I&O 08/16/22 08/16/22 19:36 19:51 Temp 36.2 36.2 Pulse 120 Resp 18 B/P (MAP) 123/87 (99) Pulse Ox 94 O2 Delivery Room Air Capillary Refill : Less Than 3 Seconds Blood Pressure Mean: 99 Departure Impression Primary Impression: Chronic pain Disposition: 01 HOME, SELF-CARE Condition: Stable Departure-Patient Inst. Decision time for Depature: 19:44 Referrals: SEAN MCGREGOR MD (PCP/Family) Primary Care Physician Patient Instructions: CHRONIC PAIN Add. Discharge Instructions: All discharge instructions reviewed with patient and/or family. Voiced understanding. Scripts Cefuroxime Axetil (Cefuroxime) 250 Mg Tablet 250 MG PO BID, #10 TAB Prov: DONNA GIBSON APRN 08/16/22 DONNA GIBSON APRN Aug 16, 2022 19:44
[2022-08-16] MEDS ORDERED: PROMETHAZINE INJ 25 MG/ML (PHENERGAN) AMP IM ONE (19:45)
[2022-08-16 19:57] LABS: BASOPHILS # (AUTO) 0.1 10^3/uL (0.0-0.1); BASOPHILS % (AUTO) 1 % (0-10); EOSINOPHILS # (AUTO) 0.2 10^3/uL (0.0-0.3); EOSINOPHILS % (AUTO) 3 % (0-10); HEMATOCRIT 36 % (40-54); HEMOGLOBIN 11.5 g/dL (13.3-17.7); LYMPHOCYTES # (AUTO) 1.7 10^3/uL (1.0-4.0); LYMPHOCYTES % (AUTO) 19 % (12-44); MEAN CORPUSCULAR HEMOGLOBIN 29 pg (25-34); MEAN CORPUSCULAR HGB CONC 32 g/dL (32-36); MEAN CORPUSCULAR VOLUME 91 fL (80-99); MEAN PLATELET VOLUME 10.1 fL (9.0-12.2); MONOCYTES # (AUTO) 0.5 10^3/uL (0.0-1.0); MONOCYTES % (AUTO) 5 % (0-12); NEUTROPHILS # (AUTO) 6.6 10^3/uL (1.8-7.8); NEUTROPHILS % (AUTO) 72 % (42-75); PLATELET COUNT 215 10^3/uL (130-400); WHITE BLOOD COUNT 9.1 10^3/uL (4.3-11.0)
[2022-08-16 20:01] LABS: BILIRUBIN,URINE NEGATIVE (NEGATIVE); CLARITY,URINE CLEAR; COLOR,URINE YELLOW; GLUCOSE, URINE (UA) TRACE (NEGATIVE); KETONES,URINE NEGATIVE (NEGATIVE); LEUKOCYTE ESTERASE ,URINE TRACE (NEGATIVE); NITRITE,URINE NEGATIVE (NEGATIVE); PROTEIN,URINE 2+ (NEGATIVE)
[2022-08-16 20:14] LABS: BACTERIA,URINE FEW /HPF; RBC,URINE 0-2 /HPF; SQUAMOUS EPITHELIAL CELL,UR 0-2 /HPF
[2022-08-16 20:19] LABS: ALBUMIN 4.1 GM/DL (3.2-4.5); BILIRUBIN,TOTAL 0.5 MG/DL (0.1-1.0); CALCIUM 9.1 MG/DL (8.5-10.1); CREATININE SERUM 3.85 MG/DL (0.60-1.30); POTASSIUM 3.7 MMOL/L (3.6-5.0); TOTAL PROTEIN 7.9 GM/DL (6.4-8.2)
[2022-08-16] MEDS ORDERED: CEFDINIR 300 MG (OMNICEF) CAP PO ONE (20:30)
[2022-08-16] MEDS ORDERED: CEFU250T80 PO (20:30)
[2022-08-16 20:35] LABS: AMPHETAMINE SCREEN, URINE NEGATIVE (NEGATIVE); BARBITURATE SCREEN URINE NEGATIVE (NEGATIVE); BENZODIAZEPINES SCREEN URINE POSITIVE (NEGATIVE); CANNABINOID SCREEN, URINE NEGATIVE (NEGATIVE); COCAINE SCREEN URINE NEGATIVE (NEGATIVE); METHADONE STAT NEGATIVE (NEGATIVE); OPIATE SCREEN URINE POSITIVE (NEGATIVE); OXYCODONE STAT NEGATIVE (NEGATIVE); PROPOXYPHENE STAT NEGATIVE (NEGATIVE); TRICYCLIC ANTIDEPRESSANTS SCRE NEGATIVE (NEGATIVE)
== END 2022-08-16 20:37 | disposition home or self-care (01) ==
LOC: EDUNIT# 19:27 → ER 19:29
DX: G89.29 Other chronic pain (principal); R11.2 Nausea with vomiting, unspecified; Z28.310 Unvaccinated for COVID-19
CPT/HCPCS: 36415; 80053; 80306; 81000; 85025; 87088

== ENCOUNTER 2022-10-06 16:54 | Emergency (ER) | payer MEDICARE, MEDICAID ==
[~2022-10-06] VITALS: Ht 180.3 cm; Wt 81.6 kg
[~2022-10-06 16:54] MED LIST changes: +CEFU250T80 PO
[2022-10-06 17:17] LABS: BILIRUBIN,URINE NEGATIVE (NEGATIVE); CLARITY,URINE CLEAR; COLOR,URINE YELLOW; GLUCOSE, URINE (UA) TRACE (NEGATIVE); KETONES,URINE NEGATIVE (NEGATIVE); LEUKOCYTE ESTERASE ,URINE 1+ (NEGATIVE); NITRITE,URINE POSITIVE (NEGATIVE); PROTEIN,URINE 2+ (NEGATIVE)
[2022-10-06 17:25] LABS: BACTERIA,URINE TRACE /HPF; SQUAMOUS EPITHELIAL CELL,UR 0-2 /HPF
[2022-10-06] MEDS ORDERED: PROMETHAZINE INJ 25 MG/ML (PHENERGAN) AMP IM STA (17:28)
--- NOTE | 2022-10-06 17:37 | ED General ---
General Chief Complaint: Abdominal/GI Problems Stated Complaint: NAUSEA/VOMITING Nursing Triage Note: PT ARRIVED POV WITH COMPLAINTS OF N/V THAT STARTED AT 1400 TODAY. PT THINKS IT IS DUE TO AN ANTIBIOTIC THAT HE IS TAKING. ZOFRAN WAS TAKEN AT 1400 WITH NO RELIEF. History of Present Illness Date Seen by Provider: Oct 06, 2022 Time Seen by Provider: 17:15 Initial Comments 42-year-old male presents with nausea that began approximately 3 hours ago. He was started on Macrobid yesterday for UTI. Hx of Medulary Sponge Kidney. Requesting Promethazine, as Zofran has not worked for him. Timing/Duration: 1-3 Hours Severity: Mild Associated Systoms: Loss of Appetite, Nausea/Vomiting Allergies and Home Medications Allergies Coded Allergies: acetaminophen (Unverified Allergy, Intermediate, 08/15/19) dexamethasone (Unverified Allergy, Intermediate, 08/15/19) fentanyl (Unverified Allergy, Intermediate, 08/15/19) glycopyrrolate (Unverified Allergy, Intermediate, 08/15/19) ketorolac (Unverified Allergy, Intermediate, 08/15/19) metoclopramide (Unverified Allergy, Intermediate, 08/15/19) oxycodone (Unverified Allergy, Intermediate, 08/15/19) prochlorperazine (Unverified Allergy, Intermediate, 08/15/19) promethazine (Unverified Allergy, Intermediate, 08/15/19) suppository route only Patient Home Medication List Home Medication List Reviewed: Yes Cefuroxime Axetil (Cefuroxime) 250 Mg Tablet, 250 MG PO BID Prescribed by: DONNA GIBSON on 08/16/222029 Nitrofurantoin Macrocrystal (Nitrofurantoin) 100 Mg Capsule, 100 MG PO BID Prescribed by: MARVIN WILLIAMSON on 03/13/211913 Ondansetron (Ondansetron Odt) 4 Mg Tab.rapdis, 4 MG PO Q6H PRN for NAUSEA/VOMITING Prescribed by: MARVIN WILLIAMSON on 03/13/211913 Ondansetron (Ondansetron Odt) 8 Mg Tab.rapdis, 8 MG PO Q6H PRN for NAUSEA/VOMITING Prescribed by: DONNA GIBSON on 03/15/21 1602 Review of Systems Review of Systems Constitutional: no symptoms reported, see HPI Gastrointestinal: see HPI, loss of appetite, nausea, vomiting Genitourinary: see HPI, frequency All Other Systems Reviewed Negative Unless Noted: Yes Past Lltnmeg-Zypiju-Cxghde Hx Patient Social History Tobacco Use?: No Substance use?: No Alcohol Use?: No Immunizations Up To Date First/Initial COVID19 Vaccinat: NONE Second COVID19 Vaccination Erlin: NONE Third COVID19 Vaccination Date: NONE Seasonal Allergies Seasonal Allergies: No Past Medical History Surgery/Hospitalization HX: MEDULLARY KIDNEY DX Surgeries: Yes ( LITHOTRIPSY X 3) Renal Respiratory: No Cardiac: No Neurological: No Genitourinary: Yes (MEDULLARY SPONGE KIDNEY) Kidney Stones, UTI-Chronic Gastrointestinal: No Musculoskeletal: Yes (CHRONIC FLANK PAIN ) Endocrine: No HEENT: No Cancer: No Psychosocial: No Integumentary: No Blood Disorders: No Family Medical History Reviewed Nursing Family Hx Physical Exam Vital Signs Vital Signs - First Documented 10/06/22 17:13 Pulse 128 B/P (MAP) 129/76 (93) Pulse Ox 98 O2 Delivery Room Air Capillary Refill : Height, Weight, BMI Height: '" Weight: lbs. oz. kg; 25.00 BMI Method: General Appearance: No Apparent Distress Neck: Full Range of Motion, Normal Inspection, Non Tender, Supple Respiratory: Chest Non Tender, Lungs Clear, Normal Breath Sounds Cardiovascular: Regular Rate, Rhythm, No Edema Gastrointestinal: Normal Bowel Sounds, Non Tender, Soft Back: Normal Inspection, No CVA Tenderness Extremity: Normal Capillary Refill, Normal Inspection, Normal Range of Motion, Non Tender Neurologic/Psychiatric: Alert, Oriented x3, No Motor/Sensory Deficits, Normal Mood/Affect Skin: Normal Color, Warm/Dry Progress/Results/Core Measures Suspected Sepsis SIRS Temperature: Pulse: 128 Respiratory Rate: Blood Pressure 129 /76 Mean: 93 Results/Orders Lab Results Laboratory Tests Test 10/06/22 17:07 Range/Units Urine Color YELLOW Urine Clarity CLEAR Urine pH 7.0 5-9 Urine Specific [place] 1.015 L 1.016-1.022 Urine Protein 2+ H NEGATIVE Urine Glucose (UA) TRACE H NEGATIVE Urine Ketones NEGATIVE NEGATIVE Urine Nitrite POSITIVE H NEGATIVE Urine Bilirubin NEGATIVE NEGATIVE Urine Urobilinogen 0.2 < = 1.0 MG/DL Urine Leukocyte Esterase 1+ H NEGATIVE Urine RBC (Auto) 2+ H NEGATIVE Urine RBC 2-5 H /HPF Urine WBC 10-25 H /HPF Urine Squamous Epithelial Cells 0-2 /HPF Urine Crystals NONE /LPF Urine Bacteria TRACE /HPF Urine Casts NONE /LPF Urine Mucus SMALL H /LPF Urine Culture Indicated YES My Orders Orders - MARVIN WILLIAMSON Ua Culture If Indicated (10/06/22 17:00) Urine Culture (10/06/22 17:07) Promethazine Injection (Phenergan Injec (10/06/22 17:28) Vital Signs/I&O 10/06/22 17:13 Pulse 128 B/P (MAP) 129/76 (93) Pulse Ox 98 O2 Delivery Room Air Capillary Refill : Blood Pressure Mean: 93 Progress Note : Time: 17:15 Progress Note Patient seen and evaluated, will obtain UA. Promethazine 25 mg IM. 1744 patient reports improvement in symptoms will give ice chips and to continue to monitor. 1809 patient taking ice chips no further nausea or vomiting. Discharge instructions and return precautions reviewed. Departure Impression Primary Impression: Urinary tract infection Qualified Codes: N30.01 - Acute cystitis with hematuria Additional Impression: Nausea and vomiting Qualified Codes: R11.14 - Bilious vomiting Disposition: HOME, SELF-CARE Condition: Improved Departure-Patient Inst. Decision time for Depature: 18:15 Referrals: SEAN MCGREGOR MD (PCP/Family) Primary Care Physician Patient Instructions: Urinary Tract Infection, Adult (DC), Nausea and Vomiting, Adult (DC) Add. Discharge Instructions: Clear liquid diet for the next 6 hours then bland diet as tolerated. Increase water intake, 16 ounces every 2 hours while awake. Continue take antibiotics as prescribed. You can obtain the Phenergan tomorrow from the pharmacy and use as needed for nausea. Follow-up with your primary care provider if symptoms are not improving or worsen. All discharge instructions reviewed with patient and/or family. Voiced understanding. Scripts Promethazine HCl (Promethazine Tablet) 25 Mg Tablet 25 MG PO Q8H PRN for NAUSEA/VOMITING, #14 TAB 0 Refills Prov: MARVIN WILLIAMSON 10/06/22 MARVIN WILLIAMSON Oct 06, 2022 17:37
[2022-10-06] MEDS ORDERED: PROM25TA14 PO (18:23)
[2022-10-06 18:31] VITALS: BP 137/91
== END 2022-10-06 18:31 | disposition home or self-care (01) ==
LOC: EDUNIT# 16:54 → ER 16:56
DX: N39.0 Urinary tract infection, site not specified (principal); Z87.442 Personal history of urinary calculi; Z88.8 Allergy status to other drugs, medicaments and biological substances; Z28.310 Unvaccinated for COVID-19
CPT/HCPCS: 81000; 87088; 99284

== ENCOUNTER 2022-10-13 20:07 | Emergency (ER) | payer MEDICARE, MEDICAID ==
[~2022-10-13 20:07] MED LIST changes: +PROM25TA14 PO
[2022-10-13] MEDS ORDERED: PROMETHAZINE INJ 25 MG/ML (PHENERGAN) AMP IM ONE (20:45)
--- NOTE | 2022-10-13 20:47 | ED GI ---
General Chief Complaint: Abdominal/GI Problems Stated Complaint: NAUSEA/VOMITING Nursing Triage Note: PT AMBULATORY INTO ER WITH COMPLAINT OF VOMITING 3 X'S. PATIENT STATES THAT HE VOMITIED AFTER TAKING HIS MACROBID FOR HIS UTI. PATIENT STILL COMPLAINING OF NAUSEA. NORMAL BM, NO OTHER SYMPTOMS. (ALEXANDRA ALAMO APRN) History of Present Illness Date Seen by Provider: Oct 13, 2022 Time Seen by Provider: 20:35 Initial Comments Patient is a 42-year-old male who presents to the emergency department after acute onset of vomiting earlier today after he took his dose of Macrobid. He has been on the Macrobid since Friday for UTI. Patient states he is still having nausea. No diarrhea. No fever. No abdominal pain. Vomiting is nonbilious and nonbloody per his report. He states he has antiemetics at home but states he did not want to take them as he is throwing up. (ALEXANDRA ALAMO APRN) Allergies and Home Medications Allergies Coded Allergies: acetaminophen (Unverified Allergy, Intermediate, 08/15/19) dexamethasone (Unverified Allergy, Intermediate, 08/15/19) fentanyl (Unverified Allergy, Intermediate, 08/15/19) glycopyrrolate (Unverified Allergy, Intermediate, 08/15/19) ketorolac (Unverified Allergy, Intermediate, 08/15/19) metoclopramide (Unverified Allergy, Intermediate, 08/15/19) oxycodone (Unverified Allergy, Intermediate, 08/15/19) prochlorperazine (Unverified Allergy, Intermediate, 08/15/19) promethazine (Unverified Allergy, Intermediate, 08/15/19) suppository route only Patient Home Medication List Home Medication List Reviewed: Yes (ALEXANDRA ALAMO TRANSMISSION REBUILDER) Cefuroxime Axetil (Cefuroxime) 250 Mg Tablet, 250 MG PO BID Prescribed by: DONNA GIBSON on 08/16/222029 Nitrofurantoin Macrocrystal (Nitrofurantoin) 100 Mg Capsule, 100 MG PO BID Prescribed by: MARVIN WILLIAMSON on 03/13/211913 Ondansetron (Ondansetron Odt) 4 Mg Tab.rapdis, 4 MG PO Q6H PRN for NAUSEA/VOMITING Prescribed by: MARVIN WILLIAMSON on 5/4/21 1914 Ondansetron (Ondansetron Odt) 8 Mg Tab.rapdis, 8 MG PO Q6H PRN for NAUSEA/VOMITING Prescribed by: DONNA GIBSON on 03/15/21 1602 Promethazine HCl (Promethazine Tablet) 25 Mg Tablet, 25 MG PO Q8H PRN for NAUSEA/VOMITING Prescribed by: MARVIN WILLIAMSON on 10/06/22 1823 Review of Systems Review of Systems Constitutional: no symptoms reported EENTM: No Symptoms Reported Respiratory: No Symptoms Reported Cardiovascular: No Symptoms Reported Gastrointestinal: See HPI, Nausea, Vomiting Genitourinary: No Symptoms Reported Musculoskeletal: no symptoms reported Skin: no symptoms reported Psychiatric/Neurological: No Symptoms Reported Endocrine: No Symptoms Reported Hematologic/Lymphatic: No Symptoms Reported (ALEXANDRA ALAMO APRN) Past Ypufptq-Zeivok-Jysiyi Hx Patient Social History Tobacco Use?: No Use of E-Cig and/or Vaping dev: No Substance use?: No Alcohol Use?: No Pt feels they are or have been: No (ALEXANDRA ALAMO APRN) Immunizations Up To Date Influenza Vaccine Up-to-Date: No; Not Current First/Initial COVID19 Vaccinat: NONE Second COVID19 Vaccination Erlin: NONE Third COVID19 Vaccination Date: NONE (ALEXANDRA ALAMO APRN) Seasonal Allergies Seasonal Allergies: No (ALEXANDRA ALAMO APRN) Past Medical History Surgery/Hospitalization HX: MEDULLARY KIDNEY DX Surgeries: Yes ( LITHOTRIPSY X 3) Renal Respiratory: No Cardiac: No Neurological: No Genitourinary: Yes (MEDULLARY SPONGE KIDNEY) Kidney Stones, UTI-Chronic Gastrointestinal: No Musculoskeletal: Yes (CHRONIC FLANK PAIN ) Endocrine: No HEENT: No Cancer: No Psychosocial: No Integumentary: No Blood Disorders: No (ALEXANDRA ALAMO APRN) Physical Exam Vital Signs Vital Signs - First Documented 10/13/22 20:12 Temp 37.2 Pulse 100 Resp 18 B/P (MAP) 115/71 (86) Pulse Ox 97 O2 Delivery Room Air (JUANA LOW MD) Vital Signs Capillary Refill : Less Than 3 Seconds (ALEXANDRA ALAMO APRN) Height/Weight/BMI Height: '" Weight: lbs. oz. kg; 25.00 BMI Method: General Appearance: WD/WN, no apparent distress HEENT: PERRL/EOMI, normal ENT inspection, TMs normal, pharynx normal Neck: non-tender, full range of motion, supple, normal inspection Respiratory: chest non-tender, lungs clear, normal breath sounds, no respiratory distress, no accessory muscle use Cardiovascular: regular rate, rhythm Gastrointestinal: normal bowel sounds, non tender, soft Neurologic/Psychiatric: normal mood/affect, oriented x 3 Skin: normal color, warm/dry (ALEXANDRA ALAMO APRN) Progress/Results/Core Measures Results/Orders Medications Given in ED Current Medications Medications Dose Ordered Sig/Ashley Route Start Time Stop Time Status Last Admin Dose Admin Promethazine HCl 25 mg ONCE ONCE IM 10/13/22 20:45 10/13/22 20:46 DC 10/13/22 20:53 25 MG (JUANA LOW MD) Vital Signs/I&O 10/13/22 10/13/22 20:12 21:14 Temp 37.2 Pulse 100 Resp 18 B/P (MAP) 115/71 (86) 114/81 Pulse Ox 97 O2 Delivery Room Air (JUANA LOW MD) Blood Pressure Mean: 86 Progress Progress Note : Progress Note Patient is nontoxic and well-hydrated on exam. Abdominal exam is benign. Patient was given 25 mg of intramuscular Phenergan. Will discharge home with recommendations for supportive care and follow-up with PCP. Return precautions for symptomology discussed. Patient verbalized understanding (ALEXANDRA ALAMO APRN) Departure Impression Primary Impression: Nausea and vomiting Qualified Codes: R11.2 - Nausea with vomiting, unspecified Disposition: 01 HOME, SELF-CARE Condition: Stable Departure-Patient Inst. Decision time for Depature: 20:45 (ALEXANDRA ALAMO APRN) Referrals: SEAN MCGREGOR MD (PCP/Family) Primary Care Physician Patient Instructions: Nausea and Vomiting, Adult (DC) ATTENDING PHYSICIAN NOTE: I was physically present as attending physician in the emergency department during the care of this patient, but I was not directly involved in the decision making or delivery of care for this patient. (JUANA LOW MD) ALEXANDRA ALAMO APRN Oct 13, 2022 20:47 JUANA LOW MD Oct 14, 2022 05:36
[2022-10-13 21:14] VITALS: BP 114/81
== END 2022-10-13 21:14 | disposition home or self-care (01) ==
LOC: EDUNIT# 20:07 → ER 20:09
DX: R11.2 Nausea with vomiting, unspecified (principal); Z28.310 Unvaccinated for COVID-19
CPT/HCPCS: 99284

== ENCOUNTER 2022-10-16 20:48 | Emergency (ER) | payer MEDICARE, MEDICAID ==
[2022-10-16] MEDS ORDERED: RX-ONDANSETRON 4 MG ODT (ZOFRAN) PPK #4 PO STA (21:44)
[2022-10-16] MEDS ORDERED: PROMETHAZINE INJ 25 MG/ML (PHENERGAN) AMP IM ONE (21:45)
--- NOTE | 2022-10-16 21:48 | ED Abdominal Pain ---
General Chief Complaint: Abdominal/GI Problems Stated Complaint: VOMITING Nursing Triage Note: PT AMB TO ED BY POV WITH C/O N/V BEGINNING 1900 TODAY. PT REPORTS HE FELT FINE AND HAD SUDDEN ONSET N/V, DENIES ABD PAIN OR DIARRHEA. PT IS ON ANTIBIOTIC FOR UTI, BUT REPORTS HE TRIES TO TAKE IT WITH A MEAL TO AVOID STOMACH UPSET. Source of Information: Patient Exam Limitations: No Limitations History of Present Illness Date Seen by Provider: Oct 16, 2022 Time Seen by Provider: 21:46 Allergies and Home Medications Allergies Coded Allergies: acetaminophen (Unverified Allergy, Intermediate, 08/15/19) dexamethasone (Unverified Allergy, Intermediate, 08/15/19) fentanyl (Unverified Allergy, Intermediate, 08/15/19) glycopyrrolate (Unverified Allergy, Intermediate, 08/15/19) ketorolac (Unverified Allergy, Intermediate, 08/15/19) metoclopramide (Unverified Allergy, Intermediate, 08/15/19) oxycodone (Unverified Allergy, Intermediate, 08/15/19) prochlorperazine (Unverified Allergy, Intermediate, 08/15/19) promethazine (Unverified Allergy, Intermediate, 08/15/19) suppository route only Patient Home Medication List Cefuroxime Axetil (Cefuroxime) 250 Mg Tablet, 250 MG PO BID Prescribed by: DONNA GIBSON on 08/16/222029 Nitrofurantoin Macrocrystal (Nitrofurantoin) 100 Mg Capsule, 100 MG PO BID Prescribed by: MARVIN WILLIAMSON on 03/13/211913 Ondansetron (Ondansetron Odt) 4 Mg Tab.rapdis, 4 MG PO Q6H PRN for NAUSEA/VOMITING Prescribed by: MARVIN WILLIAMSON on 03/13/211913 Ondansetron (Ondansetron Odt) 8 Mg Tab.rapdis, 8 MG PO Q6H PRN for NAUSEA/VOMITING Prescribed by: DONNA GIBSON on 03/15/21 160 Promethazine HCl (Promethazine Tablet) 25 Mg Tablet, 25 MG PO Q8H PRN for NAUSEA/VOMITING Prescribed by: MARVIN WILLIAMSON on 10/06/22 1823 Past Vhnvktw-Ikulqy-Lfjbet Hx Patient Social History Tobacco Use?: No Substance use?: No Alcohol Use?: No Immunizations Up To Date Influenza Vaccine Up-to-Date: No; Not Current First/Initial COVID19 Vaccinat: NONE Second COVID19 Vaccination Erlin: NONE Third COVID19 Vaccination Date: NONE Seasonal Allergies Seasonal Allergies: No Past Medical History Surgery/Hospitalization HX: CKD, ESRD Surgeries: Yes ( LITHOTRIPSY X 3) Renal Respiratory: No Cardiac: No Neurological: No Genitourinary: Yes (MEDULLARY SPONGE KIDNEY) Kidney Stones, UTI-Chronic Gastrointestinal: No Musculoskeletal: Yes (CHRONIC FLANK PAIN ) Endocrine: No HEENT: No Cancer: No Psychosocial: No Integumentary: No Blood Disorders: No Physical Exam Vital Signs Vital Signs - First Documented 10/16/22 21:12 Temp 37.1 Pulse 104 Resp 18 B/P (MAP) 116/73 (87) Pulse Ox 100 O2 Delivery Room Air Capillary Refill : Less Than 3 Seconds Height/Weight/BMI Height: '" Weight: lbs. oz. 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 Decision time for Depature: 21:46 Referrals: SEAN MCGREGOR MD (PCP/Family) Primary Care Physician Patient Instructions: Nausea and Vomiting, Adult ED Add. Discharge Instructions: Plan: 1. Continue to drink plenty of fluids to stay hydrated. 2. Use Zofran 4mg by mouth every 6 hours as needed for nausea and vomiting. You can also use your phenergan as directed. 3. Return for any new, concerning, or worsening symptoms. All discharge instructions reviewed with patient and/or family. Voiced understwalter yoon. GENE FUENTES APRN Oct 16, 2022 21:48
[2022-10-16 22:11] VITALS: BP 116/73
== END 2022-10-16 22:11 | disposition home or self-care (01) ==
LOC: EDUNIT# 20:48 → ER 20:49
DX: R11.2 Nausea with vomiting, unspecified (principal); N39.0 Urinary tract infection, site not specified; Z28.310 Unvaccinated for COVID-19
CPT/HCPCS: 99284

== ENCOUNTER 2022-10-19 20:43 | Emergency (ER) | payer MEDICARE, MEDICAID ==
[~2022-10-19] VITALS: Ht 180.3 cm; Wt 77.1 kg
--- NOTE | 2022-10-19 20:58 | ED GI ---
General Chief Complaint: Abdominal/GI Problems Stated Complaint: VOMITING/NAUSEA Nursing Triage Note: PT AMB TO RM 9 W C/O N/V SX 1800 THIS PM. PT A&OX4. Source of Information: Patient Exam Limitations: No Limitations History of Present Illness Date Seen by Provider: Oct 19, 2022 Time Seen by Provider: 20:50 Initial Comments Patient is a 42-year-old male who presents to the emergency department for evaluation of nausea and vomiting that began earlier today after he took his dose of Macrobid. Patient has been on Macrobid for an extended period of time for treatment of UTI. He states it typically makes him nauseous. He states he has been taking his ODT Zofran without improvement in the nausea/vomiting. He has been seen here multiple times for the symptoms and typically improves after a dose of intramuscular Phenergan. He states he took his last dose of Macrobid today. Denies any blood in the vomit. Denies any diarrhea. No fever. Allergies and Home Medications Allergies Coded Allergies: acetaminophen (Unverified Allergy, Intermediate, 08/15/19) dexamethasone (Unverified Allergy, Intermediate, 08/15/19) fentanyl (Unverified Allergy, Intermediate, 08/15/19) glycopyrrolate (Unverified Allergy, Intermediate, 08/15/19) ketorolac (Unverified Allergy, Intermediate, 08/15/19) metoclopramide (Unverified Allergy, Intermediate, 08/15/19) oxycodone (Unverified Allergy, Intermediate, 08/15/19) prochlorperazine (Unverified Allergy, Intermediate, 08/15/19) promethazine (Unverified Allergy, Intermediate, 08/15/19) suppository route only Patient Home Medication List Home Medication List Reviewed: Yes Cefuroxime Axetil (Cefuroxime) 250 Mg Tablet, 250 MG PO BID Prescribed by: DONNA GIBSON on 08/16/222029 Nitrofurantoin Macrocrystal (Nitrofurantoin) 100 Mg Capsule, 100 MG PO BID Prescribed by: MARVIN WILLIAMSON on 03/13/211913 Ondansetron (Ondansetron Odt) 4 Mg Tab.rapdis, 4 MG PO Q6H PRN for NAUSEA/VOMITING Prescribed by: MARVIN WILLIAMSON on 5/4/21 1914 Ondansetron (Ondansetron Odt) 8 Mg Tab.rapdis, 8 MG PO Q6H PRN for NAUSEA/VOMITING Prescribed by: DONNA GIBSON on 03/15/21 1602 Promethazine HCl (Promethazine Tablet) 25 Mg Tablet, 25 MG PO Q8H PRN for NAUSEA/VOMITING Prescribed by: MARVIN WILLIAMSON on 10/06/22 1823 Review of Systems Review of Systems Constitutional: no symptoms reported EENTM: No Symptoms Reported Respiratory: No Symptoms Reported Gastrointestinal: See HPI, Nausea, Vomiting Genitourinary: No Symptoms Reported Musculoskeletal: no symptoms reported Skin: no symptoms reported Psychiatric/Neurological: No Symptoms Reported Endocrine: No Symptoms Reported Hematologic/Lymphatic: No Symptoms Reported Past Ujtnrfw-Wbzclg-Rnjjuc Hx Patient Social History Tobacco Use?: No Use of E-Cig and/or Vaping dev: No Substance use?: No Alcohol Use?: No Immunizations Up To Date Influenza Vaccine Up-to-Date: No; Not Current First/Initial COVID19 Vaccinat: NONE Second COVID19 Vaccination Erlin: NONE Third COVID19 Vaccination Date: NONE COVID19 Vaccine Auditor Appraiser: NONE Seasonal Allergies Seasonal Allergies: No Past Medical History Surgery/Hospitalization HX: CKD, ESRD Surgeries: Yes ( LITHOTRIPSY X 3) Renal Respiratory: No Cardiac: No Neurological: No Genitourinary: Yes (MEDULLARY SPONGE KIDNEY) Kidney Stones, UTI-Chronic Gastrointestinal: No Musculoskeletal: Yes (CHRONIC FLANK PAIN ) Endocrine: No HEENT: No Cancer: No Psychosocial: No Integumentary: No Blood Disorders: No Physical Exam Vital Signs Vital Signs - First Documented 10/19/22 20:48 Temp 36.8 Pulse 116 Resp 20 B/P (MAP) 125/80 (95) Pulse Ox 98 O2 Delivery Room Air Capillary Refill : Less Than 3 Seconds Height/Weight/BMI Height: '" Weight: lbs. oz. kg; 23.00 BMI Method: General Appearance: WD/WN, no apparent distress HEENT: PERRL/EOMI, normal ENT inspection, TMs normal, pharynx normal Neck: non-tender, full range of motion, supple, normal inspection Respiratory: chest non-tender, lungs clear, normal breath sounds, no respiratory distress, no accessory muscle use Cardiovascular: regular rate, rhythm Gastrointestinal: normal bowel sounds, non tender, soft Extremities: normal range of motion, non-tender Neurologic/Psychiatric: no motor/sensory deficits, alert, normal mood/affect, oriented x 3 Skin: normal color, warm/dry Progress/Results/Core Measures Results/Orders My Orders Orders - ALEXANDRA ALAMO APRN Promethazine Injection (Phenergan Injec (10/19/22 21:00) Vital Signs/I&O 10/19/22 10/19/22 20:48 21:05 Temp 36.8 36.8 Pulse 116 116 Resp 20 20 B/P (MAP) 125/80 (95) 125/80 Pulse Ox 98 98 O2 Delivery Room Air Room Air 2 Blood Pressure Mean: 95 Progress Progress Note : Progress Note Patient is nontoxic and well-hydrated on exam. Vital signs are reassuring. Abdominal exam is without focal provocation of pain with palpation or rigidity/distention. Patient was given a dose of intramuscular promethazine. He was discharged home with recommendations for supportive care and close follow-up with PCP. Return precautions for urgent symptomology discussed. Patient verbalized understanding. Departure Impression Primary Impression: Nausea & vomiting Qualified Codes: R11.2 - Nausea with vomiting, unspecified Disposition: 01 HOME, SELF-CARE Condition: Stable Departure-Patient Inst. Decision time for Depature: 20:55 Referrals: SEAN MCGREGOR MD (PCP/Family) Primary Care Physician Patient Instructions: Nausea and Vomiting, Adult ED ALEXANDRA ALAMO APRN Oct 19, 2022 20:58
[2022-10-19] MEDS ORDERED: PROMETHAZINE INJ 25 MG/ML (PHENERGAN) AMP IM ONE (21:00)
[2022-10-19 21:05] VITALS: BP 125/80
== END 2022-10-19 21:06 | disposition home or self-care (01) ==
LOC: EDUNIT# 20:43 → ER 20:45
DX: R11.2 Nausea with vomiting, unspecified (principal); Z28.310 Unvaccinated for COVID-19
CPT/HCPCS: 99284

== ENCOUNTER 2022-10-26 20:26 | Emergency (ER) | payer MEDICARE, MEDICAID ==
[~2022-10-26] VITALS: Ht 180.3 cm; Wt 83.0 kg
--- NOTE | 2022-10-26 20:39 | ED GI ---
General Chief Complaint: Abdominal/GI Problems Stated Complaint: NAUSEA/VOMITING Source of Information: Patient, Old Records History of Present Illness Date Seen by Provider: Oct 26, 2022 Time Seen by Provider: 20:30 Initial Comments PT ARRIVES VIA POV FROM HOME C/O NAUSEA AND VOMITING SINCE 1830 TONIGHT STATES HE HAS VOMITED X 4 HAD DIARRHEA ONE TIME "A LITTLE BIT" NO ABDOMINAL PAIN NO URINARY SYMPTOMS AND VOIDING A NORMAL AMOUNT NO FEVER, PER PT--TEMP IS 100 ON ARRIVAL HERE ATE CEREAL WITH MILK AND A BANANA AROUND 1800 TONIGHT. STATES HE FELT FINE EARLIER TODAY PT DENIES HISTORY OF SIMILAR, HOWEVER, THIS IS PT'S 4TH VISIT HERE SINCE 10/13/22 FOR THIS EXACT SAME COMPLAINT OF NAUSEA AND VOMITING HE HAS ZOFRAN AT HOME, AND TOOK 1, WITH A LITTLE IMPROVEMENT. PT WAS ON MACROBID FOR UTI, DX 10/06/22--WAS SEEN HERE IN THIS ER LAST DOSE WAS 1 WEEK AGO. PT WITH A MULTITUDE OF VISITS--MOST FOR PAIN COMPLAINTS PT HAS DX OF MEDULLARY SPONGE KIDNEY AND HAS HISTORY OF KIDNEY STONES AND CHRONIC RENAL FAILURE, WITH BASELINE CREATININE OF AROUND 4. HE IS NOT ON DIALYSIS. HE STATES THAT HE HAD A ROUTINE EXAM DONE ON FRIDAY. NO MEDICATION CHANGES HE STATES THEY CHECKED HIS URINE, BUT NEVER TOLD HIM THE RESULTS. PT HAD FLU SHOT ON FRIDAY OF THIS WEEK HE HAS NOT HAD ANY COVID VACCINES PT TAKES MORPHINE THREE TIMES A DAY EVERY DAY FOR CHRONIC FLANK PAIN PCP: DR. DAVID MCGREGOR AT [facility] CHORAL DIRECTOR--DR. Henry" IN [place] Allergies and Home Medications Allergies Coded Allergies: acetaminophen (Unverified Allergy, Intermediate, 08/15/19) dexamethasone (Unverified Allergy, Intermediate, 08/15/19) fentanyl (Unverified Allergy, Intermediate, 08/15/19) glycopyrrolate (Unverified Allergy, Intermediate, 08/15/19) ketorolac (Unverified Allergy, Intermediate, 08/15/19) metoclopramide (Unverified Allergy, Intermediate, 08/15/19) oxycodone (Unverified Allergy, Intermediate, 08/15/19) prochlorperazine (Unverified Allergy, Intermediate, 08/15/19) promethazine (Unverified Allergy, Intermediate, 08/15/19) suppository route only Patient Home Medication List Home Medication List Reviewed: Yes Cefdinir (Cefdinir) 300 Mg Capsule, 300 MG PO BID Prescribed by: JIE WATSON on 10/26/222218 Cefuroxime Axetil (Cefuroxime) 250 Mg Tablet, 250 MG PO BID Prescribed by: DONNA GIBSON on 08/16/222029 Nitrofurantoin Macrocrystal (Nitrofurantoin) 100 Mg Capsule, 100 MG PO BID Prescribed by: MARVIN WILLIAMSON on 03/13/211913 Ondansetron (Ondansetron Odt) 4 Mg Tab.rapdis, 4 MG PO Q6H PRN for NAUSEA/VOMITING Prescribed by: MARVIN WILLIAMSON on 03/13/211913 Ondansetron (Ondansetron Odt) 8 Mg Tab.rapdis, 8 MG PO Q6H PRN for NAUSE A/VOMITING Prescribed by: DONNA GIBSON on 03/15/21 160 Ondansetron (Ondansetron Odt) 8 Mg Tab.rapdis, 8 MG PO Q6H Prescribed by: JIE WATSON on 10/26/222218 Pantoprazole Sodium (Protonix) 40 Mg Tablet.dr, 40 MG PO DAILY Prescribed by: JIE WATSON on 10/26/222218 Promethazine HCl (Promethazine Tablet) 25 Mg Tablet, 25 MG PO Q8H PRN for NAUSEA/VOMITING Prescribed by: MARVIN WILLIAMSON on 10/06/221822 Promethazine HCl (Promethazine Tablet) 25 Mg Tablet, 25 MG PO Q8H PRN for NAUSEA/VOMITING Prescribed by: JIE WATSON on 10/26/222218 Review of Systems Review of Systems Constitutional: see HPI EENTM: No Symptoms Reported Respiratory: No Symptoms Reported Cardiovascular: No Symptoms Reported Gastrointestinal: See HPI; Denies Abdominal Pain; Diarrhea, Nausea, Vomiting Genitourinary: No Symptoms Reported Musculoskeletal: no symptoms reported Skin: no symptoms reported Psychiatric/Neurological: Anxiety Endocrine: No Symptoms Reported Hematologic/Lymphatic: No Symptoms Reported Past Tvarfbz-Grjcft-Qkzjya Hx Patient Social History Tobacco Use?: No Use of E-Cig and/or Vaping dev: No Substance use?: No Alcohol Use?: No Immunizations Up To Date First/Initial COVID19 Vaccinat: NONE Second COVID19 Vaccination Erlin: NONE Third COVID19 Vaccination Date: NONE Seasonal Allergies Seasonal Allergies: No Past Medical History Surgery/Hospitalization HX: CKD, ESRD Surgeries: Yes ( LITHOTRIPSY X 3) Renal Respiratory: No Cardiac: No Neurological: No Genitourinary: Yes (MEDULLARY SPONGE KIDNEY; KIDNEY STONES; CHRONIC RENAL FAILURE-NO DIALYSIS) Kidney Stones, Renal Failure, UTI-Chronic Gastrointestinal: No Musculoskeletal: Yes (CHRONIC FLANK PAIN ) Endocrine: No HEENT: No Cancer: No Psychosocial: No Integumentary: No Blood Disorders: No Physical Exam Vital Signs Vital Signs - First Documented 10/26/22 20:30 Temp 37.8 Pulse 127 Resp 18 B/P (MAP) 123/81 (95) Pulse Ox 97 O2 Delivery Room Air Capillary Refill : Height/Weight/BMI Height: '" Weight: lbs. oz. kg; 23.00 BMI Method: General Appearance: WD/WN, no apparent distress, other (ANXIOUS, HYPERVENTILATING, CONSTANT MOVEMENTS. 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 II-XII nml as tested, no motor/sensory deficits, alert, oriented x 3, other (ANXIOUS) Skin: normal color, warm/dry Focused Exam Lactate Level 10/26/22 21:02: Lactic Acid Level 1.23 Lactic Acid Level Laboratory Tests Test 10/26/22 21:02 Lactic Acid Level 1.23 MMOL/L (0.50-2.00) Progress/Results/Core Measures Results/Orders Lab Results Laboratory Tests Test 10/26/22 20:42 10/26/22 21:02 10/26/22 21:05 10/26/22 21:36 Range/Units White Blood Count 8.7 4.3-11.0 10^3/uL Red Blood Count 3.79 L 4.30-5.52 10^6/uL Hemoglobin 11.0 L 13.3-17.7 g/dL Hematocrit 34 L 40-54 % Mean Corpuscular Volume 90 80-99 fL Mean Corpuscular Hemoglobin 29 25-34 pg Mean Corpuscular Hemoglobin Concent 32 32-36 g/dL Red Cell Distribution Width 13.8 10.0-14.5 % Platelet Count 235 130-400 10^3/uL Mean Platelet Volume 10.6 9.0-12.2 fL Immature Granulocyte % (Auto) 0 % Neutrophils (%) (Auto) 65 42-75 % Lymphocytes (%) (Auto) 27 12-44 % Monocytes (%) (Auto) 5 0-12 % Eosinophils (%) (Auto) 3 0-10 % Basophils (%) (Auto) 1 0-10 % Neutrophils # (Auto) 5.6 1.8-7.8 10^3/uL Lymphocytes # (Auto) 2.3 1.0-4.0 10^3/uL Monocytes # (Auto) 0.5 0.0-1.0 10^3/uL Eosinophils # (Auto) 0.2 0.0-0.3 10^3/uL Basophils # (Auto) 0.1 0.0-0.1 10^3/uL Immature Granulocyte # (Auto) 0.0 0.0-0.1 10^3/uL Sodium Level 139 135-145 MMOL/L Potassium Level 3.7 3.6-5.0 MMOL/L Chloride Level 105 98-107 MMOL/L Carbon Dioxide Level 22 21-32 MMOL/L Anion Gap 12 5-14 MMOL/L Blood Urea Nitrogen 32 H 7-18 MG/DL Creatinine 4.06 H 0.60-1.30 MG/DL Estimat Glomerular Filtration Rate 18 BUN/Creatinine Ratio 8 Glucose Level 143 H 70-105 MG/DL Calcium Level 8.9 8.5-10.1 MG/DL Corrected Calcium 8.8 8.5-10.1 MG/DL Magnesium Level 2.3 1.6-2.4 MG/DL Total Bilirubin 0.5 0.1-1.0 MG/DL Aspartate Amino Transf (AST/SGOT) 111 H 5-34 U/L Alanine Aminotransferase (ALT/SGPT) 112 H 0-55 U/L Alkaline Phosphatase 209 H 40-136 U/L Total Protein 8.2 6.4-8.2 GM/DL Albumin 4.1 3.2-4.5 GM/DL Amylase Level 139 H 25-125 U/L Lipase 82 H 8-78 U/L Procalcitonin 0.37 H <0.10 NG/ML Thyroid Stimulating Hormone (TSH) 4.79 0.35-4.94 UIU/ML Serum Alcohol < 10 <10 MG/DL Hepatitis A IgM Antibody Non-Reactive Non-Reactive Hepatitis B Surface Antigen Non-Reactive Non-Reactive Hepatitis B Core IgM Antibody Non-Reactive Non-Reactive Hepatitis C Antibody Non-Reactive Non-Reactive Lactic Acid Level 1.23 0.50-2.00 MMOL/L Urine Color YELLOW Urine Clarity CLEAR Urine pH 6.5 5-9 Urine Specific Amasa 1.020 1.016-1.022 Urine Protein 2+ H NEGATIVE Urine Glucose (UA) TRACE H NEGATIVE Urine Ketones NEGATIVE NEGATIVE Urine Nitrite POSITIVE H NEGATIVE Urine Bilirubin NEGATIVE NEGATIVE Urine Urobilinogen 0.2 < = 1.0 MG/DL Urine Leukocyte Esterase 1+ H NEGATIVE Urine RBC (Auto) 2+ H NEGATIVE Urine RBC 0-2 /HPF Urine WBC 5-10 H /HPF Urine Squamous Epithelial Cells RARE /HPF Urine Crystals NONE /LPF Urine Bacteria FEW H /HPF Urine Casts NONE /LPF Urine Mucus NEGATIVE /LPF Urine Culture Indicated YES Urine Opiates Screen POSITIVE H NEGATIVE Urine Oxycodone Screen NEGATIVE NEGATIVE Urine Methadone Screen NEGATIVE NEGATIVE Urine Propoxyphene Screen NEGATIVE NEGATIVE Urine Barbiturates Screen NEGATIVE NEGATIVE Ur Tricyclic Antidepressants Screen NEGATIVE NEGATIVE Urine Phencyclidine Screen NEGATIVE NEGATIVE Urine Amphetamines Screen NEGATIVE NEGATIVE Urine Methamphetamines Screen NEGATIVE NEGATIVE Urine Benzodiazepines Screen POSITIVE H NEGATIVE Urine Cocaine Screen NEGATIVE NEGATIVE Urine Cannabinoids Screen NEGATIVE NEGATIVE Influenza Type A (RT-PCR) Not Detected Not Detecte Influenza Type B (RT-PCR) Not Detected Not Detecte SARS-CoV-2 RNA (RT-PCR) Not Detected Not Detecte Micro Results Microbiology 10/26/22 Urine Culture - Final, Complete Staphylococcus epidermidis My Orders Orders - JIE WATSON DO Ed Iv/Invasive Line Start (10/26/22 20:35) Monitor-Rhythm Ecg Trace Only (10/26/22 20:35) Alcohol (10/26/22 20:35) Amylase (10/26/22 20:35) Cbc With Automated Diff (10/26/22 20:35) Comprehensive Metabolic Panel (10/26/22 20:35) Drug Screen Stat (Urine) (10/26/22 20:35) Lactic Acid Analyzer (10/26/22 20:35) Lipase (10/26/22 20:35) Magnesium (10/26/22 20:35) Procalcitonin (Pct) (10/26/22 20:35) Thyroid Stimulating Hormone (10/26/22 20:35) Ua Culture If Indicated (10/26/22 20:35) Ed Iv/Invasive Line Start (10/26/22 20:35) Lactated Ringers (Lr 1000 Ml Iv Solution (10/26/22 20:45) Ondansetron Injection (Zofran Injectio (10/26/22 20:45) Hepatitis Panel Acute (10/26/22 21:20) Ed Iv/Invasive Line Start (10/26/22 21:20) Lactated Ringers (Lr 1000 Ml Iv Solution (10/26/22 21:30) Ct Abdomen/Pelvis Wo (10/26/22 21:20) Promethazine Injection (Phenergan Injec (10/26/22 21:30) Urine Culture (10/26/22 21:05) Covid 19 Inhouse Test (10/26/22 21:33) Influenza A And B By Pcr (10/26/22 21:33) Isolation Central Supply Req (10/26/22 21:33) Ceftriaxone 1 Gm Pre-Mix (Rocephin 1 Gm (10/26/22 21:45) Ceftriaxone (Rocephin) (10/26/22 22:30) Lidocaine 1% Inj 20 Ml (Xylocaine 1% Inj (10/26/22 22:30) Medications Given in ED Vital Signs/I&O 10/26/22 10/26/22 20:30 23:05 Temp 37.8 Pulse 127 105 Resp 18 16 B/P (MAP) 123/81 (95) 123/73 Pulse Ox 97 99 O2 Delivery Room Air Room Air Progress Progress Note : Progress Note GIVEN: -IV FLUIDS -ZOFRAN--MINIMAL RELIEF. -ROCEPHIN--GIVEN IM, PT PULLED OUT IV BEFORE ROCEPHIN IV COULD BE GIVEN. PT REQUESTS A SHOT OF PHENERGAN. DISCUSSED WITH HIM THAT PHENERGAN IS ON HIS ALLERGY LIST--HE STATES HE IS ONLY ALLERGIC TO THE PHENERGAN SUPPOSITORY, BUT NOT THE SHOT. GIVEN PHENERGAN IM PT DENIES TAKING ANY TYLENOL OR IBUPROFEN OR ANY OTHER MEDICATIONS OTHER THAN WHAT HE IS PRESCRIBED, AND DENIES TAKING MORE THAN PRESCRIBED. NO DETERIORATION OF PT'S CONDITION DURING ER STAY REVIEWED PREVIOUS RECORDS, PT HAS ONLY HAD ER VISITS, NO ADMITS HERE. REVIEWED TEST RESULTS, ANTICIPATED COURSE, NEED FOR FOLLOW UP AND RETURN PRECAUTIONS Diagnostic Imaging Comments CT ABDOMEN/PELVIS--PER RADIOLOGIST REPORT AT 215 FINDINGS: Lower chest: The lung bases are clear. No pericardial or pleural effusion. Peritoneum: No free intraperitoneal air or fluid. Liver and biliary system: Unenhanced liver is normal. Cholecystectomy. Spleen and Pancreas: Spleen is normal. Unenhanced pancreas is grossly normal. Adrenals: Normal. tract: Stable atrophic kidneys with extensive calcifications within the medulla likely due to nephrocalcinosis. Right renal cyst is unchanged. No obstructive uropathy or ureteral stone. Urinary bladder is normally distended. Prostate is not enlarged. GI tract: Stomach is filled with fluid and food debris. No bowel obstruction. No pericolonic inflammatory changes. Normal appendix. Vasculature and Lymph nodes: Normal caliber aorta. No abdominal or pelvic lymphadenopathy. Musculoskeletal: No concerning osseous lesion. IMPRESSION: 1. Stable atrophic kidneys with medullary nephrocalcinosis. No obstructive uropathy. 2. No bowel obstruction, colitis or diverticulitis. Reviewed: Reviewed by Me Departure Impression Primary Impression: Urinary tract infection Additional Impressions: Nausea & vomiting Chronic renal failure Elevated liver enzymes Medullary sponge kidney Disposition: HOME, SELF-CARE Condition: Improved Departure-Patient Inst. Decision time for Depature: 22:14 Referrals: SEAN MCGREGOR MD (PCP/Family) Primary Care Physician Patient Instructions: Chronic Kidney Disease (DC), Liver Function Test, Nausea and Vomiting, Adult ED, Urinary Tract Infection, Adult ED Add. Discharge Instructions: HOME, REST TAKE ONLY YOUR PRESCRIBED MEDICATION, AND TAKE DIRECTED NO TYLENOL OR IBUPROFEN OR NAPROXEN FOLLOW UP WITH YOUR DR ON FRIDAY FOR FURTHER CARE All discharge instructions reviewed with patient and/or family. Voiced understanding. Scripts Pantoprazole Sodium (Protonix) 40 Mg Tablet. 40 MG PO DAILY, #15 TAB Prov: JIE WATSON DO 10/26/22 Promethazine HCl (Promethazine Tablet) 25 Mg Tablet 25 MG PO Q8H PRN for NAUSEA/VOMITING, #14 TAB 0 Refills Prov: JIE WATSON DO 10/26/22 Ondansetron (Ondansetron Odt) 8 Mg Tab.rapdis 8 MG PO Q6H, #10 TAB Prov: JIE WATSON DO 10/26/22 Cefdinir (Cefdinir) 300 Mg Capsule 300 MG PO BID, #20 CAP Prov: JIE WATSON DO 10/26/22 JIE WATSON DO Oct 26, 2022 20:39
[2022-10-26] MEDS ORDERED: ONDANSETRON 4 MG/2 ML (SDV) Z0FRAN IVP ONE (20:45)
[2022-10-26] MEDS ORDERED: LACTATED RINGERS 1,000 ML IV ONE (20:45)
[2022-10-26 20:47] LABS: BASOPHILS # (AUTO) 0.1 10^3/uL (0.0-0.1); BASOPHILS % (AUTO) 1 % (0-10); EOSINOPHILS # (AUTO) 0.2 10^3/uL (0.0-0.3); EOSINOPHILS % (AUTO) 3 % (0-10); HEMATOCRIT 34 % (40-54); LYMPHOCYTES # (AUTO) 2.3 10^3/uL (1.0-4.0); LYMPHOCYTES % (AUTO) 27 % (12-44); MEAN CORPUSCULAR HEMOGLOBIN 29 pg (25-34); MEAN CORPUSCULAR HGB CONC 32 g/dL (32-36); MEAN CORPUSCULAR VOLUME 90 fL (80-99); MEAN PLATELET VOLUME 10.6 fL (9.0-12.2); MONOCYTES # (AUTO) 0.5 10^3/uL (0.0-1.0); MONOCYTES % (AUTO) 5 % (0-12); NEUTROPHILS # (AUTO) 5.6 10^3/uL (1.8-7.8); NEUTROPHILS % (AUTO) 65 % (42-75); PLATELET COUNT 235 10^3/uL (130-400); WHITE BLOOD COUNT 8.7 10^3/uL (4.3-11.0)
[2022-10-26 20:56] LABS: ALBUMIN 4.1 GM/DL (3.2-4.5); CHLORIDE 105 MMOL/L (98-107); POTASSIUM 3.7 MMOL/L (3.6-5.0); SODIUM 139 MMOL/L (135-145)
[2022-10-26 20:57] LABS: CALCIUM 8.9 MG/DL (8.5-10.1)
[2022-10-26 20:58] LABS: AMYLASE 139 U/L (25-125); GLUCOSE 143 MG/DL (70-105)
[2022-10-26 20:59] LABS: CARBON DIOXIDE 22 MMOL/L (21-32); TOTAL PROTEIN 8.2 GM/DL (6.4-8.2)
[2022-10-26 21:00] LABS: BILIRUBIN,TOTAL 0.5 MG/DL (0.1-1.0)
[2022-10-26 21:02] LABS: ALKALINE PHOSPHATASE 209 U/L (40-136); CREATININE SERUM 4.06 MG/DL (0.60-1.30); GFR ESTIMATED 18
[2022-10-26 21:03] LABS: BUN/CREATININE RATIO 8
[2022-10-26 21:05] LABS: ALANINE AMINOTRANSFERASE 112 U/L (0-55); MAGNESIUM 2.3 MG/DL (1.6-2.4)
[2022-10-26 21:06] LABS: LIPASE 82 U/L (8-78)
[2022-10-26 21:13] LABS: BILIRUBIN,URINE NEGATIVE (NEGATIVE); CLARITY,URINE CLEAR; COLOR,URINE YELLOW; GLUCOSE, URINE (UA) TRACE (NEGATIVE); KETONES,URINE NEGATIVE (NEGATIVE); LEUKOCYTE ESTERASE ,URINE 1+ (NEGATIVE); NITRITE,URINE POSITIVE (NEGATIVE); PH,URINE 6.5 (5-9); PROTEIN,URINE 2+ (NEGATIVE)
[2022-10-26 21:24] LABS: BACTERIA,URINE FEW /HPF; RBC,URINE 0-2 /HPF; SQUAMOUS EPITHELIAL CELL,UR RARE /HPF
[2022-10-26] MEDS ORDERED: PROMETHAZINE INJ 25 MG/ML (PHENERGAN) AMP IM ONE (21:30)
[2022-10-26 21:38] LABS: AMPHETAMINE SCREEN, URINE NEGATIVE (NEGATIVE); BARBITURATE SCREEN URINE NEGATIVE (NEGATIVE); BENZODIAZEPINES SCREEN URINE POSITIVE (NEGATIVE); CANNABINOID SCREEN, URINE NEGATIVE (NEGATIVE); COCAINE SCREEN URINE NEGATIVE (NEGATIVE); METHADONE STAT NEGATIVE (NEGATIVE); OPIATE SCREEN URINE POSITIVE (NEGATIVE); OXYCODONE STAT NEGATIVE (NEGATIVE); PROPOXYPHENE STAT NEGATIVE (NEGATIVE); TRICYCLIC ANTIDEPRESSANTS SCRE NEGATIVE (NEGATIVE)
--- NOTE | 2022-10-26 21:41 | Diagnostic Imaging Report ---
CT Abdomen/pelvis w/o TECHNIQUE: Unenhanced CT imaging of the abdomen and pelvis was performed. 2D reformats are created and submitted for interpretation. Automatic exposure controls were utilized to optimize patient dose. INDICATION: Elevated liver function test with nausea and vomiting. Chronic renal failure. COMPARISON: 05/29/2021. FINDINGS: Lower chest: The lung bases are clear. No pericardial or pleural effusion. Peritoneum: No free intraperitoneal air or fluid. Liver and biliary system: Unenhanced liver is normal. Cholecystectomy. Spleen and Pancreas: Spleen is normal. Unenhanced pancreas is grossly normal. Adrenals: Normal. tract: Stable atrophic kidneys with extensive calcifications within the medulla likely due to nephrocalcinosis. Right renal cyst is unchanged. No obstructive uropathy or ureteral stone. Urinary bladder is normally distended. Prostate is not enlarged. GI tract: Stomach is filled with fluid and food debris. No bowel obstruction. No pericolonic inflammatory changes. Normal appendix. Vasculature and Lymph nodes: Normal caliber aorta. No abdominal or pelvic lymphadenopathy. Musculoskeletal: No concerning osseous lesion. IMPRESSION: 1. Stable atrophic kidneys with medullary nephrocalcinosis. No obstructive uropathy. 2. No bowel obstruction, colitis or diverticulitis. Dictated by: Dictated on workstation # [id number]
[2022-10-26] MEDS: cefTRIAXone 1 GM PRE-MIX 50 ML IV ONE ×2 (22:03→22:30)
[2022-10-26] MEDS: LACTATED RINGERS 1,000 ML IV ONE ×2 (22:03→22:30)
[2022-10-26] MEDS ORDERED: CEFD300C3 PO (22:19)
[2022-10-26] MEDS ORDERED: PROM25TA14 PO (22:19)
[2022-10-26] MEDS ORDERED: PANT40TA2 PO (22:19)
[2022-10-26] MEDS ORDERED: ONDA8TAB13 PO (22:19)
[2022-10-26] MEDS ORDERED: LIDOCAINE 1% INJ 20 ML VIAL INJ ONE (22:30)
[2022-10-26] MEDS ORDERED: cefTRIAXone 1,000 MG VIAL IM ONE (22:30)
[2022-10-26 23:05] VITALS: BP 123/73
[2022-10-28 12:16] LABS: HEPATITIS C ANTIBODY C Non-Reactive (Non-Reactive)
== END 2022-10-26 22:50 | disposition home or self-care (01) ==
LOC: EDUNIT# 20:26 → ER 20:27
DX: N39.0 Urinary tract infection, site not specified (principal); Q61.5 Medullary cystic kidney; N18.6 End stage renal disease; R74.8 Abnormal levels of other serum enzymes; Z88.8 Allergy status to other drugs, medicaments and biological substances; Z20.822 Contact with and (suspected) exposure to COVID-19; Z28.310 Unvaccinated for COVID-19
CPT/HCPCS: 74176; 80053; 80074; 80306; 81000; 82150; 83605; 83690; 83735; 84145; 84443; 85025; 87077; 87088; 87186; 87636; 93041; 99283; G0480; 36415; 80320

== ENCOUNTER 2022-12-10 20:06 | Emergency (ER) | payer MEDICARE, MEDICAID ==
[~2022-12-10 20:06] MED LIST changes: +CEFD300C3 PO; +PANT40TA2 PO
[2022-12-10 21:47] LABS: BILIRUBIN,URINE NEGATIVE (NEGATIVE); CLARITY,URINE CLEAR; COLOR,URINE YELLOW; GLUCOSE, URINE (UA) TRACE (NEGATIVE); KETONES,URINE NEGATIVE (NEGATIVE); LEUKOCYTE ESTERASE ,URINE NEGATIVE (NEGATIVE); NITRITE,URINE POSITIVE (NEGATIVE); PH,URINE 6.5 (5-9); PROTEIN,URINE 2+ (NEGATIVE)
[2022-12-10 22:00] LABS: BACTERIA,URINE TRACE /HPF
[2022-12-10] MEDS ORDERED: NS IV 1000 ML 1,000 ML IV SCH (22:00)
[2022-12-10] MEDS ORDERED: PROMETHAZINE INJ 25 MG/ML (PHENERGAN) AMP IVP ONE (22:00)
[2022-12-10 22:16] LABS: AMPHETAMINE SCREEN, URINE NEGATIVE (NEGATIVE); BARBITURATE SCREEN URINE NEGATIVE (NEGATIVE); BENZODIAZEPINES SCREEN URINE NEGATIVE (NEGATIVE); CANNABINOID SCREEN, URINE NEGATIVE (NEGATIVE); COCAINE SCREEN URINE NEGATIVE (NEGATIVE); METHADONE STAT NEGATIVE (NEGATIVE); OPIATE SCREEN URINE POSITIVE (NEGATIVE); OXYCODONE STAT NEGATIVE (NEGATIVE); PROPOXYPHENE STAT NEGATIVE (NEGATIVE); TRICYCLIC ANTIDEPRESSANTS SCRE NEGATIVE (NEGATIVE)
[2022-12-10 22:40] LABS: BASOPHILS % (AUTO) 0 % (0-10); EOSINOPHILS # (AUTO) 0.1 10^3/uL (0.0-0.3); EOSINOPHILS % (AUTO) 1 % (0-10); HEMATOCRIT 36 % (40-54); HEMOGLOBIN 11.9 g/dL (13.3-17.7); LYMPHOCYTES # (AUTO) 1.4 10^3/uL (1.0-4.0); LYMPHOCYTES % (AUTO) 14 % (12-44); MEAN CORPUSCULAR HEMOGLOBIN 29 pg (25-34); MEAN CORPUSCULAR HGB CONC 33 g/dL (32-36); MEAN CORPUSCULAR VOLUME 89 fL (80-99); MEAN PLATELET VOLUME 10.5 fL (9.0-12.2); MONOCYTES # (AUTO) 0.6 10^3/uL (0.0-1.0); MONOCYTES % (AUTO) 6 % (0-12); NEUTROPHILS % (AUTO) 79 % (42-75); PLATELET COUNT 231 10^3/uL (130-400); WHITE BLOOD COUNT 10.1 10^3/uL (4.3-11.0)
[2022-12-10 22:47] LABS: POTASSIUM 3.5 MMOL/L (3.6-5.0)
[2022-12-10 22:48] LABS: CALCIUM 8.8 MG/DL (8.5-10.1)
[2022-12-10 22:52] LABS: CREATININE SERUM 4.23 MG/DL (0.60-1.30)
[2022-12-10 22:55] LABS: MAGNESIUM 2.3 MG/DL (1.6-2.4)
[2022-12-10] MEDS ORDERED: diphenhydrAMINE 50 MG/ML INJ (BENADRYL) IVP ONE (23:30)
[2022-12-11] MEDS ORDERED: DOXY100T2 PO (00:39)
[2022-12-11] MEDS ORDERED: DOXYCYCLINE 100 MG (VIBRAMYCIN) TABLET PO STA (00:39)
--- NOTE | 2022-12-11 00:39 | ED General ---
General Chief Complaint: Abdominal/GI Problems Stated Complaint: NAUSEA,VOMITING Source of Information: Patient Exam Limitations: No Limitations History of Present Illness Date Seen by Provider: Dec 10, 2022 Time Seen by Provider: 21:27 Initial Comments This 42-year-old gentleman presents to the emergency room with complaints of refractory nausea and vomiting since 1800 after taking Zofran. He was still too nauseated to be able to take Phenergan. He did try to take Benadryl which was not effective. He reports having these severe episodes of nausea and vomiting once or twice a month. Sometimes this occurs when he takes antibiotics but is not presently on antibiotics. He did have a recent urinary tract infection which was treated with doxycycline. He finished that on Friday. He has history of medullary sponge kidney and chronic renal failure. He also has history of renal stones and lithotripsy. His primary care is at the [facility]. His cardiothoracic anesthesia technician is Dr. Kash Bullock. He denies pain, fever, diarrhea, or constipation. Allergies and Home Medications Allergies Coded Allergies: acetaminophen (Unverified Allergy, Intermediate, 08/15/19) dexamethasone (Unverified Allergy, Intermediate, 08/15/19) fentanyl (Unverified Allergy, Intermediate, 08/15/19) glycopyrrolate (Unverified Allergy, Intermediate, 08/15/19) ketorolac (Unverified Allergy, Intermediate, 08/15/19) metoclopramide (Unverified Allergy, Intermediate, 08/15/19) oxycodone (Unverified Allergy, Intermediate, 08/15/19) prochlorperazine (Unverified Allergy, Intermediate, 08/15/19) promethazine (Unverified Allergy, Intermediate, 08/15/19) suppository route only Patient Home Medication List Home Medication List Reviewed: Yes Cefdinir (Cefdinir) 300 Mg Capsule, 300 MG PO BID Prescribed by: JIE WATSON on 10/26/222218 Cefuroxime Axetil (Cefuroxime) 250 Mg Tablet, 250 MG PO BID Prescribed by: DONNA GIBSON on 08/16/222029 Doxycycline Hyclate (Doxycycline Hyclate) 100 Mg Tablet, 100 MG PO BID Prescribed by: JUANA TALAMANTES on 12/11/22 0039 Nitrofurantoin Macrocrystal (Nitrofurantoin) 100 Mg Capsule, 100 MG PO BID Prescribed by: MARVIN WILLIAMSON on 03/13/211913 Ondansetron (Ondansetron Odt) 4 Mg Tab.rapdis, 4 MG PO Q6H PRN for WINIFRED SEA/VOMITING Prescribed by: MARVIN WILLIAMSON on 03/13/211913 Ondansetron (Ondansetron Odt) 8 Mg Tab.rapdis, 8 MG PO Q6H PRN for NAUSEA/VOMITING Prescribed by: DONNA GIBSON on 03/15/21 160 Ondansetron (Ondansetron Odt) 8 Mg Tab.rapdis, 8 MG PO Q6H Prescribed by: JIE WATSON on 10/26/222218 Pantoprazole Sodium (Protonix) 40 Mg Tablet.dr, 40 MG PO DAILY Prescribed by: JIE WATSON on 10/26/222218 Promethazine HCl (Promethazine Tablet) 25 Mg Tablet, 25 MG PO Q8H PRN for NAUSEA/VOMITING Prescribed by: MARVIN WILLIAMSON on 10/06/221822 Promethazine HCl (Promethazine Tablet) 25 Mg Tablet, 25 MG PO Q8H PRN for NAUSEA/VOMITING Prescribed by: JIE WATSON on 10/26/222218 Review of Systems Review of Systems Constitutional: no symptoms reported EENTM: no symptoms reported Respiratory: no symptoms reported Cardiovascular: no symptoms reported Gastrointestinal: see HPI Genitourinary: see HPI Musculoskeletal: no symptoms reported Skin: no symptoms reported Psychiatric/Neurological: No Symptoms Reported Hematologic/Lymphatic: No Symptoms Reported Immunological/Allergic: no symptoms reported Past Sinrcyq-Ktwvle-Ykbpxs Hx Patient Social History Tobacco Use?: No Use of E-Cig and/or Vaping dev: No Alcohol Use?: No Immunizations Up To Date First/Initial COVID19 Vaccinat: NONE Second COVID19 Vaccination Erlin: NONE Third COVID19 Vaccination Date: NONE Seasonal Allergies Seasonal Allergies: No Past Medical History Surgery/Hospitalization HX: CKD, ESRD Surgeries: Yes ( LITHOTRIPSY X 3) Renal Respiratory: No Cardiac: No Neurological: No Genitourinary: Yes (MEDULLARY SPONGE KIDNEY; KIDNEY STONES; CHRONIC RENAL FAILURE-NO DIALYSIS) Kidney Stones, Renal Failure, UTI-Chronic Gastrointestinal: No Musculoskeletal: Yes (CHRONIC FLANK PAIN ) Endocrine: No HEENT: No Cancer: No Psychosocial: No Integumentary: No Blood Disorders: No Physical Exam Vital Signs Vital Signs - First Documented 12/10/22 21:14 Temp 37.0 Pulse 120 Resp 18 B/P (MAP) 122/83 (96) Pulse Ox 100 O2 Delivery Room Air Capillary Refill : Height, Weight, BMI Height: '" Weight: lbs. oz. kg; 25.00 BMI Method: General Appearance: WD/WN, Anxious HEENT: PERRL/EOMI, Normal ENT Inspection, Other (Pharynx somewhat dry) Neck: Normal Inspection Respiratory: Lungs Clear, Normal Breath Sounds Cardiovascular: No Edema, No Murmur, Tachycardia Gastrointestinal: Non Tender, Soft; No Distended Extremity: Normal Inspection, No Pedal Edema Neurologic/Psychiatric: Alert, Oriented x3, No Motor/Sensory Deficits, Other (Mildly anxious) Skin: Normal Color, Warm/Dry Progress/Results/Core Measures Suspected Sepsis SIRS Temperature: Pulse: Respiratory Rate: Laboratory Tests 12/10/22 22:28: White Blood Count 10.1 Blood Pressure / Mean: Laboratory Tests 12/10/22 22:28: Creatinine 4.23H, Platelet Count 231 Results/Orders Lab Results Laboratory Tests Test 12/10/22 21:20 12/10/22 22:28 Range/Units Urine Color YELLOW Urine Clarity CLEAR Urine pH 6.5 5-9 Urine Specific [place] 1.025 H 1.016-1.022 Urine Protein 2+ H NEGATIVE Urine Glucose (UA) TRACE H NEGATIVE Urine Ketones NEGATIVE NEGATIVE Urine Nitrite POSITIVE H NEGATIVE Urine Bilirubin NEGATIVE NEGATIVE Urine Urobilinogen 0.2 < = 1.0 MG/DL Urine Leukocyte Esterase NEGATIVE NEGATIVE Urine RBC (Auto) 2+ H NEGATIVE Urine RBC 2-5 H /HPF Urine WBC 5-10 H /HPF Urine Squamous Epithelial Cells 2-5 /HPF Urine Crystals NONE /LPF Urine Bacteria TRACE /HPF Urine Casts NONE /LPF Urine Mucus NEGATIVE /LPF Urine Culture Indicated YES Urine Opiates Screen POSITIVE H NEGATIVE Urine Oxycodone Screen NEGATIVE NEGATIVE Urine Methadone Screen NEGATIVE NEGATIVE Urine Propoxyphene Screen NEGATIVE NEGATIVE Urine Barbiturates Screen NEGATIVE NEGATIVE Ur Tricyclic Antidepressants Screen NEGATIVE NEGATIVE Urine Phencyclidine Screen NEGATIVE NEGATIVE Urine Amphetamines Screen NEGATIVE NEGATIVE Urine Methamphetamines Screen NEGATIVE NEGATIVE Urine Benzodiazepines Screen NEGATIVE NEGATIVE Urine Cocaine Screen NEGATIVE NEGATIVE Urine Cannabinoids Screen NEGATIVE NEGATIVE Influenza Type A (RT-PCR) Not Detected Not Detecte Influenza Type B (RT-PCR) Not Detected Not Detecte SARS-CoV-2 RNA (RT-PCR) Not Detected Not Detecte White Blood Count 10.1 4.3-11.0 10^3/uL Red Blood Count 4.09 L 4.30-5.52 10^6/uL Hemoglobin 11.9 L 13.3-17.7 g/dL Hematocrit 36 L 40-54 % Mean Corpuscular Volume 89 80-99 fL Mean Corpuscular Hemoglobin 29 25-34 pg Mean Corpuscular Hemoglobin Concent 33 32-36 g/dL Red Cell Distribution Width 14.0 10.0-14.5 % Platelet Count 231 130-400 10^3/uL Mean Platelet Volume 10.5 9.0-12.2 fL Immature Granulocyte % (Auto) 0 % Neutrophils (%) (Auto) 79 H 42-75 % Lymphocytes (%) (Auto) 14 12-44 % Monocytes (%) (Auto) 6 0-12 % Eosinophils (%) (Auto) 1 0-10 % Basophils (%) (Auto) 0 0-10 % Neutrophils # (Auto) 8.0 H 1.8-7.8 10^3/uL Lymphocytes # (Auto) 1.4 1.0-4.0 10^3/uL Monocytes # (Auto) 0.6 0.0-1.0 10^3/uL Eosinophils # (Auto) 0.1 0.0-0.3 10^3/uL Basophils # (Auto) 0.0 0.0-0.1 10^3/uL Immature Granulocyte # (Auto) 0.0 0.0-0.1 10^3/uL Sodium Level 140 135-145 MMOL/L Potassium Level 3.5 L 3.6-5.0 MMOL/L Chloride Level 106 98-107 MMOL/L Carbon Dioxide Level 20 L 21-32 MMOL/L Anion Gap 14 5-14 MMOL/L Blood Urea Nitrogen 37 H 7-18 MG/DL Creatinine 4.23 H 0.60-1.30 MG/DL Estimat Glomerular Filtration Rate 17 BUN/Creatinine Ratio 9 Glucose Level 114 H 70-105 MG/DL Calcium Level 8.8 8.5-10.1 MG/DL Magnesium Level 2.3 1.6-2.4 MG/DL C-Reactive Protein High Sensitivity 0.40 0.00-0.50 MG/DL My Orders Orders - JUANA LUND MD Ua Culture If Indicated (12/10/22 21:27) Covid 19 Inhouse Test (12/10/22 21:27) Influenza A And B By Pcr (12/10/22 21:27) Basic Metabolic Panel (12/10/22 21:54) Cbc With Automated Diff (12/10/22 21:54) Drug Screen Stat (Urine) (12/10/22 21:54) Magnesium (12/10/22 21:54) Ed Iv/Invasive Line Start (12/10/22 21:54) Ns Iv 1000 Ml (Sodium Chloride 0.9%) (12/10/22 22:00) Promethazine Injection (Phenergan Injec (12/10/22 22:00) Urine Culture (12/10/22 21:20) Hs C Reactive Protein (12/10/22 22:39) Diphenhydramine Injection (Benadryl Inje (12/10/22 23:30) Doxycycline Hyclate Tablet (Vibramycin T (12/11/22 00:39) Medications Given in ED Current Medications Medications Dose Ordered Sig/Ashley Route Start Time Stop Time Status Last Admin Dose Admin Diphenhydramine HCl 25 mg ONCE ONCE IVP 12/10/22 23:30 12/10/22 23:31 DC 12/10/22 23:26 25 MG Promethazine HCl 25 mg ONCE ONCE IVP 12/10/22 22:00 12/10/22 22:01 DC 12/10/22 22:30 25 MG Vital Signs/I&O 12/10/22 12/11/22 21:14 01:09 Temp 37.0 36.7 Pulse 120 100 Resp 18 16 B/P (MAP) 122/83 (96) 115/78 Pulse Ox 100 100 O2 Delivery Room Air Room Air 12/11/22 00:00 Intake Total 1000 ml Balance 1000 ml Capillary Refill : Progress Note : Progress Note Patient was noted to be significantly tachycardic. Given his chronic health issues, this prompted work-up with labs and treatment with IV fluids. He had requested an injection of Phenergan but this was given in his IV fluids instead. He still had some refractory nausea and was given Benadryl at his request. Th is controlled his nausea. There was some subtle suggestion of urinary tract infection in his urinalysis. His treatment was continued with doxycycline and he was instructed to follow-up on urine cultures. See discharge instructions for further discussion. Renal function was noted to be at baseline. Departure Impression Primary Impression: Nausea & vomiting Qualified Codes: R11.2 - Nausea with vomiting, unspecified Additional Impressions: Medullary sponge kidney of both kidneys Urinary tract infection Qualified Codes: N39.0 - Urinary tract infection, site not specified Disposition: 01 HOME, SELF-CARE Condition: Improved Departure-Patient Inst. Decision time for Depature: 00:36 Referrals: SEAN MCGREGOR MD (PCP/Family) Primary Care Physician Patient Instructions: Urinary Tract Infection, Adult ED Add. Discharge Instructions: Drink plenty of clear liquids to stay well-hydrated. Complete your antibiotics as prescribed. Call your primary care provider on afternoon or Friday to review urine cultures to determine if doxycycline is the most appropriate antibiotic for this possible urinary tract infection. If you are unable to get direction from your primary care provider by Friday, you may call Dr. Lund in the emergency room. Feel free to read these discharge instructions to the staff member answering the phone and asked to be forwarded to Dr. Lund. You may continue using Zofran and Phenergan as previously prescribed. Return to care if you have worsening symptoms despite following these instructions. Follow-up with your primary care provider regarding your recurrent episodes of nausea and vomiting and with your cardiothoracic anesthesia technician as previously directed. All discharge instructions reviewed with patient and/or family. Voiced understanding. Scripts Doxycycline Hyclate (Doxycycline Hyclate) 100 Mg Tablet 100 MG PO BID, #14 TAB 0 Refills Prov: JUANA LUND MD 12/11/22 Copy Copies To 1: [facility]/JUANA LU MD Dec 11, 2022 00:39
[2022-12-11 01:09] VITALS: BP 115/78
== END 2022-12-11 00:53 | disposition home or self-care (01) ==
LOC: EDUNIT# 20:06 → ER 20:07
DX: N39.0 Urinary tract infection, site not specified (principal); Q61.5 Medullary cystic kidney; Z20.822 Contact with and (suspected) exposure to COVID-19; Z28.310 Unvaccinated for COVID-19
CPT/HCPCS: 36415; 80048; 80306; 81000; 83735; 85025; 86141; 87088; 87636; 99283

== ENCOUNTER 2022-12-17 21:32 | Emergency (ER) | payer MEDICARE, MEDICAID ==
[~2022-12-17] VITALS: Ht 180.3 cm; Wt 77.1 kg
[~2022-12-17 21:32] MED LIST changes: +DOXY100T2 PO
--- NOTE | 2022-12-17 22:08 | ED General ---
General Chief Complaint: Abdominal/GI Problems Stated Complaint: NAUSEA,VOMITING Nursing Triage Note: PT AMB TO [facility] 5 WITH CC NAUSEA AND VOMITING SINCE 1900 THIS EVEING. PT REPORTS HE TOOK ZPFRAN PRIOR TO ARRIVAL. PT STATES HE BELIEVES THIS IS CAUSED BY THE MACROBID HE STARTED YESTERDAY. DENIES ABD PAIN Source of Information: Patient Exam Limitations: No Limitations History of Present Illness Date Seen by Provider: Dec 17, 2022 Time Seen by Provider: 21:58 Initial Comments 42-year-old male presents to the emergency department today for nausea and vomiting. Symptoms started about 7 PM this evening. Vomited 3 times. Emesis is non bloody nonbilious. He has no focal abdominal pain but does have significant nausea. He states Phenergan usually works for him though he is allergic to the rectal formulation. This causes hives. He has not IM and oral Phenergan multiple times without any reactions. He denies any fevers or chills. He is on Macrobid for a urinary tract infection. He did take a dose prior to the onset of his symptoms this evening. He tried to use oral Zofran at home but vomited and does not believe that is into his system. Allergies and Home Medications Allergies Coded Allergies: acetaminophen (Unverified Allergy, Intermediate, 08/15/19) dexamethasone (Unverified Allergy, Intermediate, 08/15/19) fentanyl (Unverified Allergy, Intermediate, 08/15/19) glycopyrrolate (Unverified Allergy, Intermediate, 08/15/19) ketorolac (Unverified Allergy, Intermediate, 08/15/19) metoclopramide (Unverified Allergy, Intermediate, 08/15/19) oxycodone (Unverified Allergy, Intermediate, 08/15/19) prochlorperazine (Unverified Allergy, Intermediate, 08/15/19) promethazine (Unverified Allergy, Intermediate, 08/15/19) suppository route only Patient Home Medication List Home Medication List Reviewed: Yes Cefdinir (Cefdinir) 300 Mg Capsule, 300 MG PO BID Prescribed by: JIE WATSON on 10/26/222218 Cefuroxime Axetil (Cefuroxime) 250 Mg Tablet, 250 MG PO BID Prescribed by: DONNA GIBSON on 08/16/222029 Doxycycline Hyclate (Doxycycline Hyclate) 100 Mg Tablet, 100 MG PO BID Prescribed by: JUANA TALAMANTES on 12/11/22 0039 Nitrofurantoin Macrocrystal (Nitrofurantoin) 100 Mg Capsule, 100 MG PO BID Prescribed by: MARVIN WILLIAMSON on 03/13/211913 Ondansetron (Ondansetron Odt) 4 Mg Tab.rapdis, 4 MG PO Q6H PRN for NAUSEA /VOMITING Prescribed by: MARVIN WILLIAMSON on 03/13/211913 Ondansetron (Ondansetron Odt) 8 Mg Tab.rapdis, 8 MG PO Q6H PRN for NAUSEA/VOMITING Prescribed by: DONNA GIBSON on 03/15/21 160 Ondansetron (Ondansetron Odt) 8 Mg Tab.rapdis, 8 MG PO Q6H Prescribed by: JIE WATSON on 10/26/222218 Pantoprazole Sodium (Protonix) 40 Mg Tablet.dr, 40 MG PO DAILY Prescribed by: JIE WATSON on 10/26/222218 Promethazine HCl (Promethazine Tablet) 25 Mg Tablet, 25 MG PO Q8H PRN for NAUSEA/VOMITING Prescribed by: MARVIN WILLIAMSON on 10/06/221822 Promethazine HCl (Promethazine Tablet) 25 Mg Tablet, 25 MG PO Q8H PRN for NAUSEA/VOMITING Prescribed by: JIE WATSON on 10/26/222218 Review of Systems Review of Systems Constitutional: no symptoms reported EENTM: no symptoms reported Respiratory: no symptoms reported Cardiovascular: no symptoms reported Gastrointestinal: nausea, vomiting Genitourinary: no symptoms reported Musculoskeletal: no symptoms reported Skin: no symptoms reported Psychiatric/Neurological: No Symptoms Reported Hematologic/Lymphatic: No Symptoms Reported Immunological/Allergic: no symptoms reported Past Yufwgst-Ilvjuy-Xmawvh Hx Patient Social History Tobacco Use?: No Substance use?: No Alcohol Use?: No Pt feels they are or have been: No Immunizations Up To Date First/Initial COVID19 Vaccinat: NONE Second COVID19 Vaccination Erlin: NONE Third COVID19 Vaccination Date: NONE Seasonal Allergies Seasonal Allergies: No Past Medical History Surgery/Hospitalization HX: CKD, ESRD Surgeries: Yes ( LITHOTRIPSY X 3) Renal Respiratory: No Cardiac: No Neurological: No Genitourinary: Yes (MEDULLARY SPONGE KIDNEY; KIDNEY STONES; CHRONIC RENAL FAILURE-NO DIALYSIS) Kidney Stones, Renal Failure, UTI-Chronic Gastrointestinal: No Musculoskeletal: Yes (CHRONIC FLANK PAIN ) Endocrine: No HEENT: No Cancer: No Psychosocial: No Integumentary: No Blood Disorders: No Family Medical History Reviewed Nursing Family Hx No Pertinent Family Hx Physical Exam Vital Signs Vital Signs - First Documented 12/17/22 21:43 Temp 36.6 Pulse 120 Resp 20 B/P (MAP) 125/82 (96) Pulse Ox 97 O2 Delivery Room Air Capillary Refill : Less Than 3 Seconds Height, Weight, BMI Height: '" Weight: lbs. oz. kg; 23.00 BMI Method: General Appearance: No Apparent Distress, WD/WN HEENT: Normal ENT Inspection, Pharynx Normal Neck: Full Range of Motion, Normal Inspection, Non Tender, Supple Respiratory: Chest Non Tender, Lungs Clear, Normal Breath Sounds, No Accessory Muscle Use, No Respiratory Distress Cardiovascular: No Murmur, Normal Peripheral Pulses, Tachycardia Gastrointestinal: Normal Bowel Sounds, No Organomegaly, No Pulsatile Mass, Non Tender, Soft Extremity: Normal Capillary Refill, No Pedal Edema Neurologic/Psychiatric: Alert, Oriented x3 Skin: Normal Color, Warm/Dry Progress/Results/Core Measures Suspected Sepsis SIRS Temperature: Pulse: 120 Respiratory Rate: 20 Blood Pressure 125 /82 Mean: 96 Results/Orders My Orders Orders - TY SIDHU DO Promethazine Injection (Phenergan Injec (12/17/22 22:15) Medications Given in ED Vital Signs/I&O 12/17/22 12/17/22 21:43 22:39 Temp 36.6 Pulse 120 120 Resp 20 20 B/P (MAP) 125/82 (96) 125/82 Pulse Ox 97 97 O2 Delivery Room Air Room Air Capillary Refill : Less Than 3 Seconds Blood Pressure Mean: 96 Departure Communication (Admissions) Patient is stable with a reassuring exam. He does have a history of chronic nausea and vomiting. He thinks currently symptoms may be related to antibiotic use. I looked through multiple old urine cultures and he has h/o staph epidermidis, sensitive to macrobid and vanc. Unfortunately unable to provide alternative abx at this time. Impression Primary Impression: Nausea and vomiting Qualified Codes: R11.2 - Nausea with vomiting, unspecified Disposition: HOME, SELF-CARE Condition: Stable Departure-Patient Inst. Referrals: SEAN MCGREGOR MD (PCP/Family) Primary Care Physician Patient Instructions: Nausea and Vomiting, Adult (DC) Add. Discharge Instructions: Continue home medications as previously prescribed. Unfortunately I am not able to offer any local treatment antibiotic as the type of bacteria is only sensitive to the Levaquin. Continue to use nausea medicines as needed, increase your fluids and rest. All discharge instructions reviewed with patient and/or family. Voiced understanding. TY SIDHU DO Dec 17, 2022 22:08
[2022-12-17] MEDS ORDERED: PROMETHAZINE INJ 25 MG/ML (PHENERGAN) AMP IM ONE (22:15)
[2022-12-17 22:39] VITALS: BP 125/82
== END 2022-12-17 22:39 | disposition home or self-care (01) ==
LOC: EDUNIT# 21:32 → ER 21:33
DX: R11.2 Nausea with vomiting, unspecified (principal); N39.0 Urinary tract infection, site not specified; Z88.8 Allergy status to other drugs, medicaments and biological substances; Z28.310 Unvaccinated for COVID-19
CPT/HCPCS: 99284

== ENCOUNTER 2023-01-04 01:46 | Emergency (ER) | payer MEDICARE, MEDICAID ==
[~2023-01-04] VITALS: Ht 180.3 cm; Wt 77.1 kg
[2023-01-04] MEDS ORDERED: FAMO40TA6 (01:53)
[2023-01-04] MEDS ORDERED: LORAZEPAM (01:53)
[2023-01-04] MEDS ORDERED: MORP15TA (01:53)
[2023-01-04] MEDS ORDERED: MORP-68 (01:53)
[2023-01-04] MEDS ORDERED: METHOCARBAMOL (01:53)
--- NOTE | 2023-01-04 02:02 | ED EENT ---
History of Present Illness General Chief Complaint: Dental Problems/Pain Stated Complaint: JAW LOCKING UP Nursing Triage Note: brought in by [facility] ems for right jaw pain, feels like jaw is locking up since 0. Source: patient Exam Limitations: no limitations History of Present Illness Date Seen by Provider: Jan 04, 2023 Time Seen by Provider: 02:01 Initial Comments Patient is a 42yo male who presents to the ER complaining of "my jaw locked up". He states this started at about 11pm. He thinks it was because he was "bearing down" while he had kidney stone pain. He states this has happened many times before and a shot of "phenergan and benadryl" always makes it better. He denies any dental pain or mouth swelling. He denies any trauma. No covid symptoms or concerns; no runny nose, sore throat or cough. No shortness of breath. No chest pain. He is, at presentation, crying without tears. Seems to be upset. Hands shaking. HR 130-140. Says he took his daily prescribed morphine at 11pm. He has 2 separate prescriptions for morphine, one ER and one IR. He fills them monthly and they are "prn" medications. He does not recall ever having taken Lorazepam for anxiety, although med rec reveals he had 30 1mg tablets prescribed on Nov 14. and also the same medication prescribed a month earlier. He also does not recall having a prescription for methocarbamol 500mg written and picked up 2 days ago. I have a long history of seeing Mr Malik at another facility for chronic pain and opiate addiction. Timing/Duration: abrupt (11pm) Severity: severe Location: facial (right jaw) Prearrival Treatment: prescription meds Associated Symptoms: denies symptoms Allergies and Home Medications Allergies Coded Allergies: acetaminophen (Unverified Allergy, Intermediate, 08/15/19) dexamethasone (Unverified Allergy, Intermediate, 08/15/19) fentanyl (Unverified Allergy, Intermediate, 08/15/19) glycopyrrolate (Unverified Allergy, Intermediate, 08/15/19) ketorolac (Unverified Allergy, Intermediate, 08/15/19) metoclopramide (Unverified Allergy, Intermediate, 08/15/19) oxycodone (Unverified Allergy, Intermediate, 08/15/19) prochlorperazine (Unverified Allergy, Intermediate, 08/15/19) promethazine (Unverified Allergy, Intermediate, 08/15/19) suppository route only Patient Home Medication List Home Medication List Reviewed: Yes Famotidine (Famotidine) 40 Mg Tablet, (Reported) Entered as Reported by: JACKELINE JERONIMO on 01/04/23152 Last Action: New Order Morphine Sulfate (Morphine Sulfate IR Tablet) 15 Mg Tablet, (Reported) Entered as Reported by: JACKELINE JERONIMO on 01/04/23152 Last Action: New Order Morphine Sulfate (Morphine Sulfate ER) 15 Mg Tablet.er, (Reported) Entered as Reported by: JACKELINE JERONIMO on 01/04/23152 Last Action: New Order Ondansetron (Ondansetron Odt) 4 Mg Tab.rapdis, 4 MG PO Q6H PRN for NAUSEA/VOMITING Prescribed by: MARVIN WILLIAMSON on 03/13/211913 [Lorazepam] , (Reported) Entered as Reported by: JACKELINE JERONIMO on 01/04/23152 Last Action: New Order [Methocarbamol] , (Reported) Entered as Reported by: JACKELINE JERONIMO on 01/04/23152 Last Action: New Order Discontinued Medications Cefdinir (Cefdinir) 300 Mg Capsule, 300 MG PO BID Discontinued Reason: No Longer Taking Prescribed by: JIE WATSON on 10/26/222218 Last Action: Discontinued Cefuroxime Axetil (Cefuroxime) 250 Mg Tablet, 250 MG PO BID Discontinued Reason: No Longer Taking Prescribed by: DONNA GIBSON on 08/16/22 2030 Last Action: Discontinued Doxycycline Hyclate (Doxycycline Hyclate) 100 Mg Tablet, 100 MG PO BID Discontinued Reason: No Longer Taking Prescribed by: JUANA TALAMANTES on 12/11/22 0039 Last Action: Discontinued Nitrofurantoin Macrocrystal (Nitrofurantoin) 100 Mg Capsule, 100 MG PO BID Discontinued Reason: No Longer Taking Prescribed by: MARVIN WILLIAMSON on 03/13/214 Last Action: Discontinued Ondansetron (Ondansetron Odt) 8 Mg Tab.rapdis, 8 MG PO Q6H PRN for NAUSEA/VOMITING Discontinued Reason: No Longer Taking Prescribed by: DONNA GIBSON on 03/15/21 1602 Last Action: Discontinued Ondansetron (Ondansetron Odt) 8 Mg Tab.rapdis, 8 MG PO Q6H Discontinued Reason: No Longer Taking Prescribed by: JIE WATSON on 10/26/222218 Last Action: Discontinued Pantoprazole Sodium (Protonix) 40 Mg Tablet.dr, 40 MG PO DAILY Discontinued Reason: No Longer Taking Prescribed by: JIE WATSON on 10/26/222218 Last Action: Discontinued Promethazine HCl (Promethazine Tablet) 25 Mg Tablet, 25 MG PO Q8H PRN for NAUSEA/VOMITING Discontinued Reason: No Longer Taking Prescribed by: MARVIN WILLIAMSON on 10/06/221822 Last Action: Discontinued Promethazine HCl (Promethazine Tablet) 25 Mg Tablet, 25 MG PO Q8H PRN for NAUSEA/VOMITING Discontinued Reason: No Longer Taking Prescribed by: JIE WATSON on 10/26/222218 Last Action: Discontinued Review of Systems Review of Systems Constitutional: see HPI Eyes: No Symptoms Reported Ears: No Symptoms Reported Nose: no symptoms reported Mouth: other (right jaw pain) Throat: no symptoms reported Respiratory: no symptoms reported Cardiovascular: no symptoms reported All Other Systems Reviewed Negative Unless Noted: Yes Past [id number]-Qhdkwl Hx Patient Social History Tobacco Use?: No Substance use?: No Alcohol Use?: No Pt feels they are or have been: No Immunizations Up To Date First/Initial COVID19 Vaccinat: NONE Second COVID19 Vaccination Erlin: NONE Third COVID19 Vaccination Date: NONE Seasonal Allergies Seasonal Allergies: No Past Medical History Surgery/Hospitalization HX: CKD, ESRD, renal stones, gerd, lithotripsy Surgeries: Yes ( LITHOTRIPSY X 3) Renal Respiratory: No Cardiac: No Neurological: No Genitourinary: Yes (MEDULLARY SPONGE KIDNEY; KIDNEY STONES; CHRONIC RENAL FAILURE-NO DIALYSIS) Kidney Stones, Renal Failure, UTI-Chronic Gastrointestinal: No Musculoskeletal: Yes (CHRONIC FLANK PAIN ) Endocrine: No HEENT: No Cancer: No Psychosocial: No Integumentary: No Blood Disorders: No Family Medical History No Pertinent Family Hx Physical Exam Vital Signs Vital Signs - First Documented 01/04/23 01:48 Temp 37.0 Pulse 144 Resp 20 B/P (MAP) 114/83 (93) Pulse Ox 98 O2 Delivery Room Air Height, Weight, BMI Height: '" Weight: lbs. oz. kg; 23.00 BMI Method: General Appearance: moderate distress (tearful cryig. agitated) Eyes: bilateral eye normal inspection, bilateral eye PERRL, bilateral eye EOMI Ears: bilateral ear auricle normal Nose: normal inspection Mouth/Throat: normal mouth inspection; No mandibular swelling, No trismus, No voice changes; other (no crepitance at the right TMJ; no palpable muscle spasm. Able to open his mouth in order for me to visualise the posterior pharynx. No uvular or tonsillar swelling. No lingual or floor of the mouth edema. No voice change, lisp or slur.) Neck: full range of motion, supple Cardiovascular: regular rate, rhythm, tachycardia (140) Respiratory: lungs clear, normal breath sounds, no respiratory distress, no accessory muscle use Neurologic/Psychiatric: alert, oriented x 3, other (anxious and tearful) Skin: normal color, warm/dry Procedures/Interventions Progress Trigger point injection right jaw/masseter/TMJ line. 1% plain lidocaine, 4cc used to fan the area of tenderness in the right jaw. 27g needle used to infiltrate after aspiration to enure I wasn't in a blood vessel. Progress/Results/Core Measures Results/Orders My Orders Orders - ARIE FERNANDEZ MD Lidocaine 1% Inj 20 Ml (Xylocaine 1% Inj (01/04/23 02:45) Lidocaine 1% Inj 10 Ml (Xylocaine 1% Inj (01/04/23 02:35) Promethazine Tablet (Phenergan Tablet) (01/04/23 03:00) Medications Given in ED Current Medications Medications Dose Ordered Sig/Ashley Route Start Time Stop Time Status Last Admin Dose Admin Lidocaine HCl 10 ml STK-MED ONCE .ROUTE 01/04/23 02:35 01/04/23 02:39 DC 01/04/23 02:40 10 ML Promethazine HCl 25 mg ONCE ONCE PO 01/04/23 03:00 01/04/23 03:01 DC 01/04/23 03:00 25 MG Vital Signs/I&O 01/04/23 01:48 Temp 37.0 Pulse 144 Resp 20 B/P (MAP) 114/83 (93) Pulse Ox 98 O2 Delivery Room Air Blood Pressure Mean: 93 Progress Progress Note : Time: 02:50 Progress Note Patient seen and evaluated, 42-year-old male who presents to the emergency room with right jaw pain. Patient evaluation includes physical examination. He complains of right jaw pain/"spasm". Differential diagnosis mandibular dislocation, acute dental pain/abscess. Physical exam unremarkable for any acute abnormality to the mouth, teeth, tongue, jaw. He is able to open and close his mouth completely. He had no evidence of trismus. Consideration for imaging however history and physical exam do not warrant the need. Consented patient for trigger point injection to the right jaw. 4 mL of 1% plain lidocaine were used after identifying the area of the most discomfort, infilt rate in the area in a fanning motion. Patient continued to cough and attempt to make himself vomit. He states he ran out of his Phenergan yesterday. We will give him 125 mg Phenergan for his "nausea". Patient will be discharged home. No clinical or objective findings to warrant extensive work-up from the emergency department. This is a chronic, longstanding complaint of Mr. Malik. He is recommended to follow-up with his primary care physician and his kidney specialist. Phenergan tablet given as the patient requested - in spite of "allergy" as he reports this is only to rectal phenergan. Departure Impression Primary Impression: Jaw pain Disposition: HOME, SELF-CARE Condition: Improved Departure-Patient Inst. Decision time for Depature: 03:08 Referrals: SEAN MCGREGOR MD (PCP/Family) Primary Care Physician Patient Instructions: TMJ Exercises Add. Discharge Instructions: Continue to take your daily medications as directed and as needed meds only *as needed*. When you see you are running low on your medications, you need to call your doctor's office and get a refill of your medications ordered BEFORE you run out. Call your doctor's office on Friday for an appointment next week. You may ask them to refer you to a dentis or oral surgeon to further evaluate your chronic jaw pain. They can refer you for physical therapy for your jaw. Return to the Emergency Department for any new, concerning or emergent complaints. Scripts Promethazine HCl (Promethazine Tablet) 25 Mg Tablet 25 MG PO Q6H PRN for NAUSEA/VOMITING, #5 TAB Prov: ARIE FERNANDEZ MD 01/04/23 Copy Copies To 1: SEAN MCGREGOR MD, KATHRYN M MD Jan 04, 2023 02:02
[2023-01-04] MEDS ORDERED: LIDOCAINE 1% INJ 10 ML VIAL ONE (02:35)
[2023-01-04] MEDS ORDERED: LIDOCAINE 1% INJ 20 ML VIAL INJ ONE (02:45)
[2023-01-04] MEDS ORDERED: PROMETHAZINE 25 MG (PHENERGAN) TAB PO ONE (03:00)
[2023-01-04] MEDS ORDERED: PROM25TA14 PO (03:11)
[2023-01-04 03:19] VITALS: BP 117/67
== END 2023-01-04 03:22 | disposition home or self-care (01) ==
LOC: EDUNIT# 01:46 → ER 01:48
DX: R68.84 Jaw pain (principal); R11.0 Nausea; Z88.8 Allergy status to other drugs, medicaments and biological substances; Z28.310 Unvaccinated for COVID-19
CPT/HCPCS: 99284